=== PATIENT | male | born 1950 | race African-American/Black ===

== ENCOUNTER 2017-01-05 13:22 | Inpatient (IN) | payer MEDICARE, MEDICAID ==
[~2017-01-05] VITALS: Ht 177.8 cm; Wt 68.0 kg
[2017-01-05] VITALS (7 sets, daily range): BP systolic 124–164; BP diastolic 62–88; PULSE 86–108; RESP 18–22; TEMP 98.5–98.8; O2SAT 100
[2017-01-05] MEDS ORDERED: SODIUM CHLOR 0.9% 1000 ML INJ 1,000 ML IV ONE (13:41)
[2017-01-05] MEDS ORDERED: SODIUM CHLORIDE 0.9% FLUSH 10 ML FLUSH IVF PRN (13:45)
--- NOTE | 2017-01-05 13:55 | RADRPT ---
EXAM DATE/TIME: 01/05/2017 13:52 [facility] COMPARISON: No previous studies available for comparison. INDICATIONS : Shortness of breath. MEDICAL HISTORY : None. SURGICAL HISTORY : None. ENCOUNTER: Initial ACUITY: 1 day PAIN SCORE: Non-responsive. LOCATION: Bilateral chest FINDINGS: A single view of the chest demonstrates the lungs to be symmetrically aerated without evidence of mas s, infiltrate or effusion. The cardiomediastinal contours are unremarkable. Osseous structures are intact. CONCLUSION: Normal examination. Henrik Mclaughlin MD on January 05, 2017 at 13:54 Board Certified Radiologist. This report was verified electronically.
[2017-01-05 13:58] LABS: BLOOD GAS BASE EXCESS -21.1 mmol/L (-2-2); BLOOD GAS CARBOXYHEMOGLOBIN 1.1 % (0-4); BLOOD GAS HCO3 7 mmol/L (22-26); BLOOD GAS METHEMOGLOBIN 0.9 % (0-2); BLOOD GAS O2 HGB SATURATION 97 % (90-100); BLOOD GAS OXYGEN CONTENT 20.4 Vol % (12.0-20.0); BLOOD GAS PCO2 21 mmHg (38-42); BLOOD GAS PO2 322 mmHG (61-120); BLOOD GAS TOTAL HGB 14.3 G/DL (12.0-16.0); CRITICAL VALUE YES; DRAW SITE LT RADIAL; FIO2 100 %; LITER FLOW 15 L/M; NUMBER OF ARTERIAL PUNCTURES 1; STAT YES; ULNAR PULSE PRESENT
[2017-01-05 14:04] LABS: AUTOMATED NEUTROPHIL # 14.4 TH/MM3 (1.8-7.7); BASOPHIL # 0.1 TH/MM3 (0-0.2); BASOPHIL % 0.4 % (0.0-2.0); HEMATOCRIT 51.1 % (39.0-51.0); LYMPH % 5.9 % (9.0-44.0); MEAN CELL VOLUME 94.1 FL (80.0-100.0); MEAN CORPUSCULAR HEMOGLOBIN 29.5 PG (27.0-34.0); MEAN CORPUSCULAR HGB CONC 31.3 % (32.0-36.0); MONO % 12.2 % (0.0-8.0); NEUT % 81.5 % (16.0-70.0); PLATELET COUNT 220 TH/MM3 (150-450); RED BLOOD COUNT 5.43 MIL/MM3 (4.50-5.90); RED CELL DISTRIBUTION WIDTH 14.1 % (11.6-17.2); WHITE BLOOD COUNT 17.7 TH/MM3 (4.0-11.0)
[2017-01-05 14:06] LABS: HEMO FLAGS AUTO DIFF
[2017-01-05] MEDS: DEXT 5%-NACL 0.9% 1000 ML INJ 1,000 ML IV SCH ×2 (14:13→19:13)
[2017-01-05] MEDS ORDERED: POTASSIUM CHLOR 20 MEQ PREMIX 100 ML IV PRN ×5 (14:15)
[2017-01-05] MEDS ORDERED: POTASSIUM CHLOR 40 MEQ PREMIX 100 ML IV PRN ×2 (14:15)
[2017-01-05] MEDS ORDERED: INSULIN HUMAN REGULAR 1,000 UNITS/10 ML VIAL IV PUSH ONE (14:15)
[2017-01-05] MEDS ORDERED: SODIUM BICARBONATE 8.4% SOLN 50 MEQ/50 ML VIAL IV PUSH PRN ×2 (14:15)
[2017-01-05 14:37] LABS: ALT (GPT) 41 U/L (12-78); ANION GAP 25 MEQ/L (5-15); BACTERIA, URINE RARE /hpf; BICARBONATE 8.8 MEQ/L (21.0-32.0); BLOOD UREA NITROGEN 68 MG/DL (7-18); BLOOD, URINE NEG (NEG); CHLORIDE 96 MEQ/L (98-107); GLOMERULAR FILTRATION RATE 12 ML/MIN (>89); GLUCOSE,URINE 1000 mg/dL (NEG); HYALINE CAST, URINE 1 /lpf (RARE); KETONE, URINE 40 mg/dL (NEG); NITRITE,URINE NEG (NEG); SODIUM (NA) 130 MEQ/L (136-145); SQUAMOUS EPITHELIAL CELL URINE <1 /hpf (0-5); TOTAL BILIRUBIN ADULT 1.1 MG/DL (0.2-1.0); URINE COLOR YELLOW (YELLW/STRAW)
[2017-01-05 14:38] LABS: COMMENT (UR) CULT NOT INDICATED; CULTURE IF INDICATED CULT NOT INDICATED
[2017-01-05 14:40] LABS: AST (GOT) 54 U/L (15-37); POTASSIUM 7.9 MEQ/L (3.5-5.1)
[2017-01-05 14:42] LABS: SCAN/DIFF AUTO DIFF CONFIRMED
[2017-01-05 14:43] LABS: ALKALINE PHOSPHATASE 72 U/L (45-117); CREATINE KINASE 283 U/L (39-308)
[2017-01-05 14:57] LABS: CKMB 1.9 NG/ML (0.5-3.6)
[2017-01-05] MEDS: SODIUM CHLOR 0.9% 1000 ML INJ 1,000 ML IV SCH ×3 (14:59→23:07)
[2017-01-05] MEDS ORDERED: CALCIUM CHLORIDE 10% SOLN 1 GRAM/10 ML SYR IV PUSH ONE (15:00)
[2017-01-05] MEDS: INSULIN REGULAR (IV INFUSION) 100 UNITS in SODIUM CHLORIDE 0.9% INJ 99 ML IV PRN (15:01)
--- NOTE | 2017-01-05 15:22 | PD ---
HPI Chief Complaint: Diabetic Time Seen by Provider: 13:41 Travel History International Travel<30 days: No Contact w/Intl Traveler<30days: No Traveled to known affect area: No History of Present Illness HPI This is a 66-year-old male with a history of hypertension, diabetes mellitus, who presents here after not being seen for several days and possibly up to a week. The patient had a well-being check with a found him sitting on the toilet with his clothes on. The patient was altered and unable to give history. According to the paramedics they noted he had a history of a stent in his left lower extremity. They checked his blood sugar and found to high to register. They started intravenous fluid in transferred him here. The patient is unable to give any history. [facility] Past Medical History Medical History: Unable to Obtain Diabetes: Yes Patient Takes Glucophage: No (uto) Influenza Vaccination: No (uto) Past Surgical History Surgical History: Unable to Obtain Social History Alcohol Use: No Tobacco Use: No Substance Use: No Allergies-Medications (Allergen,Severity, Reaction): Coded Allergies: No Allergy Information Available (Unverified , 01/05/17) unable to obtain-nonverbal at this time Reported Meds & Prescriptions Reported Meds & Active Scripts Active Active Prescriptions or Reported Medications Unobtainable Review of Systems ROS Limitations: Altered Mental Status (unable to obtain review of systems secondary to the patient's altered mental status.) Physical Exam Narrative GENERAL: Well-developed male in no acute respiratory distress. The patient is confused and unable to answer questions. SKIN: Focused skin assessment warm/dry. HEAD: Atraumatic. Normocephalic. EYES: No scleral icterus. No injection or drainage. ENT: No nasal bleeding or discharge. Mucous membranes pink and moist. NECK: Trachea midline. No JVD. CARDIOVASCULAR: Regular rate and rhythm. No murmur appreciated. RESPIRATORY: No accessory muscle use. Clear to auscultation. Breath sounds equal bilaterally. GASTROINTESTINAL: Abdomen soft, non-tender, nondistended. Hepatic and splenic margins not palpable. MUSCULOSKELETAL: No obvious deformities. No clubbing. No cyanosis. No edema. NEUROLOGICAL: Awake and alert. No obvious cranial nerve deficits. Motor grossly within normal limits. Normal speech. PSYCHIATRIC: Appropriate mood and affect; insight and judgment normal. Data Data Last Documented VS Vital Signs Date Time Temp Pulse Resp B/P (MAP) Pulse Ox O2 Delivery O2 Flow Rate FiO2 01/05/17 15:12 86 19 164/75 (104) 100 Nasal Cannula 3.00 Orders Orders Complete Blood Count With Diff (01/05/17 13:41) Comprehensive Metabolic Panel (01/05/17 13:41) Beta Hydroxybutyrate (Acetone) (01/05/17 13:41) Lactic Acid (01/05/17 13:41) Urinalysis - C+S If Indicated (01/05/17 13:41) Chest, Single Ap (01/05/17 13:41) Arterial Blood Gas (Abg) (01/05/17 13:41) Ecg Monitoring (01/05/17 13:41) Iv Access Insert/Monitor (01/05/17 13:41) Oximetry (01/05/17 13:41) NPO (01/05/17 13:41) Sodium Chlor 0.9% 1000 Ml Inj (Ns 1000 M (01/05/17 13:41) Sodium Chloride 0.9% Flush (Ns Flush) (01/05/17 13:45) Troponin I (01/05/17 13:41) Lipase (01/05/17 13:41) Ckmb (Isoenzyme) Profile (01/05/17 13:41) Arterial Blood Gas (Abg) (01/05/17 13:47) Logistics Manager / Telemetry [id number] (01/05/17 14:13) ^ Insert Iv (01/05/17 14:13) Diet Npo (01/05/17 Dinner) Sodium Chlor 0.9% 1000 Ml Inj (Ns 1000 M (01/05/17 14:13) Dext 5%-Nacl 0.9% 1000 Ml Inj (D5w-Ns 10 (01/05/17 14:13) Insulin Human Regular Inj (Novolin R Inj (01/05/17 14:15) Insulin Regular (Iv Infusion) (Novolin R (01/05/17 14:15) Potassium Chlor 40 Meq Premix (Kcl 40 Me (01/05/17 14:15) Potassium Chlor 40 Meq Premix (Kcl 40 Me (01/05/17 14:15) Potassium Chlor 20 Meq Premix (Kcl 20 Me (01/05/17 14:15) Potassium Chlor 20 Meq Premix (Kcl 20 Me (01/05/17 14:15) Potassium Chlor 20 Meq Premix (Kcl 20 Me (01/05/17 14:15) Potassium Chlor 20 Meq Premix (Kcl 20 Me (01/05/17 14:15) Potassium Chlor 20 Meq Premix (Kcl 20 Me (01/05/17 14:15) Potassium Chlor 20 Meq Premix (Kcl 20 Me (01/05/17 14:15) Sodium Bicarbonate 8.4% Inj (Sodium Bica (01/05/17 14:15) Sodium Bicarbonate 8.4% Inj (Sodium Bica (01/05/17 14:15) Basic Metabolic Panel (Bmp) (01/05/17 19:13) Basic Metabolic Panel (Bmp) (01/06/17 01:13) Basic Metabolic Panel (Bmp) (01/06/17 07:13) Basic Metabolic Panel (Bmp) (01/06/17 13:13) Magnesium (Mg) (01/05/17 19:13) Magnesium (Mg) (01/06/17 01:13) Magnesium (Mg) (01/06/17 07:13) Magnesium (Mg) (01/06/17 13:13) Phosphorus (Po4) (01/05/17 19:13) Phosphorus (Po4) (01/06/17 01:13) Phosphorus (Po4) (01/06/17 07:13) Phosphorus (Po4) (01/06/17 13:13) Beta Hydroxybutyrate (Acetone) (01/06/17 01:13) Beta Hydroxybutyrate (Acetone) (01/06/17 13:13) CKMB (01/05/17 13:50) CKMB% (01/05/17 13:50) Calcium Chloride Inj (Calcium Chloride I (01/05/17 15:00) Sodium Bicarbonate 8.4% Inj (Sodium Bica (01/05/17 15:30) Sodium Bicarbonate 8.4% Inj (Sodium Bica (01/05/17 15:30) Admit Order (Ed Use Only) (01/05/17 15:19) Labs Laboratory Tests Test 01/05/17 13:47 01/05/17 13:50 Blood Gas Puncture Site LT RADIAL Blood Gas Patient Temperature 37.0 Blood Gas HCO3 7 mmol/L Blood Gas Base Excess -21.1 mmol/L Blood Gas Oxygen Saturation 97 % Arterial Blood pH 7.12 Arterial Blood Partial Pressure CO2 21 mmHg Arterial Blood Partial Pressure O2 322 mmHG Arterial Blood Oxygen Content 20.4 Vol % Arterial Blood Carboxyhemoglobin 1.1 % Arterial Blood Methemoglobin 0.9 % Blood Gas Hemoglobin 14.3 G/DL Oxygen Delivery Device Non-Rebreathing Mask Blood Gas Liter Flow 15 L/M Blood Gas Inspired Oxygen 100 % White Blood Count 17.7 TH/MM3 Red Blood Count 5.43 MIL/MM3 Hemoglobin 16.0 GM/DL Hematocrit 51.1 % Mean Corpuscular Volume 94.1 FL Mean Corpuscular Hemoglobin 29.5 PG Mean Corpuscular Hemoglobin Concent 31.3 % Red Cell Distribution Width 14.1 % Platelet Count 220 TH/MM3 Mean Platelet Volume 10.3 FL Neutrophils (%) (Auto) 81.5 % Lymphocytes (%) (Auto) 5.9 % Monocytes (%) (Auto) 12.2 % Eosinophils (%) (Auto) 0.0 % Basophils (%) (Auto) 0.4 % Neutrophils # (Auto) 14.4 TH/MM3 Lymphocytes # (Auto) 1.0 TH/MM3 Monocytes # (Auto) 2.2 TH/MM3 Eosinophils # (Auto) 0.0 TH/MM3 Basophils # (Auto) 0.1 TH/MM3 CBC Comment AUTO DIFF Differential Comment AUTO DIFF CONFIRMED Urine Color YELLOW Urine Turbidity CLEAR Urine pH 5.0 Urine Specific [facility] 1.017 Urine Protein TRACE mg/dL Urine Glucose (UA) 1000 mg/dL Urine Ketones 40 mg/dL Urine Occult Blood NEG Urine Nitrite NEG Urine Bilirubin NEG Urine Urobilinogen LESS THAN 2.0 MG/DL Urine Leukocyte Esterase NEG Urine WBC LESS THAN 1 /hpf Urine Squamous Epithelial Cells <1 /hpf Urine Bacteria RARE /hpf Urine Hyaline Casts 1 /lpf Microscopic Urinalysis Comment CULT NOT INDICATED Blood Urea Nitrogen 68 MG/DL Creatinine 5.03 MG/DL Random Glucose 1116 MG/DL Total Protein 8.8 GM/DL Albumin 3.4 GM/DL Calcium Level 9.0 MG/DL Alkaline Phosphatase 72 U/L Aspartate Amino Transf (AST/SGOT) 54 U/L Alanine Aminotransferase (ALT/SGPT) 41 U/L Total Bilirubin 1.1 MG/DL Sodium Level 130 MEQ/L Potassium Level 7.9 MEQ/L Chloride Level 96 MEQ/L Carbon Dioxide Level 8.8 MEQ/L Anion Gap 25 MEQ/L Estimat Glomerular Filtration Rate 12 ML/MIN Lactic Acid Level 5.5 mmol/L Total Creatine Kinase 283 U/L Creatine Kinase MB 1.9 NG/ML Troponin I 0.08 NG/ML Lipase 3507 U/L B-Hydroxybutyrate 11.40 MMOL/L MDM Medical Decision Making Medical Screen Exam Complete: Yes Emergency Medical Condition: Yes Differential Diagnosis DKA versus hyperosmolar nonketotic diabetic acidosis versus sepsis versus dehydration Narrative Course 66-year-old male presents with complaints of not being seen since last Sunday. Patient also found unresponsive sitting on the toilet with his clothes on. The patient has a blood sugar of 1100. He's also got a potassium of 7.9. His lipase is 3500. Patient's white count is 17,700. The patient is also an acute renal failure. The patient has been started on insolent drip. He's been given 2 A of IVD bicarbonate. He's been given a bolus of 7.5 units of insolent. He' s also been given calcium chloride 1 g I V times one dose. Case was discussed with Dr. Pate, neighborhood aide, who agrees with the admission. He'll place admission orders. The patient is extremely ill and will require intensive care service. Critical Care Narrative Aggregate critical care time was 60 minutes. Time to perform other separately billable procedures was not included in the critical care time. My time did not include minutes spent treating any other patients simultaneously or on activities that did not directly contribute to the patient's treatment. The services I provided to this patient were to treat and/or prevent clinically significant deterioration that could result in: I provided critical care services requiring my management, as noted below: Chart data review, documentation time, medication orders and management, vital sign assessments/reviewing monitor data, ordering and reviewing lab tests, ordering and interpreting/reviewing x-rays and diagnostic studies, care of the patient and discussion of the patient with the admitting physicians. Diagnosis Primary Impression: Diabetic ketoacidosis Additional Impressions: Hyperkalemia Acute renal failure Acute pancreatitis Leukocytosis Admitting Information Admitting Physician Requests: Admit Scripts Unable to Obtain Active Prescriptions or Reported Meds Puneet Erickson MD Jan 05, 2017 15:22
[2017-01-05] MEDS ORDERED: BISACODYL 10 MG SUPP RECTAL PRN (15:30)
[2017-01-05] MEDS ORDERED: SENNOSIDES 8.6 MG TAB PO PRN (15:30)
[2017-01-05] MEDS ORDERED: MISCELLANEOUS NURSING INFORMATION XX SCH (15:30)
[2017-01-05] MEDS ORDERED: SODIUM BICARBONATE 8.4% INJ 50 MEQ/50 ML SYR IV PUSH ONE ×3 (15:30→16:00)
[2017-01-05] MEDS ORDERED: LACTULOSE SYRUP 20 GM/30 ML CUP PO PRN (15:30)
[2017-01-05] MEDS ORDERED: MAGNESIUM HYDROXIDE SUSP 30 ML CUP PO PRN (15:30)
[2017-01-05] MEDS ORDERED: CHLORHEXIDINE GLUCONATE 2 % 1 PACK (2 CLOTHS) TOP PRN (15:30)
[2017-01-05] MEDS: RESP: ALBUTEROL 2.5 MG/IPRATROPIUM 0.5 MG NEB (SCH) INH ×2 (15:37→20:31)
--- NOTE | 2017-01-05 16:43 | MH ---
cc: REBECCA BENITO M.D. DATE OF ADMISSION: 01/05/2017 DATE OF : 1950. HISTORY OF PRESENT ILLNESS: The patient is a 66-year-old male with past medical history of hypertension, peripheral vascular disease, type 2 diabetes mellitus who presented to [facility] emergency department for altered mental status. According to the patient's sister the last time she saw him was five days ago, she called the fire department today to check on him and when they arrived they saw the patient sitting in the bathroom not sure for how long and was unresponsive. The patient was altered and unable to give any history. His blood sugar at the scene was too high to register the and they started IV fluids and transferred into the emergency department. In the emergency room the patient was found to be in DKA and renal failure. His BMP showed severe hyperglycemia with a blood sugar of 1116 with severe metabolic acidosis and acute renal failure. His creatinine 5.0 with a BUN 68 in addition the patient was hyperkalemic with a potassium level 7.9 and a bicarb of 8.8. ABG showed severe metabolic acidosis with a pH of 7.12, CO2 21, pAO2 322, bicarb seven and saturation of 97%. Other significant labs on arrival showed lactic acidemia with elevated lactic acid level of 5.5 and elevated lipase level of 3507. His beta-hydroxybutyrate was measured at 11.4. Most of the history was obtained from the review of reviewing medical records and from my discussion with a sister who was present at the bedside. A chest x-ray In the emergency department showed no evidence of any acute cardiopulmonary disease. When seen in the emergency room the patient slowly responded to some the questions that was asked, He denies any abdominal pain, nausea or vomiting. In the emergency department was given 3 liters of crystalloids along with insulin 7.5 and units IV push and 1 gram of calcium chloride. He was placed on insulin drip in addition to amps of sodium bicarb was ordered. PAST MEDICAL HISTORY 1. Hypertension 2. Peripheral vascular disease 3. Type 2 diabetes mellitus 4. Gastric stromal tumor. PAST SURGICAL HISTORY 1. Partial gastrectomy 2. previous balloon angioplasty 3. mechanical thrombectomy for ischemia left lower extremity 4. Stent placement. ALLERGIES Unknown. SOCIAL HISTORY Ex-smoker, nondrinker. MEDICATIONS Include Insulin The rest unknown. REVIEW OF SYSTEMS Unobtainable. PHYSICAL EXAMINATION: IN GENERAL: A 66-year-old male lying in bed in no acute distress. He is able to open up his eyes however does not respond much to questions. VITAL SIGNS: Pulse of 89, respiratory rate of 18, blood pressure 159/79, saturation 100% on 3 liters oxygen. HEAD, EYES, EARS, NOSE, AND THROAT: Atraumatic, normocephalic pupil equal and reactive to light accommodation X on muscles intact. Conjunctivae pink. Nonicteric sclerae. Oral mucosa dry mucous membranes noted. NECK: Supple. No JVD, adenopathy or thyromegaly. Trachea midline CARDIOVASCULAR SYSTEM: Regular rate and rhythm. Normal S1, S2. No murmurs, rubs or gallops. PULMONARY: Bilateral equal entry. No rales or wheezing. ABDOMEN: Soft, nontender, no distension. Positive bowel sounds. EXTREMITIES: No cyanosis, clubbing or edema. NEUROLOGIC: No known no focal sensory deficit. LABORATORY DATA Sodium of 30,007.9, chloride 96, CO2 at 8.8 and anion gap 25, BUN 68, creatinine 5, glucose 1116, lactic acid 5.5, total bilirubin 1.1, AST 54, ALT 41, alk phos 72, total CK 283, troponin 0.08, lipase 3507 WBC 17.7, hemoglobin 16, hematocrit 51, platelet count of 220, beta-hydroxybutyrate 11.4. Urinalysis showed positive for glucose, ketones negative nitrite, rare bacteria. Chest x-ray Negative for acute disease. IMPRESSION 1. Diabetic ketoacidosis. 2. Acute kidney injury. 3. Anion gap metabolic acidosis. 4. Hyperkalemia 5. Hyponatremia. 6. Lactic acidemia 7. Altered mental status likely secondary to above. 8. Leukocytosis which could be stress related. 9. Elevated lipase level next elevated AST. 10. Mild elevation troponin which could be secondary to renal failure. 11. Hypertension 12. History of type 2 diabetes mellitus. 13. Peripheral vascular disease. 14. History of gastric stromal tumor RECOMMENDATIONS: 1. Monitor neuro status closely and avoid any sedatives. Will proceed with CT scan of the brain to rule out acute intracranial process. 2. Check ammonia level and alcohol level. 3. Continue with oxygen maintain sats above 92%. 4. Bronchodilators in the form of DuoNeb q. 6+ q. 2 q p.r.n. for shortness of breath 5. Monitor heart rate and blood pressure closely and maintain MAP greater 65 mmHg. 6. Serial lactic acid monitoring. 7. The patient was given 3 liters of crystalloids in the emergency department. We will continue with NS at 250 ml per hour for diabetic ketoacidosis protocol. 8. Monitor cardiac enzymes and troponins and will obtain 2-D echo to evaluate LV function. 9. Monitor renal function Is and Os and avoid nephrotoxins, replacement as needed. 10. IV fluids as stated above. I will check basic metabolic profile, mag phos level q six and beta-hydroxybutyrate q. 12-hour. 11. Keep n.p.o. for now. 12. We will place on Pepcid 10 mg IV q. 12 for GI prophylaxis. Monitor liver function tests and lipase level. 13. We will proceed with a CT scan of the abdomen and pelvis without contrast to rule out acute abdominal process given elevated lipase and leukocytosis. 14. Monitor CBC 15. Continue with insulin drip per DKA protocol and electrolytes q. 6-hour as stated above. Once blood sugar is less than 250. Will switch IV fluids to D5 NS at 200 ml an hour and the patient was also given 2 ampules of sodium bicarb. 16. We will hold off on antibiotics at this time as there is no signs of infectious process. Monitor for signs of infection which include fever and WBC and patent and will check blood cultures x2. 17. GI prophylaxis with Pepcid and DVT prophylaxis with SCDs. Will start chemical DVT prophylaxis if CT scan of the brain is negative. Further recommendations will be based on hospital course. MD JESUSITA Donovan/reddy /3:57 PM /4:33 PM
--- NOTE | 2017-01-05 17:04 | RADRPT ---
EXAM DATE/TIME: 01/05/2017 16:32 [facility] COMPARISON: No previous studies available for comparison. INDICATIONS : Mental status change. RADIATION DOSE: 6.64 CTDIvol (mGy) MEDICAL HISTORY : None SURGICAL HISTORY : None. ENCOUNTER: Initial ACUITY: 1 day PAIN SCALE: Non-responsive LOCATION: Cranial TECHNIQUE: Multiple contiguous axial images were obtained of the head. Using automated exposure control and adjustment of the mA and/or kV according to patient size, radiation dose was kept as low as reasonably achievable to obtain optimal diagnostic quality images. DICOM format image data is av ailable electronically for review and comparison. FINDINGS: Noncontrast head CT demonstrates there is a 5 mm hypodensity within the right basal severo glia. I suspect there is an old lacunar infarct. There is a triangular 1.4 cm hypodensity in the le ft caudate nucleus I suspect an old lacunar infarct. There is a hypodensity in the external capsule on the right likely old infarct. I do not see any obvious acute edema or hemorrhage. There is no acu te mass or mass effect. Globes and sinuses are unremarkable. CONCLUSION: Hypodensities I suspect are chronic lacunar infarcts. No definite acute hemorrhage o r edema. Henrik Mclaughlin MD on January 05, 2017 at 16:59 Board Certified Radiologist. This report was verified electronically.
--- NOTE | 2017-01-05 17:09 | RADRPT ---
EXAM DATE/TIME: 01/05/2017 16:38 [facility] COMPARISON: No previous studies available for comparison. INDICATIONS : Hyperkalemia, elevated lipase. ORAL CONTRAST: No oral contrast ingested. RADIATION DOSE: 56.35 CTDIvol (mGy) MEDICAL HISTORY : None SURGICAL HISTORY : None. ENCOUNTER: Initial ACUITY: 1 day PAIN SCALE: Non-responsive LOCATION: abdomen TECHNIQUE: Volumetric scanning of the abdomen and pelvis was performed. Using automated exposure control and ad justment of the mA and/or kV according to patient size, radiation dose was kept as low as reasonably achievable to obtain optimal diagnostic quality images. DICOM format image data is available electro nically for review and comparison. FINDINGS: LOWER LUNGS: The visualized lower lungs are clear. LIVER: Homogeneous density without lesion. There is no dilation of the biliary tree. No calcified gallston es. SPLEEN: Normal size without lesion. PANCREAS: Within normal limits. KIDNEYS: Normal in size and shape. There is no mass, stone, or hydronephrosis. ADRENAL GLANDS: Within normal limits. VASCULAR: There is no aortic aneurysm. BOWEL/MESENTERY: The stomach, small bowel, and colon demonstrate no acute abnormality. There is no free intraperitone al air or fluid. A few colonic diverticuli. No acute inflammation. ABDOMINAL WALL: Within normal limits. RETROPERITONEUM: There is no lymphadenopathy. BLADDER: No wall thickening or mass. REPRODUCTIVE: Within normal limits. INGUINAL: There is no lymphadenopathy or hernia. MUSCULOSKELETAL: Within normal limits for patient age. CONCLUSION: 1. No acute abnormality observed. In particular, no appreciable inflammatory process involving the pa ncreas. The pancreas is somewhat blurred by breathing motion artifact limiting its evaluation. 2. Colonic diverticulosis without acute inflammation. Gama Rivers Jr., MD on January 05, 2017 at 17:03 Board Certified Radiologist. This report was verified electronically.
[2017-01-05 17:32] LABS: ALCOHOL LESS THAN 3 MG/DL (0-5)
[2017-01-05 20:32] LABS: BICARBONATE 14.5 MEQ/L (21.0-32.0); MAGNESIUM 2.6 MG/DL (1.5-2.5); POTASSIUM 3.7 MEQ/L (3.5-5.1)
[2017-01-05] MEDS: DOCUSATE SODIUM 50 MG/SENNA 8.6 MG TAB PO SCH (20:54)
[2017-01-05] MEDS: POTASSIUM CHLOR 20 MEQ PREMIX 100 ML IV PRN ×2 (21:06→23:15)
[2017-01-05 21:25] LABS: BLOOD GAS BASE EXCESS -8.9 mmol/L (-2-2); BLOOD GAS CARBOXYHEMOGLOBIN 1.1 % (0-4); BLOOD GAS HCO3 16 mmol/L (22-26); BLOOD GAS METHEMOGLOBIN 1.6 % (0-2); BLOOD GAS O2 HGB SATURATION 94 % (90-100); BLOOD GAS OXYGEN CONTENT 20.7 Vol % (12.0-20.0); BLOOD GAS PCO2 31 mmHg (38-42); BLOOD GAS PO2 96 mmHg (61-120); BLOOD GAS TOTAL HGB 15.6 G/DL (12.0-16.0); TEMP CORR TO 98.6
[2017-01-05 21:26] LABS: CRITICAL VALUE YES; DRAW SITE RT RADIAL; FIO2 21 %; NUMBER OF ARTERIAL PUNCTURES 2; OXYGEN DEVICE ROOM AIR; STAT NO; ULNAR PULSE PRESENT
--- NOTE | 2017-01-05 23:54 | PD.CONS ---
HPI Service Nephrology Consult Requested By Dr. Pate Reason for Consult Hyperkalemia with acute renal failure Primary Care Physician Unknown History of Present Illness Patient is a 48-year-old Afro-Polish male with history of insulin-dependent diabetes who was admitted with acute renal failure, diabetic ketoacidosis, hyperkalemia he was found in altered mental status appears confused he has been started on insulin drip and his potassium has dropped, patient is passing urine with improvement in his creatinine to 4.2, patient potassium was 7.9 minutes dropped to 3.7 Review of Systems ROS Limitations: Clinical Condition Past Family Social History Allergies: Coded Allergies: No Allergy Information Available (Unverified , 01/05/17) unable to obtain-nonverbal at this time Past Medical History Diabetes, Hypertension Peripheral vascular disease Gastric stomal tumor Past Surgical History Previous angioplasty Partial gastrectomy Left leg thrombosis removed Reported Medications Reported Meds & Active Scripts Active Active Prescriptions or Reported Medications Unobtainable Active Ordered Medications Current Medications Medications (Trade) Dose Ordered Sig/Nereida Route Start Time Stop Time Status Last Admin (NS Flush) 2 ml UNSCH PRN IVF 01/05/17 13:45 Sodium Chloride 1,000 ml @ 250 mls/hr Q4H IV 01/05/17 14:13 01/05/17 23:07 Dextrose/Sodium Chloride 1,000 ml @ 200 mls/hr Q5H IV 01/05/17 14:13 Insulin Human Regular 100 units/ Sodium Chloride 100 ml @ 7.5 mls/hr TITRATE PRN IV 01/05/17 14:15 01/05/17 15:01 Potassium Chloride 100 ml @ 100 mls/hr Q1H PRN IV 01/05/17 14:15 Potassium Chloride 100 ml @ 50 mls/hr Q2H PRN IV 01/05/17 14:15 Potassium Chloride 100 ml @ 100 mls/hr Q1H PRN IV 01/05/17 14:15 Potassium Chloride 100 ml @ 100 mls/hr Q1H PRN IV 01/05/17 14:15 Potassium Chloride 100 ml @ 50 mls/hr Q2H PRN IV 01/05/17 14:15 Potassium Chloride 100 ml @ 50 mls/hr Q2H PRN IV 01/05/17 14:15 Potassium Chloride 100 ml @ 50 mls/hr Q2H PRN IV 01/05/17 14:15 01/05/17 23:15 Potassium Chloride 100 ml @ 50 mls/hr Q2H PRN IV 01/05/17 14:15 (Sodium Bicarbonate 8.4% Inj) 100 meq UNSCH PRN IV PUSH 01/05/17 14:15 (Sodium Bicarbonate 8.4% Inj) 50 meq UNSCH PRN IV PUSH 01/05/17 14:15 (Duoneb Neb) 1 ampule Q6HR NEB INH 01/05/17 16:00 01/05/17 20:31 (Duoneb Neb) 1 ampule Q2HR NEB PRN INH 01/05/17 15:30 Miscellaneous Information 1 Q361D XX 01/05/17 15:30 (Chlorhexidine 2% Cloth) 3 pack Taper DAILY@04 TOP 01/06/17 04:00 01/02/18 03:59 (Chlorhexidine 2% Cloth) 3 pack UNSCH PRN TOP 01/05/17 15:30 (Giovana-Colace) 1 tab BID PO 01/05/17 21:00 (Milk Of Magnesia Liq) 30 ml Q12H PRN PO 01/05/17 15:30 (Senokot) 17.2 mg Q12H PRN PO 01/05/17 15:30 (Dulcolax Supp) 10 mg DAILY PRN RECTAL 01/05/17 15:30 (Lactulose Liq) 30 ml DAILY PRN PO 01/05/17 15:30 Family History Unknown Social History Previous history of smoking denied alcohol Physical Exam Vital Signs Vital Signs Date Time Temp Pulse Resp B/P (MAP) Pulse Ox O2 Delivery O2 Flow Rate FiO2 01/05/17 22:00 102 01/05/17 20:00 98.5 97 18 164/77 (106) 100 01/05/17 20:00 97 01/05/17 18:00 98.8 96 18 147/74 (98) 100 01/05/17 17:25 01/05/17 16:40 108 20 163/88 (113) 100 Nasal Cannula 3.00 01/05/17 15:33 89 18 159/79 (105) 100 Nasal Cannula 3.00 01/05/17 15:12 86 19 164/75 (104) 100 Nasal Cannula 3.00 01/05/17 13:30 86 22 124/62 (82) 100 Physical Exam GENERAL: Well-nourished, well-developed patient. SKIN: Warm and dry. HEAD: Normocephalic. EYES: No scleral icterus. No injection or drainage. NECK: Supple, trachea midline. No JVD or lymphadenopathy. CARDIOVASCULAR: Regular rate and rhythm without murmurs, gallops, or rubs. RESPIRATORY: Breath sounds equal bilaterally. No accessory muscle use. GASTROINTESTINAL: Abdomen soft, non-tender, nondistended. EXTREMITIES: No cyanosis, or edema. NEUROLOGICAL: Awake, alert, and oriented x 3. Non-focal. Laboratory Laboratory Tests Test 01/05/17 13:47 01/05/17 13:50 01/05/17 16:00 01/05/17 17:30 Blood Gas Puncture Site LT RADIAL Blood Gas Patient Temperature 37.0 Blood Gas HCO3 7 Blood Gas Base Excess -21.1 Blood Gas Oxygen Saturation 97 Arterial Blood pH 7.12 Arterial Blood Partial Pressure CO2 21 Arterial Blood Partial Pressure O2 322 Arterial Blood Oxygen Content 20.4 Arterial Blood Carboxyhemoglobin 1.1 Arterial Blood Methemoglobin 0.9 Blood Gas Hemoglobin 14.3 Oxygen Delivery Device Non-Rebreathing Mask Blood Gas Liter Flow 15 Blood Gas Inspired Oxygen 100 White Blood Count 17.7 Red Blood Count 5.43 Hemoglobin 16.0 Hematocrit 51.1 Mean Corpuscular Volume 94.1 Mean Corpuscular Hemoglobin 29.5 Mean Corpuscular Hemoglobin Concent 31.3 Red Cell Distribution Width 14.1 Platelet Count 220 Mean Platelet Volume 10.3 Neutrophils (%) (Auto) 81.5 Lymphocytes (%) (Auto) 5.9 Monocytes (%) (Auto) 12.2 Eosinophils (%) (Auto) 0.0 Basophils (%) (Auto) 0.4 Neutrophils # (Auto) 14.4 Lymphocytes # (Auto) 1.0 Monocytes # (Auto) 2.2 Eosinophils # (Auto) 0.0 Basophils # (Auto) 0.1 CBC Comment AUTO DIFF Differential Comment AUTO DIFF CONFIRMED Urine Color YELLOW Urine Turbidity CLEAR Urine pH 5.0 Urine Specific [place] 1.017 Urine Protein TRACE Urine Glucose (UA) 1000 Urine Ketones 40 Urine Occult Blood NEG Urine Nitrite NEG Urine Bilirubin NEG Urine Urobilinogen LESS THAN 2.0 Urine Leukocyte Esterase NEG Urine WBC LESS THAN 1 Urine Squamous Epithelial Cells <1 Urine Bacteria RARE Urine Hyaline Casts 1 Microscopic Urinalysis Comment CULT NOT INDICATED Blood Urea Nitrogen 68 Creatinine 5.03 Random Glucose 1116 909 Total Protein 8.8 Albumin 3.4 Calcium Level 9.0 Alkaline Phosphatase 72 Aspartate Amino Transf (AST/SGOT) 54 Alanine Aminotransferase (ALT/SGPT) 41 Total Bilirubin 1.1 Sodium Level 130 Potassium Level 7.9 Chloride Level 96 Carbon Dioxide Level 8.8 Anion Gap 25 Estimat Glomerular Filtration Rate 12 Lactic Acid Level 5.5 Total Creatine Kinase 283 Creatine Kinase MB 1.9 Troponin I 0.08 Lipase 3507 Ethyl Alcohol Level LESS THAN 3 B-Hydroxybutyrate 11.40 Nasal Screen MRSA (PCR) MRSA NOT DETECTED Test 01/05/17 18:15 01/05/17 19:30 01/05/17 21:15 Urine Occult Blood LARGE Blood Urea Nitrogen 66 Creatinine 4.22 Random Glucose 619 Calcium Level 8.9 Phosphorus Level 3.0 Magnesium Level 2.6 Sodium Level 147 Potassium Level 3.7 Chloride Level 115 Carbon Dioxide Level 14.5 Anion Gap 18 Estimat Glomerular Filtration Rate 18 Lactic Acid Level 3.0 Troponin I 0.17 Blood Gas Puncture Site RT RADIAL Blood Gas Patient Temperature 98.6 Blood Gas HCO3 16 Blood Gas Base Excess -8.9 Blood Gas Oxygen Saturation 94 Arterial Blood pH 7.33 Arterial Blood Partial Pressure CO2 31 Arterial Blood Partial Pressure O2 96 Arterial Blood Oxygen Content 20.7 Arterial Blood Carboxyhemoglobin 1.1 Arterial Blood Methemoglobin 1.6 Blood Gas Hemoglobin 15.6 Oxygen Delivery Device ROOM AIR Blood Gas Inspired Oxygen 21 Date/Time Source Procedure Growth Status 01/05/17 22:32 Blood Peripheral Aerobic Blood Culture Pending Received 01/05/17 22:32 Blood Peripheral Anaerobic Blood Culture Pending Received Result Diagram: 01/05/17 1350 01/05/17 1930 Imaging Last Impressions Chest X-Ray 01/05/17 1341 Signed Impressions: Service Date/Time: Thursday, January 05, 2017 13:52 - CONCLUSION: Normal examination. Henrik Mclaughlin MD Head CT 01/05/17 0000 Signed Impressions: Service Date/Time: Thursday, January 05, 2017 16:32 - CONCLUSION: Hypodensities I suspect are chronic lacunar infarcts. No definite acute hemorrhage or edema. Henrik Mclaughlin MD Abdomen/Pelvis CT 01/05/17 0000 Signed Impressions: Service Date/Time: Thursday, January 05, 2017 16:38 - CONCLUSION: 1. No acute abnormality observed. In particular, no appreciable inflammatory process involving the pancreas. The pancreas is somewhat blurred by breathing motion artifact limiting its evaluation. 2. Colonic diverticulosis without acute inflammation. Gama Rivers Jr., MD Assessment and Plan Problem List: (1) Acute renal failure ICD Codes: N17.9 - Acute kidney failure, unspecified Status: Acute Plan: This is resolving with IV hydration and insulin Continue supportive care and follow BMP Acidosis has improved (2) Hyperkalemia ICD Codes: E87.5 - Hyperkalemia Status: Resolved Plan: With treatment of DKA (3) Diabetic ketoacidosis ICD Codes: E13.10 - Other specified diabetes mellitus with ketoacidosis without coma Status: Acute Plan: Improved on insulin drip Saúl Howard MD Jan 05, 2017 23:54
[2017-01-06] VITALS (14 sets, daily range): BP systolic 113–172; BP diastolic 22–78; PULSE 104–126; RESP 19–25; TEMP 98.1–99.1; O2SAT 99–100
[2017-01-06] MEDS: hydrALAZINE HCL 20 MG/ML VIAL IV PUSH PRN ×2 (01:41→23:11)
[2017-01-06] MEDS: INSULIN REGULAR (IV INFUSION) 100 UNITS in SODIUM CHLORIDE 0.9% INJ 99 ML IV PRN ×2 (02:17→09:06)
[2017-01-06 02:51] LABS: BETA-HYDROXYBUTYRATE 0.85 MMOL/L (0.00-0.39); BICARBONATE 20.7 MEQ/L (21.0-32.0); MAGNESIUM 2.4 MG/DL (1.5-2.5); POTASSIUM 4.1 MEQ/L (3.5-5.1)
[2017-01-06] MEDS: SODIUM CHLOR 0.9% 1000 ML INJ 1,000 ML IV SCH ×2 (03:14→06:13)
[2017-01-06] MEDS: POTASSIUM CHLOR 20 MEQ PREMIX 100 ML IV PRN ×2 (03:15→09:07)
[2017-01-06] MEDS: RESP: ALBUTEROL 2.5 MG/IPRATROPIUM 0.5 MG NEB (SCH) INH ×4 (03:41→20:57)
[2017-01-06] MEDS ORDERED: POTASSIUM PHOSPHATE INJ 15 MMOL in SODIUM CHLORIDE 0.9% INJ 150 ML IV ONE ×2 (04:00→15:30)
[2017-01-06 04:19] LABS: BASOPHIL % 0.1 % (0.0-2.0); HEMATOCRIT 42.6 % (39.0-51.0); HEMO FLAGS DIFF FINAL; LYMPHOCYTE # 0.3 TH/MM3 (1.0-4.8); MEAN CORPUSCULAR HEMOGLOBIN 28.2 PG (27.0-34.0); MONO % 7.2 % (0.0-8.0); NEUT % 90.7 % (16.0-70.0); PLATELET COUNT 175 TH/MM3 (150-450); RED BLOOD COUNT 5.13 MIL/MM3 (4.50-5.90); RED CELL DISTRIBUTION WIDTH 12.9 % (11.6-17.2); WHITE BLOOD COUNT 16.5 TH/MM3 (4.0-11.0)
[2017-01-06 04:55] LABS: ALKALINE PHOSPHATASE 57 U/L (45-117); ALT (GPT) 77 U/L (12-78); ANION GAP 10 MEQ/L (5-15); AST (GOT) 260 U/L (15-37); BICARBONATE 18.8 MEQ/L (21.0-32.0); BLOOD UREA NITROGEN 58 MG/DL (7-18); CHLORIDE 124 MEQ/L (98-107); GLOMERULAR FILTRATION RATE 26 ML/MIN (>89); SODIUM (NA) 153 MEQ/L (136-145); TOTAL BILIRUBIN ADULT 0.8 MG/DL (0.2-1.0)
[2017-01-06] MEDS: CHLORHEXIDINE GLUCONATE 2 % 1 PACK (2 CLOTHS) TOP SCH (05:35)
[2017-01-06] MEDS: DEXT 5%-NACL 0.9% 1000 ML INJ 1,000 ML IV SCH (07:00)
[2017-01-06 08:04] LABS: BICARBONATE 18.5 MEQ/L (21.0-32.0); MAGNESIUM 2.2 MG/DL (1.5-2.5); POTASSIUM 3.6 MEQ/L (3.5-5.1)
[2017-01-06] MEDS: DOCUSATE SODIUM 50 MG/SENNA 8.6 MG TAB PO SCH ×2 (08:26→20:29)
[2017-01-06] MEDS ORDERED: SODIUM CHLOR 0.45% 1000 ML INJ 1,000 ML IV ONE (10:00)
--- NOTE | 2017-01-06 10:08 | HHI.CCPN ---
Subjective Remarks/Hospital Course The patient is a 66-year-old male with past medical history of hypertension, peripheral vascular disease, type 2 diabetes mellitus who presented to [facility] emergency department for altered mental status. According to the patient's sister the last time she saw him was five days ago, she called the fire department today to check on him and when they arrived they saw the patient sitting in the bathroom not sure for how long and was unresponsive. The patient was altered and unable to give any history. His blood sugar at the scene was too high to register the and they started IV fluids and transferred into the emergency department. In the emergency room the patient was found to be in DKA and renal failure. His BMP showed severe hyperglycemia with a blood sugar of 1116 with severe metabolic acidosis and acute renal failure. His creatinine 5.0 with a BUN 68 in addition the patient was hyperkalemic with a potassium level 7.9 and a bicarb of 8.8. ABG showed severe metabolic acidosis with a pH of 7.12, CO2 21, pAO2 322, bicarb seven and saturation of 97%. Other significant labs on arrival showed lactic acidemia with elevated lactic acid level of 5.5 and elevated lipase level of 3507. His beta-hydroxybutyrate was measured at 11.4. Most of the history was obtained from the review of reviewing medical records and from my discussion with a sister who was present at the bedside. A chest x-ray In the emergency department showed no evidence of any acute cardiopulmonary disease. When seen in the emergency room the patient slowly responded to some the questions that was asked, He denies any abdominal pain, nausea or vomiting. In the emergency department was given 3 liters of crystalloids along with insulin 7.5 and units IV push and 1 gram of calcium chloride. He was placed on insulin drip in addition to amps of sodium bicarb was ordered. 01/06 Patient was on insulin drip 18u/hr overnight AG closed (13)this morning. Lactic acid resolved 1.1 from 5.5 on arrival. Objective Vital Signs Date Time Temp Pulse Resp B/P (MAP) Pulse Ox O2 Delivery O2 Flow Rate FiO2 01/06/17 09:00 114 23 138/65 (89) 99 01/06/17 08:00 98.6 01/05/17 16:40 Nasal Cannula 3.00 Intake and Output 01/06/17 01/06/17 01/07/17 08:00 16:00 00:00 Intake Total 3033.6 ml Output Total 1550 ml Balance 1483.6 ml Result Diagram: 01/06/17 0405 01/06/17 0726 Other Results Laboratory Tests Test 01/05/17 13:47 01/05/17 13:50 01/05/17 16:00 01/05/17 17:30 Blood Gas Puncture Site LT RADIAL Blood Gas Patient Temperature 37.0 Blood Gas HCO3 7 mmol/L Blood Gas Base Excess -21.1 mmol/L Blood Gas Oxygen Saturation 97 % Arterial Blood pH 7.12 Arterial Blood Partial Pressure CO2 21 mmHg Arterial Blood Partial Pressure O2 322 mmHG Arterial Blood Oxygen Content 20.4 Vol % Arterial Blood Carboxyhemoglobin 1.1 % Arterial Blood Methemoglobin 0.9 % Blood Gas Hemoglobin 14.3 G/DL Oxygen Delivery Device Non-Rebreathing Mask Blood Gas Liter Flow 15 L/M Blood Gas Inspired Oxygen 100 % White Blood Count 17.7 TH/MM3 Red Blood Count 5.43 MIL/MM3 Hemoglobin 16.0 GM/DL Hematocrit 51.1 % Mean Corpuscular Volume 94.1 FL Mean Corpuscular Hemoglobin 29.5 PG Mean Corpuscular Hemoglobin Concent 31.3 % Red Cell Distribution Width 14.1 % Platelet Count 220 TH/MM3 Mean Platelet Volume 10.3 FL Neutrophils (%) (Auto) 81.5 % Lymphocytes (%) (Auto) 5.9 % Monocytes (%) (Auto) 12.2 % Eosinophils (%) (Auto) 0.0 % Basophils (%) (Auto) 0.4 % Neutrophils # (Auto) 14.4 TH/MM3 Lymphocytes # (Auto) 1.0 TH/MM3 Monocytes # (Auto) 2.2 TH/MM3 Eosinophils # (Auto) 0.0 TH/MM3 Basophils # (Auto) 0.1 TH/MM3 CBC Comment AUTO DIFF Differential Comment AUTO DIFF CONFIRMED Urine Color YELLOW Urine Turbidity CLEAR Urine pH 5.0 Urine Specific [place] 1.017 Urine Protein TRACE mg/dL Urine Glucose (UA) 1000 mg/dL Urine Ketones 40 mg/dL Urine Occult Blood NEG Urine Nitrite NEG Urine Bilirubin NEG Urine Urobilinogen LESS THAN 2.0 MG/DL Urine Leukocyte Esterase NEG Urine WBC LESS THAN 1 /hpf Urine Squamous Epithelial Cells <1 /hpf Urine Bacteria RARE /hpf Urine Hyaline Casts 1 /lpf Microscopic Urinalysis Comment CULT NOT INDICATED Blood Urea Nitrogen 68 MG/DL Creatinine 5.03 MG/DL Random Glucose 1116 MG/DL 909 MG/DL Total Protein 8.8 GM/DL Albumin 3.4 GM/DL Calcium Level 9.0 MG/DL Alkaline Phosphatase 72 U/L Aspartate Amino Transf (AST/SGOT) 54 U/L Alanine Aminotransferase (ALT/SGPT) 41 U/L Total Bilirubin 1.1 MG/DL Sodium Level 130 MEQ/L Potassium Level 7.9 MEQ/L Chloride Level 96 MEQ/L Carbon Dioxide Level 8.8 MEQ/L Anion Gap 25 MEQ/L Estimat Glomerular Filtration Rate 12 ML/MIN Lactic Acid Level 5.5 mmol/L Total Creatine Kinase 283 U/L Creatine Kinase MB 1.9 NG/ML Troponin I 0.08 NG/ML Lipase 3507 U/L Ethyl Alcohol Level LESS THAN 3 MG/DL B-Hydroxybutyrate 11.40 MMOL/L Nasal Screen MRSA (PCR) MRSA NOT DETECTED Test 01/05/17 18:15 01/05/17 19:30 01/05/17 21:15 01/06/17 02:09 Urine Occult Blood LARGE Blood Urea Nitrogen 66 MG/DL 59 MG/DL Creatinine 4.22 MG/DL 3.51 MG/DL Random Glucose 619 MG/DL 400 MG/DL Calcium Level 8.9 MG/DL 8.3 MG/DL Phosphorus Level 3.0 MG/DL 0.7 MG/DL Magnesium Level 2.6 MG/DL 2.4 MG/DL Sodium Level 147 MEQ/L 154 MEQ/L Potassium Level 3.7 MEQ/L 4.1 MEQ/L Chloride Level 115 MEQ/L 122 MEQ/L Carbon Dioxide Level 14.5 MEQ/L 20.7 MEQ/L Anion Gap 18 MEQ/L 11 MEQ/L Estimat Glomerular Filtration Rate 18 ML/MIN 23 ML/MIN Lactic Acid Level 3.0 mmol/L Troponin I 0.17 NG/ML 0.37 NG/ML Blood Gas Puncture Site RT RADIAL Blood Gas Patient Temperature 98.6 Blood Gas HCO3 16 mmol/L Blood Gas Base Excess -8.9 mmol/L Blood Gas Oxygen Saturation 94 % Arterial Blood pH 7.33 Arterial Blood Partial Pressure CO2 31 mmHg Arterial Blood Partial Pressure O2 96 mmHg Arterial Blood Oxygen Content 20.7 Vol % Arterial Blood Carboxyhemoglobin 1.1 % Arterial Blood Methemoglobin 1.6 % Blood Gas Hemoglobin 15.6 G/DL Oxygen Delivery Device ROOM AIR Blood Gas Inspired Oxygen 21 % B-Hydroxybutyrate 0.85 MMOL/L Test 01/06/17 04:05 01/06/17 07:26 White Blood Count 16.5 TH/MM3 Red Blood Count 5.13 MIL/MM3 Hemoglobin 14.5 GM/DL Hematocrit 42.6 % Mean Corpuscular Volume 83.0 FL Mean Corpuscular Hemoglobin 28.2 PG Mean Corpuscular Hemoglobin Concent 34.0 % Red Cell Distribution Width 12.9 % Platelet Count 175 TH/MM3 Mean Platelet Volume 8.9 FL Neutrophils (%) (Auto) 90.7 % Lymphocytes (%) (Auto) 2.0 % Monocytes (%) (Auto) 7.2 % Eosinophils (%) (Auto) 0.0 % Basophils (%) (Auto) 0.1 % Neutrophils # (Auto) 15.0 TH/MM3 Lymphocytes # (Auto) 0.3 TH/MM3 Monocytes # (Auto) 1.2 TH/MM3 Eosinophils # (Auto) 0.0 TH/MM3 Basophils # (Auto) 0.0 TH/MM3 CBC Comment DIFF FINAL Differential Comment Blood Urea Nitrogen 58 MG/DL 54 MG/DL Creatinine 3.07 MG/DL 2.96 MG/DL Random Glucose 371 MG/DL 205 MG/DL Total Protein 6.8 GM/DL Albumin 2.7 GM/DL Calcium Level 8.5 MG/DL 8.3 MG/DL Alkaline Phosphatase 57 U/L Aspartate Amino Transf (AST/SGOT) 260 U/L Alanine Aminotransferase (ALT/SGPT) 77 U/L Total Bilirubin 0.8 MG/DL Sodium Level 153 MEQ/L 160 MEQ/L Potassium Level 4.0 MEQ/L 3.6 MEQ/L Chloride Level 124 MEQ/L 129 MEQ/L Carbon Dioxide Level 18.8 MEQ/L 18.5 MEQ/L Anion Gap 10 MEQ/L 13 MEQ/L Estimat Glomerular Filtration Rate 26 ML/MIN 27 ML/MIN Lactic Acid Level 1.8 mmol/L Lipase 2090 U/L Phosphorus Level 0.9 MG/DL Magnesium Level 2.2 MG/DL Troponin I 0.44 NG/ML Imaging Last Impressions Chest X-Ray 01/05/17 1341 Signed Impressions: Service Date/Time: Thursday, January 05, 2017 13:52 - CONCLUSION: Normal examination. Henrik Mclaughlin MD Head CT 01/05/17 0000 Signed Impressions: Service Date/Time: Thursday, January 05, 2017 16:32 - CONCLUSION: Hypodensities I suspect are chronic lacunar infarcts. No definite acute hemorrhage or edema. Henrik Mclaughlin MD Abdomen/Pelvis CT 01/05/17 0000 Signed Impressions: Service Date/Time: Thursday, January 05, 2017 16:38 - CONCLUSION: 1. No acute abnormality observed. In particular, no appreciable inflammatory process involving the pancreas. The pancreas is somewhat blurred by breathing motion artifact limiting its evaluation. 2. Colonic diverticulosis without acute inflammation. Gama Rivers Jr., MD Objective Remarks GENERAL: Patient is lying in bed in NAD. SKIN: Warm and dry. HEAD: Normocephalic. EYES: No scleral icterus. No injection or drainage. NECK: Supple, trachea midline. No JVD or lymphadenopathy. CARDIOVASCULAR: Regular rate and rhythm without murmurs, gallops, or rubs. RESPIRATORY: Breath sounds equal bilaterally. No accessory muscle use. GASTROINTESTINAL: Abdomen soft, non-tender, nondistended. MUSCULOSKELETAL: No cyanosis, or edema. Neuro: Awake, A/P Assessment and Plan 1. Diabetic ketoacidosis. 2. Acute kidney injury. 3. Anion gap metabolic acidosis. 4. s/p Hyperkalemia 5. Hypernatremia. 6. Lactic acidemia- resolved 7. Altered mental status likely secondary to metabolic issues 8. Leukocytosis which could be stress related. 9. Elevated lipase level next elevated AST. 10. Mild elevation troponin which could be secondary to renal failure, DKA. 11. Hypertension 12. History of type 2 diabetes mellitus. 13. Peripheral vascular disease. 14. History of gastric stromal tumor Plan Neuro: Monitor neuro status closely and avoid any sedatives. CT brain -no acute intracranial process. Check ammonia level Pulm: Continue with oxygen maintain sats above 92%. Bronchodilators CV: Monitor HR and BP and maintain MAP> mmHg. Lactic acid cleared 1.8 from 5.5 on arrival Check 2d echo, give ASA 325mg x1, Cards eval for elevated trop. Check EKG : Monitor renal function Is and Os and avoid nephrotoxins, replacement as needed. Change IVF D5W@100ml/hr, Renal is following- Dr. Howard. Renal function is improving with Cr: 2.96 from 5.03 on arrival. GI: Speech eval, diet per speech. Monitor LFT's, check US liver and Hepatitis profile. CT abdomen/pelvis: No acute abnormality observed. Colonic diverticulosis without acute inflammation. On Pepcid 10 mg IV q. 12 for GI prophylaxis. Monitor Lipase ( trending down) Heme: Monitor CBC Endo: AG closed. Will transition to SSI and Levemir insulin. ID: Monitor for signs of infections( fever and WBC) no signs of infectious process. Follow up on blood cultures- NGTD, CXR negative. . GI prophylaxis with Pepcid and DVT prophylaxis with SCDs./Heparin SQ Level 3 Boy Pate MD Jan 06, 2017 10:08
[2017-01-06] MEDS ORDERED: GLUCAGON 1 MG/ML VIAL OTHER PRN (10:30)
[2017-01-06] MEDS ORDERED: DEXTROSE 50% IN WATER 50 ML VIAL(D50) IV PUSH PRN (10:30)
[2017-01-06] MEDS ORDERED: ASPIRIN 325 MG TAB PO ONE (11:00)
[2017-01-06] MEDS: HEPARIN SODIUM - SQ 10,000 UNITS/ML VIAL SQ SCH ×2 (11:00→20:29)
--- NOTE | 2017-01-06 11:21 | HHI.NPPN ---
Subjective History of Present Illness Patient 48-year-old with DKA and acute renal failure Objective Data Data Vital Signs Date Time Temp Pulse Resp B/P (MAP) Pulse Ox O2 Delivery O2 Flow Rate FiO2 01/06/17 10:00 112 01/06/17 09:00 114 23 138/65 (89) 99 01/06/17 08:00 98.6 113 22 146/70 (95) 99 01/06/17 08:00 113 01/06/17 06:00 116 01/06/17 04:00 98.5 117 22 145/73 (97) 100 01/06/17 04:00 117 01/06/17 02:00 117 01/06/17 00:01 98.1 104 19 172/74 (106) 100 01/06/17 00:00 105 01/05/17 22:00 102 01/05/17 20:00 98.5 97 18 164/77 (106) 100 01/05/17 20:00 97 01/05/17 18:00 98.8 96 18 147/74 (98) 100 01/05/17 17:25 01/05/17 16:40 108 20 163/88 (113) 100 Nasal Cannula 3.00 01/05/17 15:33 89 18 159/79 (105) 100 Nasal Cannula 3.00 01/05/17 15:12 86 19 164/75 (104) 100 Nasal Cannula 3.00 01/05/17 13:30 86 22 124/62 (82) 100 -: 01/06/17 0405 01/06/17 0726 Microbiology 01/05/17 Aerobic Blood Culture - Preliminary, Resulted NO GROWTH IN 1 DAY 01/05/17 Anaerobic Blood Culture - Preliminary, Resulted NO GROWTH IN 1 DAY Physical Exam General Appearance: Well Developed, Well Nourished Neck Neck Exam: Neck Supple Pulmonary Resp Exam: Clear Bilaterally, Breath Sounds Equal Cardiology CV Exam: Regular, Normal Sinus Rhythm Gastrointestinal/Abdomen GI Exam: Soft, Non-Tender, Bowel Sounds Present Extremeties Extremities Exam: No Edema Assessment/Plan Problem List: (1) Acute renal failure ICD Codes: N17.9 - Acute kidney failure, unspecified Status: Acute Plan: This is resolving with IV hydration and insulin Sodium went up to 160 IV fluids changed to D5W at 100 cc an hour Creatinine declining 2.9 Potassium is normal Follow BMP (2) Hyperkalemia ICD Codes: E87.5 - Hyperkalemia Status: Resolved Plan: With treatment of DKA (3) Diabetic ketoacidosis ICD Codes: E13.10 - Other specified diabetes mellitus with ketoacidosis without coma Status: Acute Plan: Improved on insulin Levemir and sliding scale regular insulin Saúl Howard MD Jan 06, 2017 11:21
--- NOTE | 2017-01-06 11:42 | RADRPT ---
EXAM DATE/TIME: 01/06/2017 10:40 [place] COMPARISON: No previous studies available for comparison. INDICATIONS : Increased labs. MEDICAL HISTORY : Hypertension. Renal failure, acute. Diabetes. SURGICAL HISTORY : None. ENCOUNTER: Initial ACUITY: 1 day PAIN SCORE: 0/10 LOCATION: Bilateral upper quadrant MEASUREMENTS: LIVER: 13.9 cm length COMMON DUCT: 5 mm RIGHT KIDNEY: 9.3 x 4.3 x 5.8 cm SPLEEN: 9.5 cm length FINDINGS: Pancreas unremarkable. Liver mildly echogenic. No gallstones. Questionable adenomyomatosis of the gal lbladder wall. No biliary ductal dilatation. Right kidney unremarkable except for small cyst upper po le. Small accessory splenule. CONCLUSION: 1. No acute findings. No free fluid. No gallstones or right-sided hydronephrosis. Mild fatty liver. Michael Rhoades MD on January 06, 2017 at 11:36 Board Certified Radiologist. This report was verified electronically.
[2017-01-06] MEDS: INSULIN NovoLIN REGULAR SUPPLEMENTAL SCALE SQ SCH ×4 (12:00→23:42)
[2017-01-06 13:38] LABS: BICARBONATE 18.6 MEQ/L (21.0-32.0); POTASSIUM 3.6 MEQ/L (3.5-5.1)
[2017-01-06 13:39] LABS: BETA-HYDROXYBUTYRATE 0.86 MMOL/L (0.00-0.39)
[2017-01-06] MEDS: INSULIN DETEMIR 100 UNITS/ML VIAL SQ SCH ×2 (14:00→20:29)
--- NOTE | 2017-01-06 14:20 | EKG ---
Date Performed: 01/06/2017 Time Performed: 10:41:45 PTAGE: 48 years EKG: SINUS TACHYCARDIA LOW QRS VOLTAGE IN EXTREMITY LEADS LEFT ANTERIOR FASCICULAR BLOCK ANTERIO R MYOCARDIAL INFARCTION , PROBABLY RECENT INFERIOR MYOCARDIAL INFARCTION , PROBABLY OLD PREVIOUS TRACING : 01/05/2017 13.37 Compared to prior tracing no significant change DOCTOR: Walter Grant Interpretating Date/Time 01/06/2017 14:18:29
--- NOTE | 2017-01-06 15:41 | MB ---
cc: WALTER WALKER DO DATE OF CONSULTATION: 01/06/2017. REASON FOR CONSULTATION: Elevated troponins. HISTORY OF PRESENT ILLNESS: Tee Longo is a 66-year-old male who presented to the [facility] Emergency Room on January 05, 2017 due to altered mental status. According to the patient's sister, she saw him on December 31 and he was perfectly fine. She let him know that she was going to have Thanksgiving Dinner and so she attempted to call him on the , but was unable to get a hold of him. When she could not get a hold of him on the , she attempted to go to his house but could not get in and so she called the fire department to check on him. When they arrived, they saw the patient sitting in the bathroom unresponsive. The patient was unable to give a history. On arrival to the emergency room, an EKG was done and there was concern for significant S-T-T wave changes, possibly due to ischemia. Troponins have been checked and they are just mildly elevated. He does have significant derangement of his electrolytes as well as some acute kidney injury. On seeing him, he is currently hemodynamically stable. He is extremely lethargic but arouses to sternal rub. Difficult to have him answer any questions and he still appears somewhat out of it. PAST MEDICAL HISTORY: 1. Hypertension. 2. Peripheral vascular disease. 3. Diabetes mellitus type 2. 4. Gastric stromal tumor. PAST SURGICAL HISTORY: 1. Partial gastrectomy. 2. Previous mechanical thrombectomy and balloon angioplasty for ischemia of the left lower extremity with stent placement. ALLERGIES: NO KNOWN DRUG ALLERGIES. MEDICATIONS: Still unsure at this time, although it is believed that the patient was on insulin but otherwise unknown. SOCIAL HISTORY: The patient previously smoked tobacco. He is a nondrinker. FAMILY HISTORY: Denies premature coronary artery disease or sudden cardiac within the family. PHYSICAL EXAMINATION: VITAL SIGNS: Temperature 98.6, heart rate 110, blood pressure 138/65, respirations 20, pulse ox 99% on 3 liters. GENERAL: In general, the patient appears overall lethargic but arousable to sternal rub. No acute distress. HEAD, EYES, EARS, NOSE, THROAT: The extraocular muscles are intact. Mucous membranes moist. NECK: The neck is supple. No JVD at 45 degrees. No carotid bruits heard bilaterally. Carotid upstroke is brisk in nature. HEART: Heart is mildly tachycardiac. Positive first and second heart sounds with no murmurs, gallops or rubs. LUNGS: Clear to auscultation bilaterally. No wheezes, rales or rhonchi. ABDOMEN: The abdomen is soft, nontender and nondistended. No organomegaly. EXTREMITIES: Show no clubbing, cyanosis or edema. Femoral and distal pulses intact bilaterally. NEUROLOGIC: No focal deficits noted, although the patient is overall lethargic and difficult to engage during the examination. SKIN: Warm, dry and intact. OSTEOPATHIC: Osteopathically, no kyphoscoliosis, lordosis or paraspinal tender points. LABORATORY FINDINGS: Hemoglobin 14.5, hematocrit 42.6, platelets 175,000. Potassium 3.6, BUN 54, creatinine 2.96, lactic acid 1.8 down from 5.5. Troponin 0.44. EKGS: Electrocardiogram (January 06, 2017 at 10:41 a.m.): Sinus tachycardia, low voltage, left anterior fascicular block, age undetermined, anterior infarct, possible old inferior infarct. Electrocardiogram (January 05, 2017 at 1337): Sinus rhythm, possible old inferior infarct, age undetermined anterolateral infarction versus recent [place]. IMPRESSION: 1. NSTEMI. 2. Diabetic ketoacidosis with severe lactic acidosis and a bicarbonate of 7 on arrival. 3. Lactic acidosis secondary to diabetic ketoacidosis. 4. Hypernatremia. 5. Acute kidney injury. 6. Abnormal EKG. RECOMMENDATIONS: 1. Mr. Longo presented with acute mental status change most likely due to his overall diabetic ketoacidosis. 2. He was found to have a mildly elevated troponin and this may be type 2 in nature due to underlying illness with lactic acidosis secondary to his diabetic ketoacidosis as well as electrolyte imbalances. 3. My overall concern is with his EKG showing either a recent myocardial infarction or significant ischemia. Because of this, I would opt for cardiac catheterization for an ischemic evaluation. At this time, this is not possible with his overall creatinine and acute kidney injury as well as his overall lethargy. 4. We will continue to follow him and when more stable, will discuss further with him possible ischemic evaluation with the thought towards cardiac catheterization. 5. We will check a 2-D echocardiogram to look at his overall left ventricular function, cardiac structure and possible valvulopathies. 6. We will plan on placing him on aspirin therapy. Further recommendations will be made based on the hospital course. Thank you for allowing me to see Tee Longo. If there are any questions, please do not hesitate to call. Walter Walker DO VGP/JCC /1:22 PM /3:26 PM
[2017-01-06] MEDS: DEXTROSE 5% IN WATE 1000ML INJ 1,000 ML IV SCH ×2 (15:49→20:00)
--- NOTE | 2017-01-06 17:50 | EKG ---
Date Performed: 01/05/2017 Time Performed: 13:37:55 PTAGE: 48 years EKG: Sinus rhythm BORDERLINE RIGHT AXIS DEVIATION INFERIOR MYOCARDIAL INFARCTION ANTEROLATERAL MYOCARDIAL INFARCTION, POSSIBLE RECENT NO PREVIOUS TRACING DOCTOR: Walter Grant Interpretating Date/Time 01/06/2017 17:49:19
[2017-01-06] MEDS: METOPROLOL TARTRATE 5 MG/5 ML VIAL IV PUSH SCH ×3 (23:41→23:57)
[2017-01-07] VITALS (18 sets, daily range): BP systolic 131–175; BP diastolic 66–91; PULSE 90–125; RESP 19–36; TEMP 97.8–99.1; O2SAT 87–100
[2017-01-07] MEDS: RESP: ALBUTEROL 2.5 MG/IPRATROPIUM 0.5 MG NEB (SCH) INH ×4 (03:48→20:50)
[2017-01-07] MEDS: CHLORHEXIDINE GLUCONATE 2 % 1 PACK (2 CLOTHS) TOP SCH (04:00)
[2017-01-07] MEDS: INSULIN NovoLIN REGULAR SUPPLEMENTAL SCALE SQ SCH ×5 (04:00→20:00)
[2017-01-07] MEDS: DEXTROSE 5% IN WATE 1000ML INJ 1,000 ML IV SCH (04:47)
[2017-01-07 08:11] LABS: HEMATOCRIT 41.3 % (39.0-51.0); MEAN CELL VOLUME 83.7 FL (80.0-100.0); MEAN CORPUSCULAR HEMOGLOBIN 28.7 PG (27.0-34.0); MEAN CORPUSCULAR HGB CONC 34.3 % (32.0-36.0); PLATELET COUNT 143 TH/MM3 (150-450); RED BLOOD COUNT 4.94 MIL/MM3 (4.50-5.90); RED CELL DISTRIBUTION WIDTH 13.5 % (11.6-17.2); REVIEW FLAG FINAL; WHITE BLOOD COUNT 16.3 TH/MM3 (4.0-11.0)
[2017-01-07 08:29] LABS: ALKALINE PHOSPHATASE 74 U/L (45-117); ALT (GPT) 123 U/L (12-78); ANION GAP 12 MEQ/L (5-15); AST (GOT) 404 U/L (15-37); BICARBONATE 19.3 MEQ/L (21.0-32.0); BLOOD UREA NITROGEN 37 MG/DL (7-18); CHLORIDE 119 MEQ/L (98-107); GLOMERULAR FILTRATION RATE 44 ML/MIN (>89); POTASSIUM 3.6 MEQ/L (3.5-5.1); SODIUM (NA) 150 MEQ/L (136-145); TOTAL BILIRUBIN ADULT 0.7 MG/DL (0.2-1.0)
[2017-01-07] MEDS: ASPIRIN 81 MG CHEW TAB CHEW SCH (08:53)
[2017-01-07] MEDS: DOCUSATE SODIUM 50 MG/SENNA 8.6 MG TAB PO SCH ×2 (08:53→20:04)
[2017-01-07] MEDS: INSULIN DETEMIR 100 UNITS/ML VIAL SQ SCH (08:53)
[2017-01-07] MEDS: HEPARIN SODIUM - SQ 10,000 UNITS/ML VIAL SQ SCH ×2 (08:53→20:06)
--- NOTE | 2017-01-07 09:36 | HHI.CCPN ---
Subjective Remarks/Hospital Course The patient is a 66-year-old male with past medical history of hypertension, peripheral vascular disease, type 2 diabetes mellitus who presented to [facility] emergency department for altered mental status. According to the patient's sister the last time she saw him was five days ago, she called the fire department today to check on him and when they arrived they saw the patient sitting in the bathroom not sure for how long and was unresponsive. The patient was altered and unable to give any history. His blood sugar at the scene was too high to register the and they started IV fluids and transferred into the emergency department. In the emergency room the patient was found to be in DKA and renal failure. His BMP showed severe hyperglycemia with a blood sugar of 1116 with severe metabolic acidosis and acute renal failure. His creatinine 5.0 with a BUN 68 in addition the patient was hyperkalemic with a potassium level 7.9 and a bicarb of 8.8. ABG showed severe metabolic acidosis with a pH of 7.12, CO2 21, pAO2 322, bicarb seven and saturation of 97%. Other significant labs on arrival showed lactic acidemia with elevated lactic acid level of 5.5 and elevated lipase level of 3507. His beta-hydroxybutyrate was measured at 11.4. Most of the history was obtained from the review of reviewing medical records and from my discussion with a sister who was present at the bedside. A chest x-ray In the emergency department showed no evidence of any acute cardiopulmonary disease. When seen in the emergency room the patient slowly responded to some the questions that was asked, He denies any abdominal pain, nausea or vomiting. In the emergency department was given 3 liters of crystalloids along with insulin 7.5 and units IV push and 1 gram of calcium chloride. He was placed on insulin drip in addition to amps of sodium bicarb was ordered. 01/06 Patient was on insulin drip 18u/hr overnight AG closed (13)this morning. Lactic acid resolved 1.1 from 5.5 on arrival. 01/07 No events overnight. Off insulin drip. Afebrile. Renal function is improving with Cr: 1.97 today, Na 150 from 155. Objective Vital Signs Date Time Temp Pulse Resp B/P (MAP) Pulse Ox O2 Delivery O2 Flow Rate FiO2 01/07/17 06:00 118 01/07/17 04:00 98.5 23 162/81 (108) 100 01/05/17 16:40 Nasal Cannula 3.00 Intake and Output 01/07/17 01/07/17 01/08/17 08:00 16:00 00:00 Intake Total 1379 ml Output Total 1350 ml Balance 29 ml Result Diagram: 01/07/17 0750 01/07/17 0750 Other Results Laboratory Tests Test 01/06/17 11:08 01/06/17 13:15 01/07/17 05:07 01/07/17 07:50 Ammonia 17 MCMOL/L Blood Urea Nitrogen 47 MG/DL 37 MG/DL Creatinine 2.35 MG/DL 1.97 MG/DL Random Glucose 105 MG/DL 420 MG/DL Calcium Level 8.2 MG/DL 8.2 MG/DL Phosphorus Level 1.4 MG/DL Magnesium Level 2.0 MG/DL Sodium Level 155 MEQ/L 150 MEQ/L Potassium Level 3.6 MEQ/L 3.6 MEQ/L Chloride Level 125 MEQ/L 119 MEQ/L Carbon Dioxide Level 18.6 MEQ/L 19.3 MEQ/L Anion Gap 11 MEQ/L 12 MEQ/L Estimat Glomerular Filtration Rate 36 ML/MIN 44 ML/MIN B-Hydroxybutyrate 0.86 MMOL/L Lipase 130 U/L White Blood Count 16.3 TH/MM3 Red Blood Count 4.94 MIL/MM3 Hemoglobin 14.2 GM/DL Hematocrit 41.3 % Mean Corpuscular Volume 83.7 FL Mean Corpuscular Hemoglobin 28.7 PG Mean Corpuscular Hemoglobin Concent 34.3 % Red Cell Distribution Width 13.5 % Platelet Count 143 TH/MM3 Mean Platelet Volume 9.4 FL Total Protein 6.6 GM/DL Albumin 2.5 GM/DL Alkaline Phosphatase 74 U/L Aspartate Amino Transf (AST/SGOT) 404 U/L Alanine Aminotransferase (ALT/SGPT) 123 U/L Total Bilirubin 0.7 MG/DL Imaging Last Impressions Liver Ultrasound 01/06/17 0000 Signed Impressions: Service Date/Time: Friday, January 06, 2017 10:40 - CONCLUSION: 1. No acute findings. No free fluid. No gallstones or right-sided hydronephrosis. Mild fatty liver. Michael Rhoades MD Chest X-Ray 01/05/17 1341 Signed Impressions: Service Date/Time: Thursday, January 05, 2017 13:52 - CONCLUSION: Normal examination. Henrik Mclaughlin MD Head CT 01/05/17 0000 Signed Impressions: Service Date/Time: Thursday, January 05, 2017 16:32 - CONCLUSION: Hypodensities I suspect are chronic lacunar infarcts. No definite acute hemorrhage or edema. Henrik Mclaughlin MD Abdomen/Pelvis CT 01/05/17 0000 Signed Impressions: Service Date/Time: Thursday, January 05, 2017 16:38 - CONCLUSION: 1. No acute abnormality observed. In particular, no appreciable inflammatory process involving the pancreas. The pancreas is somewhat blurred by breathing motion artifact limiting its evaluation. 2. Colonic diverticulosis without acute inflammation. Gama Rivers Jr., MD Objective Remarks GENERAL: Patient is lying in bed in NAD. SKIN: Warm and dry. HEAD: Normocephalic. EYES: No scleral icterus. No injection or drainage. NECK: Supple, trachea midline. No JVD or lymphadenopathy. CARDIOVASCULAR: Tachycardic without murmurs, gallops, or rubs. RESPIRATORY: Breath sounds equal bilaterally. No accessory muscle use. GASTROINTESTINAL: Abdomen soft, non-tender, nondistended. MUSCULOSKELETAL: No cyanosis, or edema. Neuro: Awake, A/P Assessment and Plan 1. Diabetic ketoacidosis. 2. Acute kidney injury. 3. Anion gap metabolic acidosis. 4. s/p Hyperkalemia 5. Hypernatremia. 6. Lactic acidemia- resolved 7. Altered mental status likely secondary to metabolic issues 8. Leukocytosis which could be stress related. 9. Elevated lipase level next elevated AST. 10. Mild elevation troponin which could be secondary to renal failure, DKA. 11. Hypertension 12. History of type 2 diabetes mellitus. 13. Peripheral vascular disease. 14. History of gastric stromal tumor Plan Neuro: Monitor neuro status closely and avoid any sedatives. CT brain -no acute intracranial process. Ammonia level: 17 Check MRI eva Pulm: Continue with oxygen maintain sats above 92%. Bronchodilators CV: Monitor HR and BP and maintain MAP> mmHg. Lactic acid cleared 1.8 from 5.5 on arrival Cards is following- Dr. Grant, for 2De cho. Place on Lopressor 50mg Q12 and ASA 81mg daily. Will likely need cardiac cath once renal function recovers. : Monitor renal function Is and Os and avoid nephrotoxins, replacement as needed. Change IVF 1/2NS@75ml/hr, Renal is following- Dr. Howard. Renal function is improving with Cr: 1.97 today. Add Free water 250ml Q8 monitor sodium level. GI: NPO per speech. Monitor LFT's, continue with tube feeeds via NGT ( change to Glucerna 1.5 with goal rate 45ml/hr) US Liver: No acute findings. Follow up on Hepatitis profile. CT abdomen/pelvis: No acute abnormality observed. Colonic diverticulosis without acute inflammation. On Pepcid 10 mg IV q. 12 for GI prophylaxis. Monitor Lipase (now within normal) Heme: Monitor CBC Endo: On medium SSI, increase Levemir 12 u BID ID: Monitor for signs of infections( fever and WBC) no signs of infectious process. Follow up on blood cultures- NGTD, CXR negative. . GI prophylaxis with Pepcid and DVT prophylaxis with SCDs./Heparin SQ Level 3 Boy Pate MD Jan 07, 2017 09:36
[2017-01-07] MEDS: METOPROLOL TARTRATE 50 MG TAB PO SCH ×2 (09:56→20:04)
[2017-01-07] MEDS: SODIUM CHLOR 0.45% 1000 ML INJ 1,000 ML IV SCH (09:56)
[2017-01-07] MEDS: FREE WATER G-TUBE SCH ×3 (09:56→20:04)
[2017-01-07] MEDS ORDERED: SODIUM PHOSPHATE INJ 30 MMOL in SODIUM CHLOR 0.9% 250 ML INJ 240 ML IV PRN (10:45)
[2017-01-07] MEDS ORDERED: POTASSIUM CHLOR 40 MEQ PREMIX 100 ML IV PRN ×2 (10:45)
[2017-01-07] MEDS ORDERED: MAGNESIUM SULFATE INJ 4 GM in SODIUM CHLORIDE 0.9% INJ 92 ML IV PRN (10:45)
[2017-01-07] MEDS ORDERED: POTASSIUM PHOSPHATE MONOBASIC 500 MG TAB PO/TUBE PRN (10:45)
[2017-01-07] MEDS ORDERED: MAGNESIUM OXIDE 400 MG TAB PO PRN (10:45)
[2017-01-07] MEDS ORDERED: POTASSIUM CHLORIDE 25 MEQ EFFERVESCENT TAB PO PRN (10:45)
[2017-01-07] MEDS ORDERED: POTASSIUM CHLOR 20 MEQ PREMIX 100 ML IV PRN (10:45)
[2017-01-07] MEDS ORDERED: MAGNESIUM SULFATE INJ 2 GM in SODIUM CHLORIDE 0.9% INJ 96 ML IV PRN (10:45)
[2017-01-07] MEDS ORDERED: SODIUM CHLORIDE 0.9% IV ONE (12:00)
[2017-01-07] MEDS ORDERED: POTASSIUM PHOSPHATE IV ONE (12:00)
--- NOTE | 2017-01-07 12:11 | HHI.NPPN ---
Subjective History of Present Illness Patient 48-year-old with DKA and acute renal failure Objective Data Data 01/07/17 01/08/17 19:00 07:00 Intake Total 368 ml Balance 368 ml Intake IV Total 368 ml Vital Signs Date Time Temp Pulse Resp B/P (MAP) Pulse Ox O2 Delivery O2 Flow Rate FiO2 01/07/17 10:00 125 22 175/87 (116) 100 01/07/17 10:00 125 01/07/17 09:00 122 23 168/88 (114) 99 01/07/17 08:00 124 01/07/17 08:00 98.3 124 23 160/77 (104) 100 01/07/17 07:00 114 21 138/74 (95) 99 01/07/17 06:00 118 01/07/17 04:00 98.5 115 23 162/81 (108) 100 01/07/17 04:00 115 01/07/17 02:00 108 01/07/17 00:00 99.1 102 22 148/72 (97) 98 01/07/17 00:00 102 01/06/17 22:00 122 01/06/17 20:00 98.7 126 25 161/78 (105) 99 01/06/17 18:00 98.9 119 24 155/76 (102) 99 01/06/17 18:00 119 01/06/17 16:00 110 01/06/17 14:00 110 -: 01/07/17 0750 01/07/17 0750 Microbiology 01/07/17 Aerobic Blood Culture, Received Pending 01/07/17 Anaerobic Blood Culture, Received Pending Physical Exam General Appearance: Well Developed, Well Nourished Neck Neck Exam: Neck Supple Pulmonary Resp Exam: Clear Bilaterally, Breath Sounds Equal Cardiology CV Exam: Regular, Normal Sinus Rhythm Gastrointestinal/Abdomen GI Exam: Soft, Non-Tender, Bowel Sounds Present Extremeties Extremities Exam: No Edema Assessment/Plan Problem List: (1) Acute renal failure ICD Codes: N17.9 - Acute kidney failure, unspecified Status: Acute Plan: This is resolving with IV hydration and insulin Sodium better 150 IV fluids Creatinine declining 1.9 Potassium is normal Follow BMP BG high (2) Hyperkalemia ICD Codes: E87.5 - Hyperkalemia Status: Resolved Plan: With treatment of DKA (3) Diabetic ketoacidosis ICD Codes: E13.10 - Other specified diabetes mellitus with ketoacidosis without coma Status: Acute Plan: Improved on insulin Levemir and sliding scale regular insulin Saúl Howard MD Jan 07, 2017 12:11
--- NOTE | 2017-01-07 13:22 | PD.CARD.PN ---
Subjective Subjective Remarks No events overnight More awake today but slow to answer Objective Medications Current Medications Medications (Trade) Dose Ordered Sig/Nereida Route Start Time Stop Time Status Last Admin (NS Flush) 2 ml UNSCH PRN IVF 01/05/17 13:45 (Duoneb Neb) 1 ampule Q6HR NEB INH 01/05/17 16:00 01/07/17 03:48 (Duoneb Neb) 1 ampule Q2HR NEB PRN INH 01/05/17 15:30 Miscellaneous Information 1 Q361D XX 01/05/17 15:30 (Chlorhexidine 2% Cloth) 3 pack Taper DAILY@04 TOP 01/06/17 04:00 01/02/18 03:59 01/07/17 04:00 (Chlorhexidine 2% Cloth) 3 pack UNSCH PRN TOP 01/05/17 15:30 (Giovana-Colace) 1 tab BID PO 01/05/17 21:00 01/07/17 08:53 (Milk Of Magnesia Liq) 30 ml Q12H PRN PO 01/05/17 15:30 (Senokot) 17.2 mg Q12H PRN PO 01/05/17 15:30 (Dulcolax Supp) 10 mg DAILY PRN RECTAL 01/05/17 15:30 (Lactulose Liq) 30 ml DAILY PRN PO 01/05/17 15:30 (Apresoline Inj) 20 mg Q4H PRN IV PUSH 01/06/17 01:30 01/06/17 23:11 (Heparin Inj) 5,000 units Q12HR SQ 01/06/17 11:00 01/07/17 08:53 (D50w (Vial) Inj) 50 ml UNSCH PRN IV PUSH 01/06/17 10:30 (Glucagon Inj) 1 mg UNSCH PRN OTHER 01/06/17 10:30 (NovoLIN R SUPPLEMENTAL SCALE) 1 Q4HR SQ 01/06/17 12:00 01/07/17 11:46 (Aspirin Chew) 81 mg DAILY CHEW 01/07/17 09:00 01/07/17 08:53 (Levemir Inj) 12 units Q12HR SQ 01/07/17 21:00 Sodium Chloride 1,000 ml @ 75 mls/hr [id number] IV 01/07/17 09:30 01/07/17 09:56 (Lopressor) 50 mg Q12HR PO 01/07/17 10:00 01/07/17 09:56 (Free Water) 250 ml Q8HR G-TUBE 01/07/17 10:00 01/07/17 09:56 Potassium Chloride 100 ml @ 50 mls/hr Q2H PRN IV 01/07/17 10:45 Potassium Chloride 100 ml @ 50 mls/hr Q2H PRN IV 01/07/17 10:45 (K-Lyte Cl Eff) 50 meq UNSCH PRN PO 01/07/17 10:45 Potassium Chloride 100 ml @ 25 mls/hr UNSCH PRN IV 01/07/17 10:45 Potassium Chloride 100 ml @ 50 mls/hr Q2H PRN IV 01/07/17 10:45 Magnesium Sulfate 4 gm/Sodium Chloride 100 ml @ 50 mls/hr UNSCH PRN IV 01/07/17 10:45 (Mag-Ox) 800 mg UNSCH PRN PO 01/07/17 10:45 Magnesium Sulfate 2 gm/Sodium Chloride 100 ml @ 50 mls/hr UNSCH PRN IV 01/07/17 10:45 (K-Phos) 2,000 mg Q4H PRN PO 01/07/17 10:45 Sodium Phosphate 30 mmol/Sodium Chloride 250 ml @ 42 mls/hr UNSCH PRN IV 01/07/17 10:45 (K-Phos) 2,000 mg UNSCH PRN PO/TUBE 01/07/17 10:45 Potassium Phosphate 30 mmol/ Sodium Chloride 260 ml @ 42 mls/hr UNSCH PRN IV 01/07/17 10:45 Potassium Phosphate 15 mmol/ Sodium Chloride 105 ml @ 50 mls/hr ONCE ONCE IV 01/07/17 12:00 01/07/17 14:05 01/07/17 12:07 Vital Signs / I&O Vital Signs Date Time Temp Pulse Resp B/P (MAP) Pulse Ox O2 Delivery O2 Flow Rate FiO2 01/07/17 12:00 98.3 111 36 166/84 (111) 87 01/07/17 12:00 111 01/07/17 11:00 95 29 163/86 (111) 99 01/07/17 10:00 125 22 175/87 (116) 100 01/07/17 10:00 125 01/07/17 09:00 122 23 168/88 (114) 99 01/07/17 08:00 124 01/07/17 08:00 98.3 124 23 160/77 (104) 100 01/07/17 07:00 114 21 138/74 (95) 99 01/07/17 06:00 118 01/07/17 04:00 98.5 115 23 162/81 (108) 100 01/07/17 04:00 115 01/07/17 02:00 108 01/07/17 00:00 99.1 102 22 148/72 (97) 98 01/07/17 00:00 102 01/06/17 22:00 122 01/06/17 20:00 98.7 126 25 161/78 (105) 99 01/06/17 18:00 98.9 119 24 155/76 (102) 99 01/06/17 18:00 119 01/06/17 16:00 110 01/06/17 14:00 110 I/O 01/06/17 01/06/17 01/06/17 01/07/17 01/07/17 01/07/17 07:00 15:00 23:00 07:00 15:00 23:00 Intake Total 4133.6 ml 155 ml 1379 ml 368 ml Output Total 1550 ml 1400 ml 1350 ml Balance 2583.6 ml -1245 ml 29 ml 368 ml Intake IV Total 4133.6 ml 155 ml 1250 ml 368 ml Tube Feeding 129 ml Output Urine Total 1550 ml 1400 ml 1350 ml Stool Total 0 ml # Bowel Movements 0 0 Physical Exam GENERAL: NAD SKIN: Warm and dry. HEAD: Atraumatic. Normocephalic. EYES: Pupils equal and round. No scleral icterus. No injection or drainage. ENT: No nasal bleeding or discharge. Mucous membranes pink and moist. NECK: Trachea midline. No JVD. CARDIOVASCULAR: Tachycardic RESPIRATORY: No accessory muscle use. Clear to auscultation. Breath sounds equal bilaterally. GASTROINTESTINAL: Abdomen soft, non-tender, nondistended. Hepatic and splenic margins not palpable. MUSCULOSKELETAL: Extremities without clubbing, cyanosis, or edema. No obvious deformities. NEUROLOGICAL: Awake No obvious cranial nerve deficits. Laboratory Laboratory Tests Test 01/07/17 05:07 01/07/17 07:50 Lipase 130 U/L White Blood Count 16.3 TH/MM3 Red Blood Count 4.94 MIL/MM3 Hemoglobin 14.2 GM/DL Hematocrit 41.3 % Mean Corpuscular Volume 83.7 FL Mean Corpuscular Hemoglobin 28.7 PG Mean Corpuscular Hemoglobin Concent 34.3 % Red Cell Distribution Width 13.5 % Platelet Count 143 TH/MM3 Mean Platelet Volume 9.4 FL Blood Urea Nitrogen 37 MG/DL Creatinine 1.97 MG/DL Random Glucose 420 MG/DL Total Protein 6.6 GM/DL Albumin 2.5 GM/DL Calcium Level 8.2 MG/DL Alkaline Phosphatase 74 U/L Aspartate Amino Transf (AST/SGOT) 404 U/L Alanine Aminotransferase (ALT/SGPT) 123 U/L Total Bilirubin 0.7 MG/DL Sodium Level 150 MEQ/L Potassium Level 3.6 MEQ/L Chloride Level 119 MEQ/L Carbon Dioxide Level 19.3 MEQ/L Anion Gap 12 MEQ/L Estimat Glomerular Filtration Rate 44 ML/MIN Phosphorus Level 2.0 MG/DL Magnesium Level 2.0 MG/DL Assessment and Plan Problem List: (1) Elevated troponin ICD Codes: R74.8 - Abnormal levels of other serum enzymes (2) Abnormal EKG ICD Codes: R94.31 - Abnormal electrocardiogram [ECG] [EKG] (3) Diabetic ketoacidosis ICD Codes: E13.10 - Other specified diabetes mellitus with ketoacidosis without coma Status: Acute (4) Acute renal failure ICD Codes: N17.9 - Acute kidney failure, unspecified Status: Acute (5) Leukocytosis ICD Codes: D72.829 - Elevated white blood cell count, unspecified Status: Acute (6) Hyperkalemia ICD Codes: E87.5 - Hyperkalemia Status: Resolved Assessment and Plan 1) DKA resolving 2) Trop mildly elevated 3) EKG abnormal with either recent MD or ischemia Plan for cardiac catheterization once stabilized metabolically Denies all chest pain Con't ASA/Lopressor Walter Grant DO Jan 07, 2017 13:22
--- NOTE | 2017-01-07 14:19 | RADRPT ---
EXAM DATE/TIME: 01/07/2017 13:44 [place] COMPARISON: CT BRAIN W/O CONTRAST, January 05, 2017, 16:32. INDICATIONS : Altered mental status. MEDICAL HISTORY : Renal failure, acute. Hypertension. Carcinoma, gastric. SURGICAL HISTORY : Partial gastrectomy, left lower extremity stent ENCOUNTER: Initial ACUITY: 1 day PAIN SCORE: 0/10 LOCATION: cranial TECHNIQUE: Multiplanar, multisequence MRI of the brain was performed without contrast. FINDINGS: CEREBRUM: There are a few small areas of restricted diffusion in the white matter of the anterior left frontal region, all measuring less than 4 mm in size. Diffuse T2 prolongation in the periventricular white m atter without evidence of acute infarction. Moderate central and cortical atrophy. No evidence of m idline shift. No evidence of acute blood products. POSTERIOR FOSSA: There is a focal acute infarction in the left superior cerebellum measuring 1.5 cm demonstrating rest ricted diffusion. No acute blood products. No evidence of mass effect. The 4th ventricle is normal in configuration. The cerebellar pontine angle is normal in appearance. EXTRACRANIAL: The visualized portions of the orbits and paranasal sinuses are unremarkable. CONCLUSION: 1. Acute nonhemorrhagic infarction in the left superior cerebellum involving the folia measured 1.6 c m. 2. Several small areas of infarction in the left frontal white matter in an end vessel distribution. Gama Calderon MD on January 07, 2017 at 14:11 Board Certified Radiologist. This report was verified electronically.
--- NOTE | 2017-01-07 14:49 | MB ---
cc: STUART SÁNCHEZ DATE OF CONSULTATION: 01/07/2017. REASON FOR CONSULTATION: Stroke. HISTORY OF PRESENT ILLNESS: Mr. Longo is a 66-year-old man who has type 2 diabetes, hypertension and peripheral vascular disease. The patient was admitted with alteration in mental status and was found to be in diabetic ketoacidosis with renal failure also had a myocardial infarction. Despite treatment, he has not been waking up normally and has not been responsive. He had initial CT scan of the brain done on 01/05, which revealed chronic lacunar infarctions but no acute change. He had an MRI of the brain done because of mental status change today, which revealed evidence of acute infarctions in the left superior cerebellum 1.6 cm, several small areas of acute infarction left frontal white matter in the distribution as well on restricted diffusion images are identified. CURRENT MEDICATIONS: 1. He is on insulin. 2. Potassium chloride. 3. Magnesium. 4. Aspirin 81 milligrams daily. 5. Heparin 5000 units subcutaneous twice a day. 6. Hydralazine PRN. 7. Albuterol nebulizer. 8. Senokot PRN. 9. Lactulose PRN. NEUROLOGICAL EXAMINATION: VITAL SIGNS: Blood pressure is 166/84, pulse is 111, respirations 36, temperature 98 degrees. HIGHER CORTICAL FUNCTIONS: He is lethargic but arousable. He follows simple commands. Speech is very dysarthric. CRANIAL NERVES: Intact. MOTOR EXAM: On motor exam, he is weak in general without any focal deficits. REFLEXES: 2+ symmetric. LABORATORY DATA: The white count is 16,300, hemoglobin 14.2, hematocrit 41%, platelet count 143,000. Sodium is 150, potassium 3.6, chloride 119, carbon dioxide 19.3, the BUN is 37, creatinine 1.97, GFR is 44. IMPRESSION: The patient has evidence of strokes in several vascular territories including anterior circulation and posterior circulation, which raises the suspicion for cardioembolic stroke. RECOMMENDATIONS: 1. For now, continue aspirin. 2. Would recommend repeating CT of the brain on Sunday, and if no sign of hemorrhage, would at that time recommend anticoagulation. 3. Will also obtain a carotid ultrasound and echocardiogram for further evaluation. MD CURT Santana/OXANA /2:39 PM /2:48 PM
[2017-01-07] MEDS: hydrALAZINE HCL 20 MG/ML VIAL IV PUSH PRN (16:26)
--- NOTE | 2017-01-07 18:21 | RADRPT ---
EXAM DATE/TIME: 01/07/2017 17:27 [facility] COMPARISON: No previous studies available for comparison. INDICATIONS : Cerebrovascular accident. MEDICAL HISTORY : Hypertension. Renal failure, acute. Diabetes. SURGICAL HISTORY : None. ENCOUNTER: Initial ACUITY: 1 day PAIN SCORE: Nonresponsive. LOCATION: Bilateral neck PEAK SYSTOLIC VELOCITIES (cm/sec): ICA/CCA RATIO: Right: 0.9 Left: 0.5 ICA: Right: 76 Left: 58 CCA: Right: 83 Left: 114 ECA: Right: 192 Left: 138 VERTEBRAL: Right: 38 antegrade Left: 58 antegrade Elevated flow velocities and ICA/CCA ratios have been found to correlate with increased degrees of vessel stenosis, calculated as percentage of diameter relative to a normal segment of distal ICA/CCA FINDINGS: RIGHT CAROTID: No significant stenosis is visualized. The waveforms are within normal limits. LEFT CAROTID: No significant stenosis is visualized. The waveforms are within normal limits. VERTEBRAL ARTERIES: Antegrade flow is seen in both vertebral arteries. MISCELLANEOUS: None. CONCLUSION: 1. Mild visible plaque formation without hemodynamically significant stenosis. Michael Rhoades MD on January 07, 2017 at 18:18 Board Certified Radiologist. This report was verified electronically.
[2017-01-07] MEDS ORDERED: INSULIN DETEMIR 100 UNITS/ML VIAL SQ SCH (21:00)
[2017-01-08] VITALS (22 sets, daily range): BP systolic 126–176; BP diastolic 61–86; PULSE 88–130; RESP 22–34; TEMP 98.7–99.5; O2SAT 89–95
[2017-01-08] MEDS: SODIUM CHLOR 0.45% 1000 ML INJ 1,000 ML IV SCH ×2 (00:10→20:13)
[2017-01-08] MEDS: INSULIN NovoLIN REGULAR SUPPLEMENTAL SCALE SQ SCH ×6 (03:58→20:32)
[2017-01-08] MEDS: CHLORHEXIDINE GLUCONATE 2 % 1 PACK (2 CLOTHS) TOP SCH (03:58)
--- NOTE | 2017-01-08 04:07 | RADRPT ---
EXAM DATE/TIME: 01/08/2017 03:25 [facility] COMPARISON: CHEST SINGLE AP, January 05, 2017, 13:52. INDICATIONS : Shortness of breath. MEDICAL HISTORY : Hypertension. Renal failure, acute. Diabetes mellitus type II. SURGICAL HISTORY : None. ENCOUNTER: Subsequent ACUITY: 3 days PAIN SCORE: 0/10 LOCATION: Bilateral chest FINDINGS: A single view of the chest demonstrates the lungs to be symmetrically aerated without evidence of mas s, infiltrate or effusion. The cardiomediastinal contours are unremarkable. Osseous structures are intact. There is an NG tube present with tip in the upper stomach. CONCLUSION: No acute disease. Lele Chung MD on January 08, 2017 at 4:05 Board Certified Radiologist. This report was verified electronically.
[2017-01-08] MEDS: RESP: ALBUTEROL 2.5 MG/IPRATROPIUM 0.5 MG NEB (SCH) INH ×3 (04:49→20:29)
[2017-01-08] MEDS: FREE WATER G-TUBE SCH ×3 (06:00→18:00)
[2017-01-08 06:42] LABS: AUTOMATED NEUTROPHIL # 10.8 TH/MM3 (1.8-7.7); BASOPHIL % 0.2 % (0.0-2.0); HEMATOCRIT 44.2 % (39.0-51.0); LYMPH % 7.2 % (9.0-44.0); LYMPHOCYTE # 0.9 TH/MM3 (1.0-4.8); MEAN CELL VOLUME 83.8 FL (80.0-100.0); MEAN CORPUSCULAR HEMOGLOBIN 28.7 PG (27.0-34.0); MEAN CORPUSCULAR HGB CONC 34.3 % (32.0-36.0); MONO % 4.8 % (0.0-8.0); NEUT % 87.8 % (16.0-70.0); PLATELET COUNT 148 TH/MM3 (150-450); RED BLOOD COUNT 5.28 MIL/MM3 (4.50-5.90); RED CELL DISTRIBUTION WIDTH 13.6 % (11.6-17.2); WHITE BLOOD COUNT 12.4 TH/MM3 (4.0-11.0)
[2017-01-08 06:58] LABS: HEMO FLAGS AUTO DIFF
[2017-01-08 07:00] LABS: ALKALINE PHOSPHATASE 100 U/L (45-117); ALT (GPT) 129 U/L (12-78); ANION GAP 8 MEQ/L (5-15); AST (GOT) 338 U/L (15-37); BICARBONATE 25.4 MEQ/L (21.0-32.0); BLOOD UREA NITROGEN 31 MG/DL (7-18); CHLORIDE 116 MEQ/L (98-107); GLOMERULAR FILTRATION RATE 59 ML/MIN (>89); POTASSIUM 3.3 MEQ/L (3.5-5.1); SODIUM (NA) 149 MEQ/L (136-145); TOTAL BILIRUBIN ADULT 0.8 MG/DL (0.2-1.0)
[2017-01-08] MEDS: HEPARIN SODIUM - SQ 10,000 UNITS/ML VIAL SQ SCH (08:22)
[2017-01-08] MEDS: ASPIRIN 81 MG CHEW TAB CHEW SCH (08:22)
[2017-01-08] MEDS: DOCUSATE SODIUM 50 MG/SENNA 8.6 MG TAB PO SCH ×2 (08:22→20:12)
[2017-01-08] MEDS: METOPROLOL TARTRATE 50 MG TAB PO SCH (08:22)
[2017-01-08] MEDS: POTASSIUM PHOSPHATE INJ 30 MMOL in SODIUM CHLOR 0.9% 250 ML INJ 250 ML IV PRN (08:23)
[2017-01-08 08:35] LABS: BANDS 9 % (0-6); NEUTROPHIL # MANUAL DIFF 10.7 TH/MM3 (1.8-7.7); POLYS (SEG NEUTROPHILS) 77 % (16-70); WBC DIFF SAMPLE 100
[2017-01-08 08:36] LABS: PLATELET ESTIMATE SMEAR LOW (NORMAL); PLATELET MORPHOLOGY ENLARGED (NORMAL); SCAN/DIFF FINAL DIFF MANUAL
[2017-01-08] MEDS ORDERED: METOPROLOL TARTRATE 5 MG/5 ML VIAL IV PUSH PRN (09:15)
--- NOTE | 2017-01-08 09:18 | HHI.CCPN ---
Subjective Remarks/Hospital Course The patient is a 66-year-old male with past medical history of hypertension, peripheral vascular disease, type 2 diabetes mellitus who presented to [facility] emergency department for altered mental status. According to the patient's sister the last time she saw him was five days ago, she called the fire department today to check on him and when they arrived they saw the patient sitting in the bathroom not sure for how long and was unresponsive. The patient was altered and unable to give any history. His blood sugar at the scene was too high to register the and they started IV fluids and transferred into the emergency department. In the emergency room the patient was found to be in DKA and renal failure. His BMP showed severe hyperglycemia with a blood sugar of 1116 with severe metabolic acidosis and acute renal failure. His creatinine 5.0 with a BUN 68 in addition the patient was hyperkalemic with a potassium level 7.9 and a bicarb of 8.8. ABG showed severe metabolic acidosis with a pH of 7.12, CO2 21, pAO2 322, bicarb seven and saturation of 97%. Other significant labs on arrival showed lactic acidemia with elevated lactic acid level of 5.5 and elevated lipase level of 3507. His beta-hydroxybutyrate was measured at 11.4. Most of the history was obtained from the review of reviewing medical records and from my discussion with a sister who was present at the bedside. A chest x-ray In the emergency department showed no evidence of any acute cardiopulmonary disease. When seen in the emergency room the patient slowly responded to some the questions that was asked, He denies any abdominal pain, nausea or vomiting. In the emergency department was given 3 liters of crystalloids along with insulin 7.5 and units IV push and 1 gram of calcium chloride. He was placed on insulin drip in addition to amps of sodium bicarb was ordered. 01/06 Patient was on insulin drip 18u/hr overnight AG closed (13)this morning. Lactic acid resolved 1.1 from 5.5 on arrival. 01/07 No events overnight. Off insulin drip. Afebrile. Renal function is improving with Cr: 1.97 today, Na 150 from 155. 01/08 Patient is on 9L simple mask, renal function continue to improve with Cr: 1.52 from 1.97. MRI brain yesterday showed acute nonhemorrhagic infarction in the left superior cerebellum involving the folia measured 1.6 cm. Several small areas of infarction in the left frontal white matter in an end vessel distribution. Objective Vital Signs Date Time Temp Pulse Resp B/P (MAP) Pulse Ox O2 Delivery O2 Flow Rate FiO2 01/08/17 06:25 93 Simple Mask 9.00 01/08/17 06:00 130 01/08/17 04:00 99.5 22 152/83 (106) Intake and Output 01/08/17 01/08/17 01/09/17 08:00 16:00 00:00 Intake Total 1926 ml Output Total 1650 ml Balance 276 ml Result Diagram: 01/08/17 0525 01/08/1725 Other Results Laboratory Tests Test 01/07/17 18:37 01/08/17 05:25 Phosphorus Level 2.2 MG/DL 1.5 MG/DL White Blood Count 12.4 TH/MM3 Red Blood Count 5.28 MIL/MM3 Hemoglobin 15.1 GM/DL Hematocrit 44.2 % Mean Corpuscular Volume 83.8 FL Mean Corpuscular Hemoglobin 28.7 PG Mean Corpuscular Hemoglobin Concent 34.3 % Red Cell Distribution Width 13.6 % Platelet Count 148 TH/MM3 Mean Platelet Volume 9.9 FL Neutrophils (%) (Auto) 87.8 % Lymphocytes (%) (Auto) 7.2 % Monocytes (%) (Auto) 4.8 % Eosinophils (%) (Auto) 0.0 % Basophils (%) (Auto) 0.2 % Neutrophils # (Auto) 10.8 TH/MM3 Lymphocytes # (Auto) 0.9 TH/MM3 Monocytes # (Auto) 0.6 TH/MM3 Eosinophils # (Auto) 0.0 TH/MM3 Basophils # (Auto) 0.0 TH/MM3 CBC Comment AUTO DIFF Differential Total Cells Counted 100 Neutrophils % (Manual) 77 % Band Neutrophils % 9 % Lymphocytes % 9 % Monocytes % 5 % Neutrophils # (Manual) 10.7 TH/MM3 Differential Comment FINAL DIFF MANUAL Platelet Estimate LOW Platelet Morphology Comment ENLARGED Blood Urea Nitrogen 31 MG/DL Creatinine 1.52 MG/DL Random Glucose 262 MG/DL Total Protein 7.2 GM/DL Albumin 2.5 GM/DL Calcium Level 8.6 MG/DL Magnesium Level 2.0 MG/DL Alkaline Phosphatase 100 U/L Aspartate Amino Transf (AST/SGOT) 338 U/L Alanine Aminotransferase (ALT/SGPT) 129 U/L Total Bilirubin 0.8 MG/DL Sodium Level 149 MEQ/L Potassium Level 3.3 MEQ/L Chloride Level 116 MEQ/L Carbon Dioxide Level 25.4 MEQ/L Anion Gap 8 MEQ/L Estimat Glomerular Filtration Rate 59 ML/MIN Imaging Last Impressions Brain MRI 01/07/17 0000 Draft Impressions: Service Date/Time: Saturday, January 07, 2017 13:44 - CONCLUSION: 1. Acute nonhemorrhagic infarction in the left superior cerebellum involving the folia measured 1.6 cm. 2. Several small areas of infarction in the left frontal white matter in an end vessel distribution. Gama Calderon MD Liver Ultrasound 01/06/17 0000 Signed Impressions: Service Date/Time: Friday, January 06, 2017 10:40 - CONCLUSION: 1. No acute findings. No free fluid. No gallstones or right-sided hydronephrosis. Mild fatty liver. Michael Rhoades MD Chest X-Ray 01/05/17 1341 Signed Impressions: Service Date/Time: Thursday, January 05, 2017 13:52 - CONCLUSION: Normal examination. Henrik Mclaughlin MD Head CT 01/05/17 0000 Signed Impressions: Service Date/Time: Thursday, January 05, 2017 16:32 - CONCLUSION: Hypodensities I suspect are chronic lacunar infarcts. No definite acute hemorrhage or edema. Henrik Mclaughlin MD Abdomen/Pelvis CT 01/05/17 0000 Signed Impressions: Service Date/Time: Thursday, January 05, 2017 16:38 - CONCLUSION: 1. No acute abnormality observed. In particular, no appreciable inflammatory process involving the pancreas. The pancreas is somewhat blurred by breathing motion artifact limiting its evaluation. 2. Colonic diverticulosis without acute inflammation. Gama Rivers Jr., MD Objective Remarks GENERAL: Patient is lying in bed on 9L simple mask. SKIN: Warm and dry. HEAD: Normocephalic. EYES: No scleral icterus. No injection or drainage. NECK: Supple, trachea midline. No JVD or lymphadenopathy. CARDIOVASCULAR: Tachycardic without murmurs, gallops, or rubs. RESPIRATORY: Breath sounds equal bilaterally. No accessory muscle use. GASTROINTESTINAL: Abdomen soft, non-tender, nondistended. MUSCULOSKELETAL: No cyanosis, or edema. Neuro: Awake, A/P Assessment and Plan 1. Diabetic ketoacidosis. 2. Acute kidney injury. 3. Acute CVA 4. s/p Hyperkalemia 5. Hypernatremia. 6. Lactic acidemia- resolved 7. Altered mental status likely secondary to metabolic issues 8. Leukocytosis which could be stress related. 9. Elevated lipase level next elevated AST. 10. Mild elevation troponin which could be secondary to renal failure, DKA. 11. Hypertension 12. History of type 2 diabetes mellitus. 13. Peripheral vascular disease. 14. History of gastric stromal tumor Plan Neuro: Monitor neuro status closely and avoid any sedatives. CT brain -no acute intracranial process. Ammonia level: 17 MRI brain 01/07 showed acute nonhemorrhagic infarction in the left superior cerebellum involving the folia measured 1.6 cm. Several small areas of infarction in the left frontal white matter in an end vessel distribution. Carotid doppler US 01/07: Mild visible plaque without significant hemodynamic stenosis Seen by neuro- Dr. Mercado. Continue with ASA repeat CT brain tomorrow. Pulm: Wean down oxygen as mo maintain sats above 92%. Bronchodilators. CXR this morning no acute disease CV: Monitor HR and BP and maintain MAP> mmHg. Lactic acid cleared 1.8 from 5.5 on arrival Cards is following- Dr. Grant,. Increase Lopressor 75mg Q12 and ASA 81mg daily. Echo showed small LV apical thrombus , EF 40- 45% Discussed with will start AC once cleared by neuro. WIll get CT brain if negative for bleed will start heparin drip. : Monitor renal function Is and Os and avoid nephrotoxins, replacement as needed. Will need K replacement today Decrease IVF 1/2NS@50ml/hr, Renal is following- Dr. Howard. Renal function is improving with Cr: 1.5 today from 1.97 Change Free water 250ml Q6 monitor sodium level. GI: NPO per speech. Monitor LFT's, continue with tube feeds via NGT ( Glucerna 1.5 with goal rate 45ml/hr) US Liver: No acute findings. Follow up on Hepatitis profile. CT abdomen/pelvis: No acute abnormality observed. Colonic diverticulosis without acute inflammation. On Pepcid 10 mg IV q. 12 for GI prophylaxis. Monitor Lipase (now within normal) Heme: Monitor CBC Endo: On medium SSI, increase Levemir 15 u BID ID: Monitor for signs of infections( fever and WBC) no signs of infectious process. Follow up on blood cultures- NGTD, CXR negative. . GI prophylaxis with Pepcid and DVT prophylaxis with SCDs./Heparin SQ Level 3 Boy Pate MD Jan 08, 2017 09:18
[2017-01-08] MEDS ORDERED: PILL SPLITTER OTHER PRN (10:00)
[2017-01-08] MEDS: INSULIN DETEMIR 100 UNITS/ML VIAL SQ SCH ×2 (10:09→20:32)
--- NOTE | 2017-01-08 11:10 | ECHRPT ---
Indication: elev trop CONCLUSIONS The left ventricular systolic function is moderately reduced with an estimated ejection fraction in the range of 40-45%. Normal left ventricular size. There is focal apical akinesis. There is a small apparent left ventricular apical thrombus noted about 1.3 cm in size. [id number] mitral valve regurgitation. There is trace tricuspid valve regurgitation. The estimated pulmonary arterial pressure is 42.3 mmHg. BP: 152 / 83 HR: Rhythm: MEASUREMENTS (Male / Female) Normal Values Technical Quality:Good 2D ECHO LV Diastolic Diameter PLAX 3.5 cm 4.2 - 5.9 / 3.9 - 5.3 cm LV Systolic Diameter PLAX 2.9 cm IVS Diastolic Thickness 1.7 cm 0.6 - 1.0 / 0.6 - 0.9 cm LVPW Diastolic Thickness 1.0 cm 0.6 - 1.0 / 0.6 - 0.9 cm LV Relative Wall Thickness 0.8 RV Internal Dim ED PLAX 1.8 cm M-MODE Aortic Root Diameter MM 3.4 cm LA Systolic Diameter MM 2.2 cm LA Ao Ratio MM 0.6 AV Cusp Separation MM 1.9 cm DOPPLER LV E' Lateral Velocity 5.6 cm/s LV E' Septal Velocity 5.9 cm/s TR Peak Velocity 284.0 cm/s TR Peak Gradient 32.3 mmHg Right Atrial Pressure 10.0 mmHg Pulmonary Artery Systolic Pressu 42.3 mmHg Right Ventricular Systolic Press 42.3 mmHg FINDINGS LEFT VENTRICLE The left ventricular systolic function is moderately reduced with an estimated ejection fraction in the range of 40-45%. Normal left ventricular size. There is focal apical akinesis. There is a small apparent left ventricular apical thrombus noted about 1.3 cm in size. RIGHT VENTRICLE Normal right ventricular size and systolic function. LEFT ATRIUM The left atrial size is normal. RIGHT ATRIUM The right atrial size is normal. ATRIAL SEPTUM Normal atrial septal thickness without atrial level shunting by limited color doppler interrogation. AORTA The aortic root and proximal ascending aorta are normal in size on limited imaging. MITRAL VALVE Rygey-yh-oedi mitral valve regurgitation. Structurally normal mitral valve. AORTIC VALVE Trileaflet aortic valve. No aortic valve stenosis or regurgitation. TRICUSPID VALVE There is trace tricuspid valve regurgitation. Structurally normal tricuspid valve. The estimated pulmonary arterial pressure is 42.3 mmHg. PULMONARY VALVE No pulmonary valve regurgitation or stenosis. VESSELS The inferior vena cava is normal in size. PERICARDIUM No pericardial effusion. Dani Portillo MD (Electronically Signed) Final Date:08 January 2017 11:08
--- NOTE | 2017-01-08 14:18 | HHI.NPPN ---
Subjective History of Present Illness Patient 48-year-old with DKA and acute renal failure Objective Data Data Vital Signs Date Time Temp Pulse Resp B/P (MAP) Pulse Ox O2 Delivery O2 Flow Rate FiO2 01/08/17 08:00 128 01/08/17 08:00 98.7 01/08/17 06:25 93 Simple Mask 9.00 01/08/17 06:00 130 01/08/17 04:00 99.5 116 22 152/83 (106) 93 01/08/17 04:00 116 01/08/17 02:40 94 Nasal Cannula 4.00 01/08/17 02:00 107 01/08/17 00:00 99.2 107 24 165/77 (106) 93 01/08/17 00:00 107 01/07/17 22:00 95 01/07/17 20:00 116 01/07/17 20:00 98.7 116 19 142/74 (96) 94 01/07/17 18:00 117 01/07/17 18:00 117 20 134/68 (90) 100 01/07/17 17:00 114 22 131/66 (87) 94 01/07/17 16:00 97.8 105 20 163/91 (115) 97 01/07/17 16:00 105 01/07/17 15:00 90 20 151/80 (103) 100 01/07/17 14:22 98 01/07/17 14:22 98 24 165/86 (112) 99 -: 01/08/17 0525 01/08/17 0525 Physical Exam General Appearance: Well Developed, Well Nourished Neck Neck Exam: Neck Supple Pulmonary Resp Exam: Clear Bilaterally, Breath Sounds Equal Cardiology CV Exam: Regular, Normal Sinus Rhythm Gastrointestinal/Abdomen GI Exam: Soft, Non-Tender, Bowel Sounds Present Extremeties Extremities Exam: No Edema Assessment/Plan Problem List: (1) Acute renal failure ICD Codes: N17.9 - Acute kidney failure, unspecified Status: Acute Plan: This is resolving with IV hydration and insulin Sodium better 149 IV fluids Creatinine declining 1.5 Acute CVA L cerebellum no cath per Cardiology Potassium is normal Follow BMP BG better k replaced follow as needed s/o for now (2) Hyperkalemia ICD Codes: E87.5 - Hyperkalemia Status: Resolved Plan: With treatment of DKA (3) Diabetic ketoacidosis ICD Codes: E13.10 - Other specified diabetes mellitus with ketoacidosis without coma Status: Resolved Plan: Improved on insulin Levemir and sliding scale regular insulin Saúl Howard MD Jan 08, 2017 14:18
--- NOTE | 2017-01-08 15:58 | PD.CARD.PN ---
Subjective Subjective Remarks More awake, but answers only yes Objective Medications Current Medications Medications (Trade) Dose Ordered Sig/Nereida Route Start Time Stop Time Status Last Admin (NS Flush) 2 ml UNSCH PRN IVF 01/05/17 13:45 (Duoneb Neb) 1 ampule Q6HR NEB INH 01/05/17 16:00 01/07/17 20:50 (Duoneb Neb) 1 ampule Q2HR NEB PRN INH 01/05/17 15:30 Miscellaneous Information 1 Q361D XX 01/05/17 15:30 (Chlorhexidine 2% Cloth) 3 pack Taper DAILY@04 TOP 01/06/17 04:00 01/02/18 03:59 01/08/17 03:58 (Chlorhexidine 2% Cloth) 3 pack UNSCH PRN TOP 01/05/17 15:30 (Giovana-Colace) 1 tab BID PO 01/05/17 21:00 01/08/17 08:22 (Milk Of Magnesia Liq) 30 ml Q12H PRN PO 01/05/17 15:30 (Senokot) 17.2 mg Q12H PRN PO 01/05/17 15:30 (Dulcolax Supp) 10 mg DAILY PRN RECTAL 01/05/17 15:30 (Lactulose Liq) 30 ml DAILY PRN PO 01/05/17 15:30 (Apresoline Inj) 20 mg Q4H PRN IV PUSH 01/06/17 01:30 01/07/17 16:26 (Heparin Inj) 5,000 units Q12HR SQ 01/06/17 11:00 01/08/17 08:22 (D50w (Vial) Inj) 50 ml UNSCH PRN IV PUSH 01/06/17 10:30 (Glucagon Inj) 1 mg UNSCH PRN OTHER 01/06/17 10:30 (NovoLIN R SUPPLEMENTAL SCALE) 1 Q4HR SQ 01/06/17 12:00 01/08/17 15:47 (Aspirin Chew) 81 mg DAILY CHEW 01/07/17 09:00 01/08/17 08:22 Sodium Chloride 1,000 ml @ 50 mls/hr Q20H IV 01/07/17 09:30 01/08/17 00:10 Potassium Chloride 100 ml @ 50 mls/hr Q2H PRN IV 01/07/17 10:45 Potassium Chloride 100 ml @ 50 mls/hr Q2H PRN IV 01/07/17 10:45 (K-Lyte Cl Eff) 50 meq UNSCH PRN PO 01/07/17 10:45 Potassium Chloride 100 ml @ 25 mls/hr UNSCH PRN IV 01/07/17 10:45 Potassium Chloride 100 ml @ 50 mls/hr Q2H PRN IV 01/07/17 10:45 Magnesium Sulfate 4 gm/Sodium Chloride 100 ml @ 50 mls/hr UNSCH PRN IV 01/07/17 10:45 (Mag-Ox) 800 mg UNSCH PRN PO 01/07/17 10:45 Magnesium Sulfate 2 gm/Sodium Chloride 100 ml @ 50 mls/hr UNSCH PRN IV 01/07/17 10:45 (K-Phos) 2,000 mg Q4H PRN PO 01/07/17 10:45 Sodium Phosphate 30 mmol/Sodium Chloride 250 ml @ 42 mls/hr UNSCH PRN IV 01/07/17 10:45 (K-Phos) 2,000 mg UNSCH PRN PO/TUBE 01/07/17 10:45 Potassium Phosphate 30 mmol/ Sodium Chloride 260 ml @ 42 mls/hr UNSCH PRN IV 01/07/17 10:45 01/08/17 08:23 (Free Water) 250 ml Q6HR G-TUBE 01/08/17 12:00 01/08/17 12:00 (Levemir Inj) 15 units Q12HR SQ 01/08/17 21:00 01/08/17 10:09 (Lopressor) 75 mg Q12HR PO 01/08/17 21:00 (Pill Splitter) 1 ea UNSCH PRN OTHER 01/08/17 10:00 Vital Signs / I&O Vital Signs Date Time Temp Pulse Resp B/P (MAP) Pulse Ox O2 Delivery O2 Flow Rate FiO2 01/08/17 15:49 99.1 01/08/17 08:00 128 01/08/17 08:00 98.7 01/08/17 06:25 93 Simple Mask 9.00 01/08/17 06:00 130 01/08/17 04:00 99.5 116 22 152/83 (106) 93 01/08/17 04:00 116 01/08/17 02:40 94 Nasal Cannula 4.00 01/08/17 02:00 107 01/08/17 00:00 99.2 107 24 165/77 (106) 93 01/08/17 00:00 107 01/07/17 22:00 95 01/07/17 20:00 116 01/07/17 20:00 98.7 116 19 142/74 (96) 94 01/07/17 18:00 117 01/07/17 18:00 117 20 134/68 (90) 100 01/07/17 17:00 114 22 131/66 (87) 94 01/07/17 16:00 97.8 105 20 163/91 (115) 97 01/07/17 16:00 105 I/O 01/07/17 01/07/17 01/07/17 01/08/17 01/08/17 01/08/17 07:00 15:00 23:00 07:00 15:00 23:00 Intake Total 1379 ml 473 ml 1250 ml 1926 ml Output Total 1350 ml 1875 ml 1650 ml Balance 29 ml 473 ml -625 ml 276 ml Intake IV Total 1250 ml 473 ml 519 ml 931 ml Tube Feeding 129 ml 231 ml 495 ml Other 500 ml 500 ml Output Urine Total 1350 ml 1875 ml 1650 ml # Bowel Movements 0 0 0 Physical Exam GENERAL: NAD SKIN: Warm and dry. HEAD: Atraumatic. Normocephalic. EYES: Pupils equal and round. No scleral icterus. No injection or drainage. ENT: No nasal bleeding or discharge. Mucous membranes pink and moist. NECK: Trachea midline. No JVD. CARDIOVASCULAR: Tachycardic RESPIRATORY: No accessory muscle use. Clear to auscultation. Breath sounds equal bilaterally. GASTROINTESTINAL: Abdomen soft, non-tender, nondistended. Hepatic and splenic margins not palpable. MUSCULOSKELETAL: Extremities without clubbing, cyanosis, or edema. No obvious deformities. NEUROLOGICAL: Awake, alert Laboratory Laboratory Tests Test 01/07/17 18:37 01/08/17 05:25 Phosphorus Level 2.2 MG/DL 1.5 MG/DL White Blood Count 12.4 TH/MM3 Red Blood Count 5.28 MIL/MM3 Hemoglobin 15.1 GM/DL Hematocrit 44.2 % Mean Corpuscular Volume 83.8 FL Mean Corpuscular Hemoglobin 28.7 PG Mean Corpuscular Hemoglobin Concent 34.3 % Red Cell Distribution Width 13.6 % Platelet Count 148 TH/MM3 Mean Platelet Volume 9.9 FL Neutrophils (%) (Auto) 87.8 % Lymphocytes (%) (Auto) 7.2 % Monocytes (%) (Auto) 4.8 % Eosinophils (%) (Auto) 0.0 % Basophils (%) (Auto) 0.2 % Neutrophils # (Auto) 10.8 TH/MM3 Lymphocytes # (Auto) 0.9 TH/MM3 Monocytes # (Auto) 0.6 TH/MM3 Eosinophils # (Auto) 0.0 TH/MM3 Basophils # (Auto) 0.0 TH/MM3 CBC Comment AUTO DIFF Differential Total Cells Counted 100 Neutrophils % (Manual) 77 % Band Neutrophils % 9 % Lymphocytes % 9 % Monocytes % 5 % Neutrophils # (Manual) 10.7 TH/MM3 Differential Comment FINAL DIFF MANUAL Platelet Estimate LOW Platelet Morphology Comment ENLARGED Blood Urea Nitrogen 31 MG/DL Creatinine 1.52 MG/DL Random Glucose 262 MG/DL Total Protein 7.2 GM/DL Albumin 2.5 GM/DL Calcium Level 8.6 MG/DL Magnesium Level 2.0 MG/DL Alkaline Phosphatase 100 U/L Aspartate Amino Transf (AST/SGOT) 338 U/L Alanine Aminotransferase (ALT/SGPT) 129 U/L Total Bilirubin 0.8 MG/DL Sodium Level 149 MEQ/L Potassium Level 3.3 MEQ/L Chloride Level 116 MEQ/L Carbon Dioxide Level 25.4 MEQ/L Anion Gap 8 MEQ/L Estimat Glomerular Filtration Rate 59 ML/MIN Imaging Last 24 hours Impressions Chest X-Ray 01/08/17 0000 Signed Impressions: Service Date/Time: Sunday, January 08, 2017 03:25 - CONCLUSION: No acute disease. Lele Chung MD Assessment and Plan Problem List: (1) Elevated troponin ICD Codes: R74.8 - Abnormal levels of other serum enzymes (2) Abnormal EKG ICD Codes: R94.31 - Abnormal electrocardiogram [ECG] [EKG] (3) Diabetic ketoacidosis ICD Codes: E13.10 - Other specified diabetes mellitus with ketoacidosis without coma Status: Resolved (4) Acute renal failure ICD Codes: N17.9 - Acute kidney failure, unspecified Status: Acute (5) Leukocytosis ICD Codes: D72.829 - Elevated white blood cell count, unspecified Status: Acute (6) Hyperkalemia ICD Codes: E87.5 - Hyperkalemia Status: Resolved Assessment and Plan 1) DKA resolving 2) Trop mildly elevated 3) CVA on MRI Concern for cardioembolic process LV thrombus noted on echo 4) No catheterization with recent CVA 5) Discussed with critical care Once cleared by neurology, will need to be anticoagulated with heparin and placed on Coumadin Walter Grant DO Jan 08, 2017 15:58
--- NOTE | 2017-01-08 16:08 | HHI.PR ---
Review/Management Diagnosis multiple embolic strokes LV thrombus Plan CT brain today--if no hemorrhage, ok to start iv heparin with no boluses Diagnosis/Plan: Subjective Subjective Comments No acute events reported Active Medications Current Medications Medications (Trade) Dose Ordered Sig/Nereida Route Start Time Stop Time Status Last Admin (NS Flush) 2 ml UNSCH PRN IVF 01/05/17 13:45 (Duoneb Neb) 1 ampule Q6HR NEB INH 01/05/17 16:00 01/07/17 20:50 (Duoneb Neb) 1 ampule Q2HR NEB PRN INH 01/05/17 15:30 Miscellaneous Information 1 Q361D XX 01/05/17 15:30 (Chlorhexidine 2% Cloth) 3 pack Taper DAILY@04 TOP 01/06/17 04:00 01/02/18 03:59 01/08/17 03:58 (Chlorhexidine 2% Cloth) 3 pack UNSCH PRN TOP 01/05/17 15:30 (Giovana-Colace) 1 tab BID PO 01/05/17 21:00 01/08/17 08:22 (Milk Of Magnesia Liq) 30 ml Q12H PRN PO 01/05/17 15:30 (Senokot) 17.2 mg Q12H PRN PO 01/05/17 15:30 (Dulcolax Supp) 10 mg DAILY PRN RECTAL 01/05/17 15:30 (Lactulose Liq) 30 ml DAILY PRN PO 01/05/17 15:30 (Apresoline Inj) 20 mg Q4H PRN IV PUSH 01/06/17 01:30 01/07/17 16:26 (Heparin Inj) 5,000 units Q12HR SQ 01/06/17 11:00 01/08/17 08:22 (D50w (Vial) Inj) 50 ml UNSCH PRN IV PUSH 01/06/17 10:30 (Glucagon Inj) 1 mg UNSCH PRN OTHER 01/06/17 10:30 (NovoLIN R SUPPLEMENTAL SCALE) 1 Q4HR SQ 01/06/17 12:00 01/08/17 15:47 (Aspirin Chew) 81 mg DAILY CHEW 01/07/17 09:00 01/08/17 08:22 Sodium Chloride 1,000 ml @ 50 mls/hr Q20H IV 01/07/17 09:30 01/08/17 00:10 Potassium Chloride 100 ml @ 50 mls/hr Q2H PRN IV 01/07/17 10:45 Potassium Chloride 100 ml @ 50 mls/hr Q2H PRN IV 01/07/17 10:45 (K-Lyte Cl Eff) 50 meq UNSCH PRN PO 01/07/17 10:45 Potassium Chloride 100 ml @ 25 mls/hr UNSCH PRN IV 01/07/17 10:45 Potassium Chloride 100 ml @ 50 mls/hr Q2H PRN IV 01/07/17 10:45 Magnesium Sulfate 4 gm/Sodium Chloride 100 ml @ 50 mls/hr UNSCH PRN IV 01/07/17 10:45 (Mag-Ox) 800 mg UNSCH PRN PO 01/07/17 10:45 Magnesium Sulfate 2 gm/Sodium Chloride 100 ml @ 50 mls/hr UNSCH PRN IV 01/07/17 10:45 (K-Phos) 2,000 mg Q4H PRN PO 01/07/17 10:45 Sodium Phosphate 30 mmol/Sodium Chloride 250 ml @ 42 mls/hr UNSCH PRN IV 01/07/17 10:45 (K-Phos) 2,000 mg UNSCH PRN PO/TUBE 01/07/17 10:45 Potassium Phosphate 30 mmol/ Sodium Chloride 260 ml @ 42 mls/hr UNSCH PRN IV 01/07/17 10:45 01/08/17 08:23 (Free Water) 250 ml Q6HR G-TUBE 01/08/17 12:00 01/08/17 12:00 (Levemir Inj) 15 units Q12HR SQ 01/08/17 21:00 01/08/17 10:09 (Lopressor) 75 mg Q12HR PO 01/08/17 21:00 (Pill Splitter) 1 ea UNSCH PRN OTHER 01/08/17 10:00 Allergies Allergies Coded Allergies No Allergy Information Available ([id number]/24/17) Exam I&O / VS Vital Signs Date Time Temp Pulse Resp B/P (MAP) Pulse Ox O2 Delivery O2 Flow Rate FiO2 01/08/17 15:49 99.1 01/08/17 08:00 128 01/08/17 08:00 98.7 01/08/17 06:25 93 Simple Mask 9.00 01/08/17 06:00 130 01/08/17 04:00 99.5 116 22 152/83 (106) 93 01/08/17 04:00 116 01/08/17 02:40 94 Nasal Cannula 4.00 01/08/17 02:00 107 01/08/17 00:00 99.2 107 24 165/77 (106) 93 01/08/17 00:00 107 01/07/17 22:00 95 01/07/17 20:00 116 01/07/17 20:00 98.7 116 19 142/74 (96) 94 01/07/17 18:00 117 01/07/17 18:00 117 20 134/68 (90) 100 01/07/17 17:00 114 22 131/66 (87) 94 Exam Comments more alert, follows commands CN pupils 2 mm symmetric and reactive MOTOR--generalized weakness Objective Micro and Labs Laboratory Tests Test 01/07/17 18:37 01/08/17 05:25 Phosphorus Level 2.2 1.5 White Blood Count 12.4 Red Blood Count 5.28 Hemoglobin 15.1 Hematocrit 44.2 Mean Corpuscular Volume 83.8 Mean Corpuscular Hemoglobin 28.7 Mean Corpuscular Hemoglobin Concent 34.3 Red Cell Distribution Width 13.6 Platelet Count 148 Mean Platelet Volume 9.9 Neutrophils (%) (Auto) 87.8 Lymphocytes (%) (Auto) 7.2 Monocytes (%) (Auto) 4.8 Eosinophils (%) (Auto) 0.0 Basophils (%) (Auto) 0.2 Neutrophils # (Auto) 10.8 Lymphocytes # (Auto) 0.9 Monocytes # (Auto) 0.6 Eosinophils # (Auto) 0.0 Basophils # (Auto) 0.0 CBC Comment AUTO DIFF Differential Total Cells Counted 100 Neutrophils % (Manual) 77 Band Neutrophils % 9 Lymphocytes % 9 Monocytes % 5 Neutrophils # (Manual) 10.7 Differential Comment FINAL DIFF MANUAL Platelet Estimate LOW Platelet Morphology Comment ENLARGED Blood Urea Nitrogen 31 Creatinine 1.52 Random Glucose 262 Total Protein 7.2 Albumin 2.5 Calcium Level 8.6 Magnesium Level 2.0 Alkaline Phosphatase 100 Aspartate Amino Transf (AST/SGOT) 338 Alanine Aminotransferase (ALT/SGPT) 129 Total Bilirubin 0.8 Sodium Level 149 Potassium Level 3.3 Chloride Level 116 Carbon Dioxide Level 25.4 Anion Gap 8 Estimat Glomerular Filtration Rate 59 Date/Time Source Procedure Growth Status 01/07/17 05:07 Blood Peripheral Aerobic Blood Culture - Preliminary NO GROWTH IN 1 DAY Resulted 01/07/17 05:07 Blood Peripheral Anaerobic Blood Culture - Preliminary NO GROWTH IN 1 DAY Resulted Diagnostic Tests ECHO--EF 40-45 %, LV thrombus Solitario Mercado PhD Jan 08, 2017 16:08
--- NOTE | 2017-01-08 16:34 | RADRPT ---
EXAM DATE/TIME: 01/08/2017 16:17 [place] COMPARISON: MRI BRAIN W/O CONTRAST, January 07, 2017, 13:44. CT BRAIN W/O CONTRAST, January 05, 2017, 16:32. INDICATIONS : Cerebral vascular accident. RADIATION DOSE: 35.08 CTDIvol (mGy) MEDICAL HISTORY : Diabetes mellitus type 1. Hypertension. SURGICAL HISTORY : None. ENCOUNTER: Subsequent ACUITY: 3 days PAIN SCALE: 0/10 LOCATION: cranial TECHNIQUE: Multiple contiguous axial images were obtained of the head. Using automated exposure control and adj ustment of the mA and/or kV according to patient size, radiation dose was kept as low as reasonably a chievable to obtain optimal diagnostic quality images. DICOM format image data is available electro nically for review and comparison. FINDINGS: There is developing hypodensity in the left cerebellum at site of subacute infarction. There is an ol d stroke in the left lentiform nucleus and patchy hypodensities present elsewhere in the supratentori al brain which appear stable. There is no evidence of hemorrhage or mass. The extracranial structures are stable and benign. The patient's nasogastric tube is noted to be coiled in the nasopharynx CONCLUSION: Evolving left cerebellar stroke. No evidence of hemorrhage. Nasogastric tube is coiled in the pharynx Lele Klein MD on January 08, 2017 at 16:28 Board Certified Radiologist. This report was verified electronically.
[2017-01-08 19:54] LABS: HEMATOCRIT 41.8 % (39.0-51.0); MEAN CELL VOLUME 83.4 FL (80.0-100.0); MEAN CORPUSCULAR HEMOGLOBIN 28.7 PG (27.0-34.0); MEAN CORPUSCULAR HGB CONC 34.4 % (32.0-36.0); PLATELET COUNT 129 TH/MM3 (150-450); RED BLOOD COUNT 5.01 MIL/MM3 (4.50-5.90); RED CELL DISTRIBUTION WIDTH 13.2 % (11.6-17.2); REVIEW FLAG FINAL; WHITE BLOOD COUNT 14.4 TH/MM3 (4.0-11.0)
[2017-01-08 20:05] LABS: APTT (PATIENT) 27.5 SEC (24.3-30.1)
[2017-01-08] MEDS: HEPARIN-D5W 25,000 U/250 ML 250 ML IV PRN (20:15)
[2017-01-08 20:16] LABS: PROTHROMBIN TIME - PATIENT 11.3 SEC (9.8-11.6)
[2017-01-08] MEDS ORDERED: METOPROLOL TARTRATE 50 MG TAB PO SCH (21:00)
[2017-01-09] VITALS (21 sets, daily range): BP systolic 123–157; BP diastolic 62–78; PULSE 84–120; RESP 32–38; TEMP 98.9–101.6; O2SAT 88–93
[2017-01-09] MEDS: FREE WATER G-TUBE SCH
[2017-01-09] MEDS ORDERED: METOPROLOL TARTRATE 5 MG/5 ML VIAL IV PUSH SCH (00:30)
[2017-01-09 02:34] LABS: BASOPHIL % 0.2 % (0.0-2.0); HEMATOCRIT 41.8 % (39.0-51.0); LYMPH % 7.6 % (9.0-44.0); LYMPHOCYTE # 0.7 TH/MM3 (1.0-4.8); MEAN CELL VOLUME 84.3 FL (80.0-100.0); MEAN CORPUSCULAR HEMOGLOBIN 29.3 PG (27.0-34.0); MEAN CORPUSCULAR HGB CONC 34.7 % (32.0-36.0); MONO % 7.4 % (0.0-8.0); NEUT % 84.8 % (16.0-70.0); PLATELET COUNT 117 TH/MM3 (150-450); RED BLOOD COUNT 4.96 MIL/MM3 (4.50-5.90); RED CELL DISTRIBUTION WIDTH 13.3 % (11.6-17.2); WHITE BLOOD COUNT 9.4 TH/MM3 (4.0-11.0)
[2017-01-09 02:42] LABS: APTT (PATIENT) 39.7 SEC (24.3-30.1); HEMO FLAGS AUTO DIFF
[2017-01-09 03:05] LABS: ALKALINE PHOSPHATASE 110 U/L (45-117); ALT (GPT) 94 U/L (12-78); ANION GAP 11 MEQ/L (5-15); AST (GOT) 167 U/L (15-37); BICARBONATE 23.3 MEQ/L (21.0-32.0); BLOOD UREA NITROGEN 31 MG/DL (7-18); CHLORIDE 123 MEQ/L (98-107); GLOMERULAR FILTRATION RATE 62 ML/MIN (>89); MAGNESIUM 2.1 MG/DL (1.5-2.5); POTASSIUM 3.4 MEQ/L (3.5-5.1); TOTAL BILIRUBIN ADULT 0.9 MG/DL (0.2-1.0)
[2017-01-09 03:11] LABS: SODIUM (NA) 157 MEQ/L (136-145)
[2017-01-09 03:20] LABS: BANDS 19 % (0-6); DOHLE BODIES PRESENT (NONE SEEN); METAMYELOCYTES 4 % (0-1); NEUTROPHIL # MANUAL DIFF 8.3 TH/MM3 (1.8-7.7); PLATELET MORPHOLOGY NORMAL (NORMAL); POLYS (SEG NEUTROPHILS) 65 % (16-70); SCAN/DIFF FINAL DIFF MANUAL; TOXIC VACUOLATION PRESENT (NONE SEEN); WBC DIFF SAMPLE 100
[2017-01-09 03:21] LABS: PLATELET ESTIMATE SMEAR LOW (NORMAL)
[2017-01-09] MEDS ORDERED: METOPROLOL TARTRATE 5 MG/5 ML VIAL IV SCH (03:45)
[2017-01-09] MEDS: POTASSIUM PHOSPHATE MONOBASIC 500 MG TAB PO PRN ×2 (03:54→21:12)
[2017-01-09] MEDS: CHLORHEXIDINE GLUCONATE 2 % 1 PACK (2 CLOTHS) TOP SCH (03:55)
[2017-01-09] MEDS: INSULIN NovoLIN REGULAR SUPPLEMENTAL SCALE SQ SCH ×6 (03:57→21:11)
[2017-01-09] MEDS: RESP: ALBUTEROL 2.5 MG/IPRATROPIUM 0.5 MG NEB (SCH) INH ×3 (04:21→15:36)
[2017-01-09] MEDS: METOPROLOL TARTRATE 50 MG TAB PO SCH ×3 (05:36→16:35)
[2017-01-09] MEDS: FREE WATER NG SCH ×3 (06:00→16:35)
--- NOTE | 2017-01-09 08:27 | HHI.CCPN ---
Subjective Remarks/Hospital Course The patient is a 66-year-old male with past medical history of hypertension, peripheral vascular disease, type 2 diabetes mellitus who presented to [facility] emergency department for altered mental status. According to the patient's sister the last time she saw him was five days ago, she called the fire department today to check on him and when they arrived they saw the patient sitting in the bathroom not sure for how long and was unresponsive. The patient was altered and unable to give any history. His blood sugar at the scene was too high to register the and they started IV fluids and transferred into the emergency department. In the emergency room the patient was found to be in DKA and renal failure. His BMP showed severe hyperglycemia with a blood sugar of 1116 with severe metabolic acidosis and acute renal failure. His creatinine 5.0 with a BUN 68 in addition the patient was hyperkalemic with a potassium level 7.9 and a bicarb of 8.8. ABG showed severe metabolic acidosis with a pH of 7.12, CO2 21, pAO2 322, bicarb seven and saturation of 97%. Other significant labs on arrival showed lactic acidemia with elevated lactic acid level of 5.5 and elevated lipase level of 3507. His beta-hydroxybutyrate was measured at 11.4. Most of the history was obtained from the review of reviewing medical records and from my discussion with a sister who was present at the bedside. A chest x-ray In the emergency department showed no evidence of any acute cardiopulmonary disease. When seen in the emergency room the patient slowly responded to some the questions that was asked, He denies any abdominal pain, nausea or vomiting. In the emergency department was given 3 liters of crystalloids along with insulin 7.5 and units IV push and 1 gram of calcium chloride. He was placed on insulin drip in addition to amps of sodium bicarb was ordered. 01/06 Patient was on insulin drip 18u/hr overnight AG closed (13)this morning. Lactic acid resolved 1.1 from 5.5 on arrival. 01/07 No events overnight. Off insulin drip. Afebrile. Renal function is improving with Cr: 1.97 today, Na 150 from 155. 01/08 Patient is on 9L simple mask, renal function continue to improve with Cr: 1.52 from 1.97. MRI brain yesterday showed acute nonhemorrhagic infarction in the left superior cerebellum involving the folia measured 1.6 cm. Several small areas of infarction in the left frontal white matter in an end vessel distribution. 01/09 Patient is on 4L oxygen with good sats. T:99.9 Started on Heparin drip yesterday ( Echo shwoed LV apical thrombus) Repeat CT brain yesterday negative for bleed. Objective Vital Signs Date Time Temp Pulse Resp B/P (MAP) Pulse Ox O2 Delivery O2 Flow Rate FiO2 01/09/17 06:00 94 01/09/17 04:00 99.9 36 136/68 (90) 91 01/08/17 20:35 Nasal Cannula 4.00 Intake and Output 01/09/17 01/09/17 01/09/17 07:59 15:59 23:59 Intake Total 1095 ml Output Total 1400 ml Balance -305 ml Result Diagram: [id number]/1721801/[id number]/17218 Other Results Laboratory Tests Test 01/08/17 19:36 01/09/17 02:19 White Blood Count 14.4 TH/MM3 9.4 TH/MM3 Red Blood Count 5.01 MIL/MM3 4.96 MIL/MM3 Hemoglobin 14.4 GM/DL 14.5 GM/DL Hematocrit 41.8 % 41.8 % Mean Corpuscular Volume 83.4 FL 84.3 FL Mean Corpuscular Hemoglobin 28.7 PG 29.3 PG Mean Corpuscular Hemoglobin Concent 34.4 % 34.7 % Red Cell Distribution Width 13.2 % 13.3 % Platelet Count 129 TH/MM3 117 TH/MM3 Mean Platelet Volume 9.4 FL 9.5 FL Prothrombin Time 11.3 SEC Prothromb Time International Ratio 1.0 RATIO Activated Partial Thromboplast Time 27.5 SEC 39.7 SEC Potassium Level 3.5 MEQ/L 3.4 MEQ/L Neutrophils (%) (Auto) 84.8 % Lymphocytes (%) (Auto) 7.6 % Monocytes (%) (Auto) 7.4 % Eosinophils (%) (Auto) 0.0 % Basophils (%) (Auto) 0.2 % Neutrophils # (Auto) 8.0 TH/MM3 Lymphocytes # (Auto) 0.7 TH/MM3 Monocytes # (Auto) 0.7 TH/MM3 Eosinophils # (Auto) 0.0 TH/MM3 Basophils # (Auto) 0.0 TH/MM3 CBC Comment AUTO DIFF Differential Total Cells Counted 100 Neutrophils % (Manual) 65 % Band Neutrophils % 19 % Lymphocytes % 4 % Monocytes % 8 % Neutrophils # (Manual) 8.3 TH/MM3 Metamyelocytes 4 % Differential Comment FINAL DIFF MANUAL Toxic Vacuolation PRESENT Dohle Bodies PRESENT Platelet Estimate LOW Platelet Morphology Comment NORMAL Red Cell Morphology Comment NORMAL Blood Urea Nitrogen 31 MG/DL Creatinine 1.45 MG/DL Random Glucose 177 MG/DL Total Protein 6.5 GM/DL Albumin 2.0 GM/DL Calcium Level 8.2 MG/DL Phosphorus Level 1.2 MG/DL Magnesium Level 2.1 MG/DL Alkaline Phosphatase 110 U/L Aspartate Amino Transf (AST/SGOT) 167 U/L Alanine Aminotransferase (ALT/SGPT) 94 U/L Total Bilirubin 0.9 MG/DL Sodium Level 157 MEQ/L Chloride Level 123 MEQ/L Carbon Dioxide Level 23.3 MEQ/L Anion Gap 11 MEQ/L Estimat Glomerular Filtration Rate 62 ML/MIN Imaging Last Impressions Head CT 01/08/17 0000 Signed Impressions: Service Date/Time: Sunday, January 08, 2017 16:17 - CONCLUSION: Evolving left cerebellar stroke. No evidence of hemorrhage. Nasogastric tube is coiled in the pharynx Lele Klein MD Chest X-Ray 01/08/17 0000 Signed Impressions: Service Date/Time: Sunday, January 08, 2017 03:25 - CONCLUSION: No acute disease. Lele Chung MD Carotid Artery Ultrasound 01/07/17 0000 Signed Impressions: Service Date/Time: Saturday, January 07, 2017 17:27 - CONCLUSION: 1. Mild visible plaque formation without hemodynamically significant stenosis. Michael Rhoades MD Brain MRI 01/07/17 0000 Signed Impressions: Service Date/Time: Saturday, January 07, 2017 13:44 - CONCLUSION: 1. Acute nonhemorrhagic infarction in the left superior cerebellum involving the folia measured 1.6 cm. 2. Several small areas of infarction in the left frontal white matter in an end vessel distribution. Gama Calderon MD Liver Ultrasound 01/06/17 0000 Signed Impressions: Service Date/Time: Friday, January 06, 2017 10:40 - CONCLUSION: 1. No acute findings. No free fluid. No gallstones or right-sided hydronephrosis. Mild fatty liver. Michael Rhoades MD Abdomen/Pelvis CT 01/05/17 0000 Signed Impressions: Service Date/Time: Thursday, January 05, 2017 16:38 - CONCLUSION: 1. No acute abnormality observed. In particular, no appreciable inflammatory process involving the pancreas. The pancreas is somewhat blurred by breathing motion artifact limiting its evaluation. 2. Colonic diverticulosis without acute inflammation. Gama Rivers Jr., MD Objective Remarks GENERAL: Patient is lying in bed on 9L simple mask. SKIN: Warm and dry. HEAD: Normocephalic. EYES: No scleral icterus. No injection or drainage. NECK: Supple, trachea midline. No JVD or lymphadenopathy. CARDIOVASCULAR: Tachycardic without murmurs, gallops, or rubs. RESPIRATORY: Breath sounds equal bilaterally. No accessory muscle use. GASTROINTESTINAL: Abdomen soft, non-tender, nondistended. MUSCULOSKELETAL: No cyanosis, or edema. Neuro: Awake, A/P Assessment and Plan 1. Diabetic ketoacidosis. 2. Acute kidney injury. 3. Acute CVA 4. Resp Insuff 5. Hypernatremia. 6. Lactic acidemia- resolved 7. Acute CVA 8. Leukocytosis which could be stress related. 9. LV apical thrombus 10. NSTEMI 11. Hypertension 12. History of type 2 diabetes mellitus. 13. Peripheral vascular disease. 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 Repeat CT brain 01/08: Evolving left cerebellar stroke. No evidence of hemorrhage CT brain 01/05 -no acute intracranial process. Ammonia level: 17 MRI brain 01/07 showed acute nonhemorrhagic infarction in the left superior cerebellum involving the folia measured 1.6 cm. Several small areas of infarction in the left frontal white matter in an end vessel distribution. Carotid doppler US 01/07: Mild visible plaque without significant hemodynamic stenosis Seen by neuro- Dr. Mercado. Continue with ASA Pulm: Wean down oxygen as mo maintain sats above 92%. Bronchodilators. CXR yesterday no acute disease CV: Monitor HR and BP and maintain MAP> mmHg. Lactic acid cleared 1.8 from 5.5 on arrival Cards is following- Dr. Grant, Lopressor 50mg Q6 and ASA 81mg daily. Echo showed small LV apical thrombus, EF 40-45% Continue with Heparin drip- cleared [place] Neuro Cards is following- Dr. Grant : Monitor renal function Is and Os and avoid nephrotoxins, replacement as needed. Will need K, Phos replacement today Renal is following- Dr. Howard. Renal function continue to improve 1.45 from 1.52 Change Free water 300ml Q6, change IVF D5W@75ml/hr x 1liter. monitor sodium level. GI: NPO per speech. Monitor LFT's, continue with tube feeds via NGT ( Glucerna 1.5 with goal rate 45ml/hr) US Liver: No acute findings. Hepatitis profile: Hep C ab reactive. CT abdomen/pelvis: No acute abnormality observed. Colonic diverticulosis without acute inflammation. On Pepcid 10 mg IV q. 12 for GI prophylaxis. Monitor Lipase (now within normal) Heme: Monitor CBC Endo: On medium SSI, Levemir 15 u BID ID: Monitor for signs of infections( fever and WBC) Will brody culture for T: 100.3 01/07 blood cultures- NGTD, CXR negative. WBC is trending down. Place on empiric abx ( Zosyn) . GI prophylaxis with Pepcid and DVT prophylaxis with SCDs./Heparin drip Level 3 Boy Pate MD Jan 09, 2017 08:26
[2017-01-09] MEDS ORDERED: DEXTROSE 5% IN WATE 1000ML INJ 1,000 ML IV ONE (09:00)
[2017-01-09] MEDS: DOCUSATE SODIUM 50 MG/SENNA 8.6 MG TAB PO SCH ×2 (09:22→21:12)
[2017-01-09] MEDS: POTASSIUM PHOSPHATE INJ 30 MMOL in SODIUM CHLOR 0.9% 250 ML INJ 250 ML IV PRN (09:22)
[2017-01-09] MEDS: ASPIRIN 81 MG CHEW TAB CHEW SCH (09:22)
[2017-01-09] MEDS: INSULIN DETEMIR 100 UNITS/ML VIAL SQ SCH ×2 (09:23→21:12)
[2017-01-09] MEDS ORDERED: ACETAMINOPHEN 325 MG TAB PO ONE (11:15)
[2017-01-09] MEDS: PIPERACIL-TAZO 3.375 GM PREMIX 50 ML IV SCH ×2 (12:34→16:35)
[2017-01-09 13:05] LABS: BACTERIA, URINE OCC /hpf; BLOOD, URINE MOD (NEG); COMMENT (UR) CATH-CULTURE IND; CULTURE IF INDICATED CATH CULTURE IND; GLUCOSE,URINE 1000 mg/dL (NEG); KETONE, URINE NEG (NEG); MUCUS URINE FEW /lpf (OCC); NITRITE,URINE NEG (NEG); PH, URINE 5.5 (5.0-8.5); URINE COLOR YELLOW (YELLW/STRAW)
--- NOTE | 2017-01-09 19:42 | PD.CARD.PN ---
Subjective Subjective Remarks Patient was seen earlier today, late entry note More awake, answers questions but slow to answer Objective Medications Current Medications Medications (Trade) Dose Ordered Sig/Nereida Route Start Time Stop Time Status Last Admin (NS Flush) 2 ml UNSCH PRN IVF 01/05/17 13:45 (Duoneb Neb) 1 ampule Q2HR NEB PRN INH 01/05/17 15:30 Miscellaneous Information 1 Q361D XX 01/05/17 15:30 (Chlorhexidine 2% Cloth) 3 pack Taper DAILY@04 TOP 01/06/17 04:00 01/02/18 03:59 01/09/17 03:55 (Chlorhexidine 2% Cloth) 3 pack UNSCH PRN TOP 01/05/17 15:30 (Giovana-Colace) 1 tab BID PO 01/05/17 21:00 01/09/17 09:22 (Milk Of Magnesia Liq) 30 ml Q12H PRN PO 01/05/17 15:30 (Senokot) 17.2 mg Q12H PRN PO 01/05/17 15:30 (Dulcolax Supp) 10 mg DAILY PRN RECTAL 01/05/17 15:30 (Lactulose Liq) 30 ml DAILY PRN PO 01/05/17 15:30 (Apresoline Inj) 20 mg Q4H PRN IV PUSH 01/06/17 01:30 01/07/17 16:26 (D50w (Vial) Inj) 50 ml UNSCH PRN IV PUSH 01/06/17 10:30 (Glucagon Inj) 1 mg UNSCH PRN OTHER 01/06/17 10:30 (NovoLIN R SUPPLEMENTAL SCALE) 1 Q4HR SQ 01/06/17 12:00 01/09/17 16:00 (Aspirin Chew) 81 mg DAILY CHEW 01/07/17 09:00 01/09/17 09:22 Potassium Chloride 100 ml @ 50 mls/hr Q2H PRN IV 01/07/17 10:45 Potassium Chloride 100 ml @ 50 mls/hr Q2H PRN IV 01/07/17 10:45 (K-Lyte Cl Eff) 50 meq UNSCH PRN PO 01/07/17 10:45 Potassium Chloride 100 ml @ 25 mls/hr UNSCH PRN IV 01/07/17 10:45 Potassium Chloride 100 ml @ 50 mls/hr Q2H PRN IV 01/07/17 10:45 Magnesium Sulfate 4 gm/Sodium Chloride 100 ml @ 50 mls/hr UNSCH PRN IV 01/07/17 10:45 (Mag-Ox) 800 mg UNSCH PRN PO 01/07/17 10:45 Magnesium Sulfate 2 gm/Sodium Chloride 100 ml @ 50 mls/hr UNSCH PRN IV 01/07/17 10:45 (K-Phos) 2,000 mg Q4H PRN PO 01/07/17 10:45 01/09/17 03:54 Sodium Phosphate 30 mmol/Sodium Chloride 250 ml @ 42 mls/hr UNSCH PRN IV 01/07/17 10:45 (K-Phos) 2,000 mg UNSCH PRN PO/TUBE 01/07/17 10:45 Potassium Phosphate 30 mmol/ Sodium Chloride 260 ml @ 42 mls/hr UNSCH PRN IV 01/07/17 10:45 01/09/17 09:22 (Levemir Inj) 15 units Q12HR SQ 01/08/17 21:00 01/09/17 09:23 (Pill Splitter) 1 ea UNSCH PRN OTHER 01/08/17 10:00 Heparin Sodium/ Dextrose 250 ml @ 8 mls/hr TITRATE PRN IV 01/08/17 17:00 01/08/17 20:15 (Lopressor) 50 mg Q6HR PO 01/09/17 06:00 01/09/17 16:35 (Free Water) 300 ml Q6HR NG 01/09/17 06:00 01/09/17 16:35 Dextrose 1,000 ml @ 75 mls/hr [id number] ONCE IV 01/09/17 09:00 01/09/17 22:19 01/09/17 09:22 Piperacillin Sod/ Tazobactam Sod 50 ml @ 100 mls/hr Q6HR IV 01/09/17 12:00 01/09/17 16:35 Vital Signs / I&O Vital Signs Date Time Temp Pulse Resp B/P (MAP) Pulse Ox O2 Delivery O2 Flow Rate FiO2 01/09/17 18:00 84 32 138/71 (93) 92 01/09/17 17:00 95 32 141/72 (95) 92 01/09/17 16:00 98.9 107 35 136/69 (91) 88 01/09/17 15:00 96 38 131/65 (87) 89 01/09/17 14:00 92 37 123/63 (83) 89 01/09/17 13:00 105 36 124/62 (82) 90 01/09/17 12:00 99.0 120 37 137/67 (90) 88 01/09/17 11:00 118 36 145/75 (98) 91 01/09/17 10:00 100.3 111 36 136/68 (90) 90 01/09/17 09:00 107 38 134/70 (91) 90 01/09/17 08:33 93 Nasal Cannula 4.00 01/09/17 08:00 99.9 98 37 134/67 (89) 91 01/09/17 06:00 94 01/09/17 04:00 97 01/09/17 04:00 99.9 97 36 136/68 (90) 91 01/09/17 02:00 113 01/09/17 00:00 98.9 105 35 139/63 (88) 90 01/09/17 00:00 105 01/08/17 22:00 88 01/08/17 20:35 92 Nasal Cannula 4.00 01/08/17 20:00 98.8 124 34 131/61 (84) 89 01/08/17 20:00 124 I/O 01/08/17 01/08/17 01/08/17 01/09/17 01/09/17 01/09/17 07:00 15:00 23:00 07:00 15:00 23:00 Intake Total 1926 ml 1070 ml 1095 ml 300 ml 1825 ml Output Total 1650 ml 1500 ml 1400 ml 1000 ml Balance 276 ml -430 ml -305 ml 300 ml 825 ml Intake IV Total 931 ml 300 ml 700 ml Tube Feeding 495 ml 510 ml 445 ml 525 ml Other 500 ml 560 ml 650 ml 600 ml Output Urine Total 1650 ml 1500 ml 1400 ml 1000 ml # Bowel Movements 0 0 1 Physical Exam GENERAL: NAD SKIN: Warm and dry. HEAD: Atraumatic. Normocephalic. EYES: Pupils equal and round. No scleral icterus. No injection or drainage. ENT: No nasal bleeding or discharge. Mucous membranes pink and moist. NECK: Trachea midline. No JVD. CARDIOVASCULAR: Tachycardic RESPIRATORY: No accessory muscle use. Clear to auscultation. Breath sounds equal bilaterally. GASTROINTESTINAL: Abdomen soft, non-tender, nondistended. Hepatic and splenic margins not palpable. MUSCULOSKELETAL: Extremities without clubbing, cyanosis, or edema. No obvious deformities. NEUROLOGICAL: Awake, alert Laboratory Laboratory Tests Test 01/09/17 02:19 01/09/17 10:45 01/09/17 11:34 01/09/17 16:54 White Blood Count 9.4 TH/MM3 Red Blood Count 4.96 MIL/MM3 Hemoglobin 14.5 GM/DL Hematocrit 41.8 % Mean Corpuscular Volume 84.3 FL Mean Corpuscular Hemoglobin 29.3 PG Mean Corpuscular Hemoglobin Concent 34.7 % Red Cell Distribution Width 13.3 % Platelet Count 117 TH/MM3 Mean Platelet Volume 9.5 FL Neutrophils (%) (Auto) 84.8 % Lymphocytes (%) (Auto) 7.6 % Monocytes (%) (Auto) 7.4 % Eosinophils (%) (Auto) 0.0 % Basophils (%) (Auto) 0.2 % Neutrophils # (Auto) 8.0 TH/MM3 Lymphocytes # (Auto) 0.7 TH/MM3 Monocytes # (Auto) 0.7 TH/MM3 Eosinophils # (Auto) 0.0 TH/MM3 Basophils # (Auto) 0.0 TH/MM3 CBC Comment AUTO DIFF Differential Total Cells Counted 100 Neutrophils % (Manual) 65 % Band Neutrophils % 19 % Lymphocytes % 4 % Monocytes % 8 % Neutrophils # (Manual) 8.3 TH/MM3 Metamyelocytes 4 % Differential Comment FINAL DIFF MANUAL Toxic Vacuolation PRESENT Dohle Bodies PRESENT Platelet Estimate LOW Platelet Morphology Comment NORMAL Red Cell Morphology Comment NORMAL Activated Partial Thromboplast Time 39.7 SEC 54.0 SEC 58.0 SEC Blood Urea Nitrogen 31 MG/DL Creatinine 1.45 MG/DL Random Glucose 177 MG/DL Total Protein 6.5 GM/DL Albumin 2.0 GM/DL Calcium Level 8.2 MG/DL Phosphorus Level 1.2 MG/DL Magnesium Level 2.1 MG/DL Alkaline Phosphatase 110 U/L Aspartate Amino Transf (AST/SGOT) 167 U/L Alanine Aminotransferase (ALT/SGPT) 94 U/L Total Bilirubin 0.9 MG/DL Sodium Level 157 MEQ/L Potassium Level 3.4 MEQ/L Chloride Level 123 MEQ/L Carbon Dioxide Level 23.3 MEQ/L Anion Gap 11 MEQ/L Estimat Glomerular Filtration Rate 62 ML/MIN Urine Color YELLOW Urine Turbidity HAZY Urine pH 5.5 Urine Specific [place] 1.014 Urine Protein 30 mg/dL Urine Glucose (UA) 1000 mg/dL Urine Ketones NEG mg/dL Urine Occult Blood MOD Urine Nitrite NEG Urine Bilirubin NEG Urine Urobilinogen 2.0 MG/DL Urine Leukocyte Esterase NEG Urine RBC 1 /hpf Urine WBC 3 /hpf Urine Bacteria OCC /hpf Urine Mucus FEW /lpf Urine Yeast (Budding) RARE Microscopic Urinalysis Comment CATH-CULTURE IND Test 01/09/17 19:17 Assessment and Plan Problem List: (1) Elevated troponin ICD Codes: R74.8 - Abnormal levels of other serum enzymes (2) Abnormal EKG ICD Codes: R94.31 - Abnormal electrocardiogram [ECG] [EKG] (3) Diabetic ketoacidosis ICD Codes: E13.10 - Other specified diabetes mellitus with ketoacidosis without coma Status: Resolved (4) Acute renal failure ICD Codes: N17.9 - Acute kidney failure, unspecified Status: Acute (5) Leukocytosis ICD Codes: D72.829 - Elevated white blood cell count, unspecified Status: Acute (6) Hyperkalemia ICD Codes: E87.5 - Hyperkalemia Status: Resolved Assessment and Plan 1) DKA resolving 2) Trop mildly elevated 3) CVA on MRI Concern for cardioembolic process LV thrombus noted on echo 4) No catheterization with recent CVA 5) Discussed with critical care Started on heparin, will need transfer to PO anticoagulation Walter Grant DO Jan 09, 2017 19:42
[2017-01-09 19:47] LABS: POTASSIUM 3.5 MEQ/L (3.5-5.1)
[2017-01-09] MEDS: RESP: ALBUTEROL 2.5 MG/IPRATROPIUM 0.5 MG NEB (PRN) INH (20:56)
[2017-01-10] VITALS (23 sets, daily range): BP systolic 95–148; BP diastolic 54–75; PULSE 87–120; RESP 34–41; TEMP 98.7–101.1; O2SAT 72–98
[2017-01-10] MEDS: METOPROLOL TARTRATE 50 MG TAB PO SCH ×4 (00:12→17:32)
[2017-01-10] MEDS: PIPERACIL-TAZO 3.375 GM PREMIX 50 ML IV SCH ×4 (00:12→17:32)
[2017-01-10] MEDS: INSULIN NovoLIN REGULAR SUPPLEMENTAL SCALE SQ SCH ×6 (00:13→20:00)
[2017-01-10] MEDS: RESP: ALBUTEROL 2.5 MG/IPRATROPIUM 0.5 MG NEB (PRN) INH (00:25)
[2017-01-10] MEDS: HEPARIN-D5W 25,000 U/250 ML 250 ML IV PRN (00:54)
[2017-01-10] MEDS: POTASSIUM PHOSPHATE MONOBASIC 500 MG TAB PO PRN (01:41)
[2017-01-10] MEDS: CHLORHEXIDINE GLUCONATE 2 % 1 PACK (2 CLOTHS) TOP SCH (04:00)
[2017-01-10] MEDS: FREE WATER NG SCH ×4 (05:36→17:32)
[2017-01-10 06:48] LABS: AUTOMATED NEUTROPHIL # 6.6 TH/MM3 (1.8-7.7); BASOPHIL % 0.1 % (0.0-2.0); EOSINOPHIL % 0.1 % (0.0-4.0); HEMATOCRIT 40.6 % (39.0-51.0); LYMPH % 11.3 % (9.0-44.0); MEAN CELL VOLUME 85.2 FL (80.0-100.0); MEAN CORPUSCULAR HEMOGLOBIN 29.5 PG (27.0-34.0); MEAN CORPUSCULAR HGB CONC 34.6 % (32.0-36.0); MONO % 11.7 % (0.0-8.0); NEUT % 76.8 % (16.0-70.0); PLATELET COUNT 118 TH/MM3 (150-450); RED BLOOD COUNT 4.76 MIL/MM3 (4.50-5.90); RED CELL DISTRIBUTION WIDTH 13.1 % (11.6-17.2); WHITE BLOOD COUNT 8.6 TH/MM3 (4.0-11.0)
[2017-01-10 06:59] LABS: HEMO FLAGS AUTO DIFF
[2017-01-10 07:37] LABS: BICARBONATE 23.2 MEQ/L (21.0-32.0); MAGNESIUM 2.2 MG/DL (1.5-2.5)
[2017-01-10 07:41] LABS: CALCIUM-PROTEIN CORRECTED 7.7 MG/DL (8.5-10.1); TOTAL BILIRUBIN ADULT 0.9 MG/DL (0.2-1.0)
[2017-01-10 08:14] LABS: BANDS 48 % (0-6); METAMYELOCYTES 1 % (0-1); NEUTROPHIL # MANUAL DIFF 7.1 TH/MM3 (1.8-7.7); POLYS (SEG NEUTROPHILS) 34 % (16-70); WBC DIFF SAMPLE 100
[2017-01-10 08:15] LABS: PLATELET ESTIMATE SMEAR LOW (NORMAL); PLATELET MORPHOLOGY NORMAL (NORMAL); SCAN/DIFF FINAL DIFF MANUAL; TOXIC GRANULATION 1+ (NORMAL)
[2017-01-10 08:16] LABS: DOHLE BODIES PRESENT (NONE SEEN)
[2017-01-10 08:17] LABS: TOXIC VACUOLATION PRESENT (NONE SEEN)
[2017-01-10] MEDS: ASPIRIN 81 MG CHEW TAB CHEW SCH (09:00)
[2017-01-10] MEDS: INSULIN DETEMIR 100 UNITS/ML VIAL SQ SCH ×2 (09:00→20:39)
[2017-01-10] MEDS: DOCUSATE SODIUM 50 MG/SENNA 8.6 MG TAB PO SCH ×2 (09:14→20:37)
--- NOTE | 2017-01-10 09:24 | HHI.PR ---
Review/Management Diagnosis multiple embolic strokes LV thrombus Plan continue iv heparin. Will require [facility] anticoagulation Diagnosis/Plan: Subjective Subjective Comments No acute events reported On iv heparin for LV thrombus/CVA Active Medications Current Medications Medications (Trade) Dose Ordered Sig/Nereida Route Start Time Stop Time Status Last Admin (NS Flush) 2 ml UNSCH PRN IVF 01/05/17 13:45 (Duoneb Neb) 1 ampule Q2HR NEB PRN INH 01/05/17 15:30 01/10/17 00:25 Miscellaneous Information 1 Q361D XX 01/05/17 15:30 (Chlorhexidine 2% Cloth) 3 pack Taper DAILY@04 TOP 01/06/17 04:00 01/02/18 03:59 01/10/17 04:00 (Chlorhexidine 2% Cloth) 3 pack UNSCH PRN TOP 01/05/17 15:30 (Giovana-Colace) 1 tab BID PO 01/05/17 21:00 01/10/17 09:14 (Milk Of Magnesia Liq) 30 ml Q12H PRN PO 01/05/17 15:30 (Senokot) 17.2 mg Q12H PRN PO 01/05/17 15:30 (Dulcolax Supp) 10 mg DAILY PRN RECTAL 01/05/17 15:30 (Lactulose Liq) 30 ml DAILY PRN PO 01/05/17 15:30 (Apresoline Inj) 20 mg Q4H PRN IV PUSH 01/06/17 01:30 01/07/17 16:26 (D50w (Vial) Inj) 50 ml UNSCH PRN IV PUSH 01/06/17 10:30 (Glucagon Inj) 1 mg UNSCH PRN OTHER 01/06/17 10:30 (NovoLIN R SUPPLEMENTAL SCALE) 1 Q4HR SQ 01/06/17 12:00 01/10/17 04:17 (Aspirin Chew) 81 mg DAILY CHEW 01/07/17 09:00 01/09/17 09:22 Potassium Chloride 100 ml @ 50 mls/hr Q2H PRN IV 01/07/17 10:45 Potassium Chloride 100 ml @ 50 mls/hr Q2H PRN IV 01/07/17 10:45 (K-Lyte Cl Eff) 50 meq UNSCH PRN PO 01/07/17 10:45 Potassium Chloride 100 ml @ 25 mls/hr UNSCH PRN IV 01/07/17 10:45 Potassium Chloride 100 ml @ 50 mls/hr Q2H PRN IV 01/07/17 10:45 Magnesium Sulfate 4 gm/Sodium Chloride 100 ml @ 50 mls/hr UNSCH PRN IV 01/07/17 10:45 (Mag-Ox) 800 mg UNSCH PRN PO 01/07/17 10:45 Magnesium Sulfate 2 gm/Sodium Chloride 100 ml @ 50 mls/hr UNSCH PRN IV 01/07/17 10:45 (K-Phos) 2,000 mg Q4H PRN PO 01/07/17 10:45 01/10/17 01:41 Sodium Phosphate 30 mmol/Sodium Chloride 250 ml @ 42 mls/hr UNSCH PRN IV 01/07/17 10:45 (K-Phos) 2,000 mg UNSCH PRN PO/TUBE 01/07/17 10:45 Potassium Phosphate 30 mmol/ Sodium Chloride 260 ml @ 42 mls/hr UNSCH PRN IV 01/07/17 10:45 01/09/17 09:22 (Levemir Inj) 15 units Q12HR SQ 01/08/17 21:00 01/09/17 21:12 (Pill Splitter) 1 ea UNSCH PRN OTHER 01/08/17 10:00 Heparin Sodium/ Dextrose 250 ml @ 8 mls/hr TITRATE PRN IV 01/08/17 17:00 01/10/17 00:54 (Lopressor) 50 mg Q6HR PO 01/09/17 06:00 01/10/17 05:36 (Free Water) 300 ml Q6HR NG 01/09/17 06:00 01/10/17 05:36 Piperacillin Sod/ Tazobactam Sod 50 ml @ 100 mls/hr Q6HR IV 01/09/17 12:00 01/10/17 05:35 Allergies Allergies Coded Allergies No Allergy Information Available ([id number]/24/17) Exam I&O / VS Vital Signs Date Time Temp Pulse Resp B/P (MAP) Pulse Ox O2 Delivery O2 Flow Rate FiO2 01/10/17 09:02 92 Nasal Cannula 5.00 01/10/17 06:00 101 01/10/17 04:00 114 01/10/17 04:00 100.8 114 38 95/54 (68) 72 01/10/17 02:00 104 01/10/17 00:00 120 01/10/17 00:00 101.1 120 35 137/66 (89) 91 01/09/17 23:00 101.6 119 35 139/76 (97) 92 01/09/17 22:00 116 34 146/78 (100) 92 01/09/17 22:00 116 01/09/17 21:00 112 34 157/77 (103) 92 01/09/17 20:57 92 Nasal Cannula 5.00 01/09/17 20:00 109 01/09/17 20:00 109 36 152/72 (98) 89 01/09/17 18:00 84 32 138/71 (93) 92 01/09/17 17:00 95 32 141/72 (95) 92 01/09/17 16:00 98.9 107 35 136/69 (91) 88 01/09/17 15:00 96 38 131/65 (87) 89 01/09/17 14:00 92 37 123/63 (83) 89 01/09/17 13:00 105 36 124/62 (82) 90 01/09/17 12:00 99.0 120 37 137/67 (90) 88 01/09/17 11:00 118 36 145/75 (98) 91 01/09/17 10:00 100.3 111 36 136/68 (90) 90 Exam Comments lethargic and arousable. He can talk slightly--tells me name and follows simple commands CN intact. MOTOR--generalized weakness Objective Micro and Labs Laboratory Tests Test 01/09/17 10:45 01/09/17 11:34 01/09/17 16:54 01/09/17 19:17 Urine Color YELLOW Urine Turbidity HAZY Urine pH 5.5 Urine Specific [place] 1.014 Urine Protein 30 Urine Glucose (UA) 1000 Urine Ketones NEG Urine Occult Blood MOD Urine Nitrite NEG Urine Bilirubin NEG Urine Urobilinogen 2.0 Urine Leukocyte Esterase NEG Urine RBC 1 Urine WBC 3 Urine Bacteria OCC Urine Mucus FEW Urine Yeast (Budding) RARE Microscopic Urinalysis Comment CATH-CULTURE IND Activated Partial Thromboplast Time 54.0 58.0 Potassium Level 3.5 Phosphorus Level 2.4 Test 01/10/17 05:23 White Blood Count 8.6 Red Blood Count 4.76 Hemoglobin 14.0 Hematocrit 40.6 Mean Corpuscular Volume 85.2 Mean Corpuscular Hemoglobin 29.5 Mean Corpuscular Hemoglobin Concent 34.6 Red Cell Distribution Width 13.1 Platelet Count 118 Mean Platelet Volume 10.8 Neutrophils (%) (Auto) 76.8 Lymphocytes (%) (Auto) 11.3 Monocytes (%) (Auto) 11.7 Eosinophils (%) (Auto) 0.1 Basophils (%) (Auto) 0.1 Neutrophils # (Auto) 6.6 Lymphocytes # (Auto) 1.0 Monocytes # (Auto) 1.0 Eosinophils # (Auto) 0.0 Basophils # (Auto) 0.0 CBC Comment AUTO DIFF Differential Total Cells Counted 100 Neutrophils % (Manual) 34 Band Neutrophils % 48 Lymphocytes % 11 Monocytes % 6 Neutrophils # (Manual) 7.1 Metamyelocytes 1 Differential Comment FINAL DIFF MANUAL Toxic Granulation 1+ Toxic Vacuolation PRESENT Dohle Bodies PRESENT Platelet Estimate LOW Platelet Morphology Comment NORMAL Activated Partial Thromboplast Time 50.0 Blood Urea Nitrogen 34 Creatinine 1.66 Random Glucose 233 Total Protein 6.4 Albumin 1.7 Calcium Level 7.3 Phosphorus Level 2.0 Magnesium Level 2.2 Alkaline Phosphatase 101 Aspartate Amino Transf (AST/SGOT) 85 Alanine Aminotransferase (ALT/SGPT) 64 Total Bilirubin 0.9 Sodium Level 153 Potassium Level 3.0 Chloride Level 119 Carbon Dioxide Level 23.2 Anion Gap 11 Estimat Glomerular Filtration Rate 53 Protein Corrected Calcium 7.7 Date/Time Source Procedure Growth Status 01/09/17 11:29 Blood Peripheral Aerobic Blood Culture Pending Received 01/09/17 11:29 Blood Peripheral Anaerobic Blood Culture Pending Received 01/09/17 11:00 Sputum Expectorated Sputum Gram Stain - Final Resulted 01/09/17 11:00 Sputum Expectorated Sputum Sputum Culture Pending Resulted 01/09/17 10:45 Urine Catheterized Urine Urine Culture Pending Received Solitario Mercado. PhD Jan 10, 2017 09:24
--- NOTE | 2017-01-10 10:17 | HHI.CCPN ---
Subjective Remarks/Hospital Course The patient is a 66-year-old male with past medical history of hypertension, peripheral vascular disease, type 2 diabetes mellitus who presented to [facility] emergency department for altered mental status. According to the patient's sister the last time she saw him was five days ago, she called the fire department today to check on him and when they arrived they saw the patient sitting in the bathroom not sure for how long and was unresponsive. The patient was altered and unable to give any history. His blood sugar at the scene was too high to register the and they started IV fluids and transferred into the emergency department. In the emergency room the patient was found to be in DKA and renal failure. His BMP showed severe hyperglycemia with a blood sugar of 1116 with severe metabolic acidosis and acute renal failure. His creatinine 5.0 with a BUN 68 in addition the patient was hyperkalemic with a potassium level 7.9 and a bicarb of 8.8. ABG showed severe metabolic acidosis with a pH of 7.12, CO2 21, pAO2 322, bicarb seven and saturation of 97%. Other significant labs on arrival showed lactic acidemia with elevated lactic acid level of 5.5 and elevated lipase level of 3507. His beta-hydroxybutyrate was measured at 11.4. Most of the history was obtained from the review of reviewing medical records and from my discussion with a sister who was present at the bedside. A chest x-ray In the emergency department showed no evidence of any acute cardiopulmonary disease. When seen in the emergency room the patient slowly responded to some the questions that was asked, He denies any abdominal pain, nausea or vomiting. In the emergency department was given 3 liters of crystalloids along with insulin 7.5 and units IV push and 1 gram of calcium chloride. He was placed on insulin drip in addition to amps of sodium bicarb was ordered. 01/06 Patient was on insulin drip 18u/hr overnight AG closed (13)this morning. Lactic acid resolved 1.1 from 5.5 on arrival. 01/07 No events overnight. Off insulin drip. Afebrile. Renal function is improving with Cr: 1.97 today, Na 150 from 155. 01/08 Patient is on 9L simple mask, renal function continue to improve with Cr: 1.52 from 1.97. MRI brain yesterday showed acute nonhemorrhagic infarction in the left superior cerebellum involving the folia measured 1.6 cm. Several small areas of infarction in the left frontal white matter in an end vessel distribution. 01/09 Patient is on 4L oxygen with good sats. T:99.9 Started on Heparin drip yesterday ( Echo showed LV apical thrombus) Repeat CT brain yesterday negative for bleed. 01/10: Mildly tachypneic today. Febrile overnight Tmax 101.6. Na 153. Cultures are pending Objective Vital Signs Date Time Temp Pulse Resp B/P (MAP) Pulse Ox O2 Delivery O2 Flow Rate FiO2 01/10/17 09:02 92 Nasal Cannula 5.00 01/10/17 06:00 101 01/10/17 04:00 100.8 38 95/54 (68) Intake and Output 01/10/17 01/10/17 01/11/17 08:00 16:00 00:00 Intake Total 1775 ml Output Total 1550 ml Balance 225 ml Result Diagram: 01/10/17 0523 01/10/17 0523 Imaging Last Impressions Head CT 01/08/17 0000 Signed Impressions: Service Date/Time: Sunday, January 08, 2017 16:17 - CONCLUSION: Evolving left cerebellar stroke. No evidence of hemorrhage. Nasogastric tube is coiled in the pharynx Lele Klein MD Chest X-Ray 01/08/17 0000 Signed Impressions: Service Date/Time: Sunday, January 08, 2017 03:25 - CONCLUSION: No acute disease. Lele Chung MD Carotid Artery Ultrasound 01/07/17 0000 Signed Impressions: Service Date/Time: Saturday, January 07, 2017 17:27 - CONCLUSION: 1. Mild visible plaque formation without hemodynamically significant stenosis. Michael Rhoades MD Brain MRI 01/07/17 0000 Signed Impressions: Service Date/Time: Saturday, January 07, 2017 13:44 - CONCLUSION: 1. Acute nonhemorrhagic infarction in the left superior cerebellum involving the folia measured 1.6 cm. 2. Several small areas of infarction in the left frontal white matter in an end vessel distribution. Gama Calderon MD Liver Ultrasound 01/06/17 0000 Signed Impressions: Service Date/Time: Friday, January 06, 2017 10:40 - CONCLUSION: 1. No acute findings. No free fluid. No gallstones or right-sided hydronephrosis. Mild fatty liver. Michael Rhoades MD Abdomen/Pelvis CT 01/05/17 0000 Signed Impressions: Service Date/Time: Thursday, January 05, 2017 16:38 - CONCLUSION: 1. No acute abnormality observed. In particular, no appreciable inflammatory process involving the pancreas. The pancreas is somewhat blurred by breathing motion artifact limiting its evaluation. 2. Colonic diverticulosis without acute inflammation. Gama Rivers Jr., MD Objective Remarks GENERAL: Patient is lying in bed on NC, slightly tachypneic SKIN: Warm and dry. HEAD: Normocephalic. EYES: No scleral icterus. No injection or drainage. NECK: Supple, trachea midline. No JVD or lymphadenopathy. CARDIOVASCULAR: Tachycardic without murmurs, gallops, or rubs. RESPIRATORY: Breath sounds equal bilaterally. No accessory muscle use. GASTROINTESTINAL: Abdomen soft, non-tender, nondistended. MUSCULOSKELETAL: No cyanosis, or edema. Neuro: Awake, alert following commands A/P Assessment and Plan 1. Diabetic ketoacidosis. 2. Acute kidney injury. 3. Acute CVA 4. Resp Insufficiency 5. Hypernatremia. 6. Lactic acidemia- resolved 7. Acute CVA 8. Leukocytosis which could be stress related. 9. LV apical thrombus 10. NSTEMI 11. Hypertension 12. History of type 2 diabetes mellitus. 13. Peripheral vascular disease. 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 Repeat CT brain 01/08: Evolving left cerebellar stroke. No evidence of hemorrhage CT brain 01/05 -no acute intracranial process. Ammonia level: 17 MRI brain 01/07 showed acute nonhemorrhagic infarction in the left superior cerebellum involving the folia measured 1.6 cm. Several small areas of infarction in the left frontal white matter in an end vessel distribution. Carotid Doppler US 01/07: Mild visible plaque without significant hemodynamic stenosis Seen by neuro- Dr. Mercado. Continue with ASA Pulm: Wean down oxygen as tolerated maintain sats above 92%. Bronchodilators. CXR 01/08 no acute disease CV: Monitor HR and BP and maintain MAP> mmHg. Lactic acid cleared 1.8 from 5.5 on arrival Cards is following- Dr. Grant, Lopressor 50mg Q6 and ASA 81mg daily. Echo showed small LV apical thrombus, EF 40-45% Continue with Heparin drip- cleared [place] Neuro Cards is following- Dr. Grant : Monitor renal function Is and Os and avoid nephrotoxins, replacement as needed. Will need K, Phos replacement today Renal is following- Dr. Howard. Renal function slightly worse 1.45 to 1.66 Free water 300ml Q6, IVF D5W@75ml/hr x 1liter. Na 153 GI: NPO per speech. Monitor LFT's, continue with tube feeds via NGT ( Glucerna 1.5 with goal rate 45ml/hr) US Liver: No acute findings. Hepatitis profile: Hep C ab reactive. CT abdomen/pelvis: No acute abnormality observed. Colonic diverticulosis without acute inflammation. On Pepcid 10 mg IV q. 12 for GI prophylaxis. Monitor Lipase (now within normal) Heme: Monitor CBC Endo: On medium SSI, Levemir 15 u BID ID: Continue to spike high fever. Cultures 01/09 pending, CXR today pending Monitor for signs of infections( fever and WBC) 01/07 blood cultures- NGTD, WBC is trending down. Continue empiric abx ( Zosyn). Give 1 dose of vanc . GI prophylaxis with Pepcid and DVT prophylaxis with SCDs./Heparin drip Level 3 Nj Royal MD Jan 10, 2017 10:17
[2017-01-10] MEDS ORDERED: VANCOMYCIN INJ 1,000 MG in SODIUM CHLOR 0.9% 250 ML INJ 250 ML IV ONE (10:30)
--- NOTE | 2017-01-10 10:41 | RADRPT ---
EXAM DATE/TIME: 01/10/2017 10:05 [facility] COMPARISON: CHEST SINGLE AP, January 08, 2017, 3:25. INDICATIONS : Respiratory disease. MEDICAL HISTORY : Diabetes mellitus type I. Hypertension SURGICAL HISTORY : None. ENCOUNTER: Subsequent ACUITY: 4 - 6 days PAIN SCORE: Non-responsive. LOCATION: Bilateral chest FINDINGS: Nasogastric tube is also GE junction. Increasing bibasilar consolidative changes worse on the left. Mild compensated cardiomegaly CONCLUSION: Increasing consolidative changes left base Tamir Montaño MD FACR on January 10, 2017 at 10:39 Board Certified Radiologist. This report was verified electronically.
[2017-01-10] MEDS: POTASSIUM CHLOR 20 MEQ PREMIX 100 ML IV PRN ×4 (13:22→20:38)
--- NOTE | 2017-01-10 18:59 | PD.CARD.PN ---
Subjective Subjective Remarks Patient was seen earlier today, late entry note More awake, answers questions but slow to answer Spiking temperatures Objective Medications Current Medications Medications (Trade) Dose Ordered Sig/Nereida Route Start Time Stop Time Status Last Admin (NS Flush) 2 ml UNSCH PRN IVF 01/05/17 13:45 (Duoneb Neb) 1 ampule Q2HR NEB PRN INH 01/05/17 15:30 01/10/17 00:25 Miscellaneous Information 1 Q361D XX 01/05/17 15:30 (Chlorhexidine 2% Cloth) 3 pack Taper DAILY@04 TOP 01/06/17 04:00 01/02/18 03:59 01/10/17 04:00 (Chlorhexidine 2% Cloth) 3 pack UNSCH PRN TOP 01/05/17 15:30 (Giovana-Colace) 1 tab BID PO 01/05/17 21:00 01/10/17 09:14 (Milk Of Magnesia Liq) 30 ml Q12H PRN PO 01/05/17 15:30 (Senokot) 17.2 mg Q12H PRN PO 01/05/17 15:30 (Dulcolax Supp) 10 mg DAILY PRN RECTAL 01/05/17 15:30 (Lactulose Liq) 30 ml DAILY PRN PO 01/05/17 15:30 (Apresoline Inj) 20 mg Q4H PRN IV PUSH 01/06/17 01:30 01/07/17 16:26 (D50w (Vial) Inj) 50 ml UNSCH PRN IV PUSH 01/06/17 10:30 (Glucagon Inj) 1 mg UNSCH PRN OTHER 01/06/17 10:30 (NovoLIN R SUPPLEMENTAL SCALE) 1 Q4HR SQ 01/06/17 12:00 01/10/17 16:00 (Aspirin Chew) 81 mg DAILY CHEW 01/07/17 09:00 01/10/17 09:00 Potassium Chloride 100 ml @ 50 mls/hr Q2H PRN IV 01/07/17 10:45 Potassium Chloride 100 ml @ 50 mls/hr Q2H PRN IV 01/07/17 10:45 01/10/17 18:24 (K-Lyte Cl Eff) 50 meq UNSCH PRN PO 01/07/17 10:45 Potassium Chloride 100 ml @ 25 mls/hr UNSCH PRN IV 01/07/17 10:45 Potassium Chloride 100 ml @ 50 mls/hr Q2H PRN IV 01/07/17 10:45 Magnesium Sulfate 4 gm/Sodium Chloride 100 ml @ 50 mls/hr UNSCH PRN IV 01/07/17 10:45 (Mag-Ox) 800 mg UNSCH PRN PO 01/07/17 10:45 Magnesium Sulfate 2 gm/Sodium Chloride 100 ml @ 50 mls/hr UNSCH PRN IV 01/07/17 10:45 (K-Phos) 2,000 mg Q4H PRN PO 01/07/17 10:45 01/10/17 01:41 Sodium Phosphate 30 mmol/Sodium Chloride 250 ml @ 42 mls/hr UNSCH PRN IV 01/07/17 10:45 (K-Phos) 2,000 mg UNSCH PRN PO/TUBE 01/07/17 10:45 Potassium Phosphate 30 mmol/ Sodium Chloride 260 ml @ 42 mls/hr UNSCH PRN IV 01/07/17 10:45 01/09/17 09:22 (Levemir Inj) 15 units Q12HR SQ 01/08/17 21:00 01/10/17 09:00 (Pill Splitter) 1 ea UNSCH PRN OTHER 01/08/17 10:00 Heparin Sodium/ Dextrose 250 ml @ 8 mls/hr TITRATE PRN IV 01/08/17 17:00 01/10/17 00:54 (Lopressor) 50 mg Q6HR PO 01/09/17 06:00 01/10/17 17:32 (Free Water) 300 ml Q6HR NG 01/09/17 06:00 01/10/17 17:32 Piperacillin Sod/ Tazobactam Sod 50 ml @ 100 mls/hr Q6HR IV 01/09/17 12:00 01/10/17 17:32 Vital Signs / I&O Vital Signs Date Time Temp Pulse Resp B/P (MAP) Pulse Ox O2 Delivery O2 Flow Rate FiO2 01/10/17 18:00 90 01/10/17 17:15 109 37 98 01/10/17 17:00 109 35 148/72 (97) 94 01/10/17 16:45 104 35 93 01/10/17 16:30 106 38 94 01/10/17 16:15 96 38 93 01/10/17 16:00 94 36 114/58 (76) 91 01/10/17 16:00 99.4 01/10/17 15:01 94 40 124/60 (81) 92 01/10/17 15:01 94 01/10/17 14:00 117 01/10/17 14:00 117 36 142/75 (97) 90 01/10/17 13:00 111 01/10/17 13:00 111 34 137/69 (91) 93 01/10/17 12:00 108 01/10/17 12:00 108 36 114/61 (78) 89 01/10/17 12:00 99.4 01/10/17 11:00 113 38 121/60 (80) 90 01/10/17 11:00 113 01/10/17 10:00 114 01/10/17 10:00 114 38 122/62 (82) 90 01/10/17 09:02 92 Nasal Cannula 5.00 01/10/17 09:00 110 41 110/66 (81) 88 01/10/17 08:00 101 40 128/64 (85) 90 01/10/17 08:00 87 01/10/17 06:00 101 01/10/17 04:00 114 01/10/17 04:00 100.8 114 38 95/54 (68) 72 01/10/17 02:00 104 01/10/17 00:00 120 01/10/17 00:00 101.1 120 35 137/66 (89) 91 01/09/17 23:00 101.6 119 35 139/76 (97) 92 01/09/17 22:00 116 34 146/78 (100) 92 01/09/17 22:00 116 01/09/17 21:00 112 34 157/77 (103) 92 01/09/17 20:57 92 Nasal Cannula 5.00 01/09/17 20:00 109 01/09/17 20:00 109 36 152/72 (98) 89 I/O 01/09/17 01/09/17 01/09/17 01/10/17 01/10/17 01/10/17 07:00 15:00 23:00 07:00 15:00 23:00 Intake Total 1095 ml 300 ml 1825 ml 1775 ml 400 ml 1210 ml Output Total 1400 ml 1000 ml 1550 ml 850 ml Balance -305 ml 300 ml 825 ml 225 ml 400 ml 360 ml Intake IV Total 300 ml 700 ml 650 ml 400 ml 150 ml Tube Feeding 445 ml 525 ml 475 ml 460 ml Other 650 ml 600 ml 650 ml 600 ml Output Urine Total 1400 ml 1000 ml 1550 ml 850 ml # Bowel Movements 1 3 7 Physical Exam GENERAL: NAD SKIN: Warm and dry. HEAD: Atraumatic. Normocephalic. EYES: Pupils equal and round. No scleral icterus. No injection or drainage. ENT: No nasal bleeding or discharge. Mucous membranes pink and moist. NECK: Trachea midline. No JVD. CARDIOVASCULAR: Tachycardic RESPIRATORY: No accessory muscle use. Clear to auscultation. Breath sounds equal bilaterally. GASTROINTESTINAL: Abdomen soft, non-tender, nondistended. Hepatic and splenic margins not palpable. MUSCULOSKELETAL: Extremities without clubbing, cyanosis, or edema. No obvious deformities. NEUROLOGICAL: Awake, alert Laboratory Laboratory Tests Test 01/09/17 19:17 01/10/17 05:23 Potassium Level 3.5 MEQ/L 3.0 MEQ/L Phosphorus Level 2.4 MG/DL 2.0 MG/DL White Blood Count 8.6 TH/MM3 Red Blood Count 4.76 MIL/MM3 Hemoglobin 14.0 GM/DL Hematocrit 40.6 % Mean Corpuscular Volume 85.2 FL Mean Corpuscular Hemoglobin 29.5 PG Mean Corpuscular Hemoglobin Concent 34.6 % Red Cell Distribution Width 13.1 % Platelet Count 118 TH/MM3 Mean Platelet Volume 10.8 FL Neutrophils (%) (Auto) 76.8 % Lymphocytes (%) (Auto) 11.3 % Monocytes (%) (Auto) 11.7 % Eosinophils (%) (Auto) 0.1 % Basophils (%) (Auto) 0.1 % Neutrophils # (Auto) 6.6 TH/MM3 Lymphocytes # (Auto) 1.0 TH/MM3 Monocytes # (Auto) 1.0 TH/MM3 Eosinophils # (Auto) 0.0 TH/MM3 Basophils # (Auto) 0.0 TH/MM3 CBC Comment AUTO DIFF Differential Total Cells Counted 100 Neutrophils % (Manual) 34 % Band Neutrophils % 48 % Lymphocytes % 11 % Monocytes % 6 % Neutrophils # (Manual) 7.1 TH/MM3 Metamyelocytes 1 % Differential Comment FINAL DIFF MANUAL Toxic Granulation 1+ Toxic Vacuolation PRESENT Dohle Bodies PRESENT Platelet Estimate LOW Platelet Morphology Comment NORMAL Activated Partial Thromboplast Time 50.0 SEC Blood Urea Nitrogen 34 MG/DL Creatinine 1.66 MG/DL Random Glucose 233 MG/DL Total Protein 6.4 GM/DL Albumin 1.7 GM/DL Calcium Level 7.3 MG/DL Magnesium Level 2.2 MG/DL Alkaline Phosphatase 101 U/L Aspartate Amino Transf (AST/SGOT) 85 U/L Alanine Aminotransferase (ALT/SGPT) 64 U/L Total Bilirubin 0.9 MG/DL Sodium Level 153 MEQ/L Chloride Level 119 MEQ/L Carbon Dioxide Level 23.2 MEQ/L Anion Gap 11 MEQ/L Estimat Glomerular Filtration Rate 53 ML/MIN Protein Corrected Calcium 7.7 MG/DL Imaging Last 24 hours Impressions Chest X-Ray 01/10/17 0000 Signed Impressions: Service Date/Time: Tuesday, January 10, 2017 10:05 - CONCLUSION: Increasing consolidative changes left base Tamir Montaño MD FACR Assessment and Plan Problem List: (1) Elevated troponin ICD Codes: R74.8 - Abnormal levels of other serum enzymes (2) Abnormal EKG ICD Codes: R94.31 - Abnormal electrocardiogram [ECG] [EKG] (3) Diabetic ketoacidosis ICD Codes: E13.10 - Other specified diabetes mellitus with ketoacidosis without coma Status: Resolved (4) Acute renal failure ICD Codes: N17.9 - Acute kidney failure, unspecified Status: Acute (5) Leukocytosis ICD Codes: D72.829 - Elevated white blood cell count, unspecified Status: Acute (6) Hyperkalemia ICD Codes: E87.5 - Hyperkalemia Status: Resolved Assessment and Plan 1) DKA resolving 2) Trop mildly elevated 3) CVA on MRI Concern for cardioembolic process LV thrombus noted on echo 4) No catheterization with recent CVA 5) Discussed with critical care Started on heparin, will need transfer to PO anticoagulation Walter Grant DO Jan 10, 2017 18:59
[2017-01-11] VITALS (20 sets, daily range): BP systolic 86–165; BP diastolic 54–85; PULSE 79–117; RESP 31–48; TEMP 98.3–98.6; O2SAT 88–97
[2017-01-11] MEDS: PIPERACIL-TAZO 3.375 GM PREMIX 50 ML IV SCH ×4 (00:22→18:12)
[2017-01-11] MEDS: METOPROLOL TARTRATE 50 MG TAB PO SCH ×4 (00:22→17:43)
[2017-01-11] MEDS: HEPARIN-D5W 25,000 U/250 ML 250 ML IV PRN (01:29)
[2017-01-11] MEDS: INSULIN NovoLIN REGULAR SUPPLEMENTAL SCALE SQ SCH ×6 (04:00→20:00)
[2017-01-11] MEDS: CHLORHEXIDINE GLUCONATE 2 % 1 PACK (2 CLOTHS) TOP SCH (04:00)
[2017-01-11] MEDS: FREE WATER NG SCH ×5 (05:07→20:00)
--- NOTE | 2017-01-11 05:40 | RADRPT ---
EXAM DATE/TIME: 01/11/2017 03:53 [facility] COMPARISON: CHEST SINGLE AP, January 10, 2017, 10:05. INDICATIONS : Shortness of breath, possible pulmonary disease. MEDICAL HISTORY : Diabetes mellitus type I. Hypertension SURGICAL HISTORY : None. ENCOUNTER: Subsequent ACUITY: 4 - 6 days PAIN SCORE: Non-responsive. LOCATION: Bilateral chest FINDINGS: The NG tube tip is directed into the stomach. The heart size is normal. There is mild increased densi ty at the bases. CONCLUSION: Mild bibasilar areas of consolidation or atelectasis. Lele Chung MD on January 11, 2017 at 5:37 Board Certified Radiologist. This report was verified electronically.
[2017-01-11 06:55] LABS: AUTOMATED NEUTROPHIL # 9.6 TH/MM3 (1.8-7.7); BASOPHIL % 0.1 % (0.0-2.0); EOSINOPHIL % 0.1 % (0.0-4.0); HEMATOCRIT 38.4 % (39.0-51.0); LYMPH % 8.8 % (9.0-44.0); LYMPHOCYTE # 1.1 TH/MM3 (1.0-4.8); MEAN CELL VOLUME 85.6 FL (80.0-100.0); MEAN CORPUSCULAR HGB CONC 33.9 % (32.0-36.0); PLATELET COUNT 126 TH/MM3 (150-450); RED BLOOD COUNT 4.48 MIL/MM3 (4.50-5.90); RED CELL DISTRIBUTION WIDTH 13.3 % (11.6-17.2)
[2017-01-11 07:16] LABS: HEMO FLAGS AUTO DIFF
[2017-01-11 07:19] LABS: BICARBONATE 27.5 MEQ/L (21.0-32.0); CALCIUM-PROTEIN CORRECTED 7.8 MG/DL (8.5-10.1); MAGNESIUM 2.5 MG/DL (1.5-2.5); POTASSIUM 3.3 MEQ/L (3.5-5.1); TOTAL BILIRUBIN ADULT 0.8 MG/DL (0.2-1.0)
[2017-01-11 08:45] LABS: BANDS 18 % (0-6); BLASTS 1 % (0-0); DOHLE BODIES PRESENT (NONE SEEN); NEUTROPHIL # MANUAL DIFF 9.6 TH/MM3 (1.8-7.7); PLATELET ESTIMATE SMEAR LOW (NORMAL); PLATELET MORPHOLOGY ENLARGED (NORMAL); POLYS (SEG NEUTROPHILS) 62 % (16-70); TOXIC GRANULATION 1+ (NORMAL); WBC DIFF SAMPLE 100
[2017-01-11 08:46] LABS: SCAN/DIFF FINAL DIFF MANUAL
[2017-01-11] MEDS: INSULIN DETEMIR 100 UNITS/ML VIAL SQ SCH ×2 (09:00→21:00)
[2017-01-11] MEDS: DOCUSATE SODIUM 50 MG/SENNA 8.6 MG TAB PO SCH ×2 (09:50→21:00)
[2017-01-11] MEDS: ASPIRIN 81 MG CHEW TAB CHEW SCH (09:50)
[2017-01-11] MEDS: DEXTROSE 5% IN WATE 1000ML INJ 1,000 ML IV SCH ×2 (11:00→22:21)
[2017-01-11] MEDS: SODIUM CHLORIDE 23.4% INJ 38.5 MEQ in WATER STERILE FOR INJ 1,000 ML IV SCH ×2 (12:10→21:06)
[2017-01-11 12:49] LABS: APTT (PATIENT) 36.2 SEC (24.3-30.1)
[2017-01-11] MEDS: POTASSIUM CHLOR 20 MEQ PREMIX 100 ML IV PRN ×2 (12:56→15:50)
[2017-01-11] MEDS ORDERED: POTASSIUM CHLORIDE 25 MEQ EFFERVESCENT TAB PO ONE (14:30)
[2017-01-11] MEDS ORDERED: FUROSEMIDE 20 MG/2 ML VIAL IV PUSH ONE (14:30)
--- NOTE | 2017-01-11 14:35 | HHI.CCPN ---
Subjective Remarks/Hospital Course The patient is a 66-year-old male with past medical history of hypertension, peripheral vascular disease, type 2 diabetes mellitus who presented to [facility] emergency department for altered mental status. According to the patient's sister the last time she saw him was five days ago, she called the fire department today to check on him and when they arrived they saw the patient sitting in the bathroom not sure for how long and was unresponsive. The patient was altered and unable to give any history. His blood sugar at the scene was too high to register the and they started IV fluids and transferred into the emergency department. In the emergency room the patient was found to be in DKA and renal failure. His BMP showed severe hyperglycemia with a blood sugar of 1116 with severe metabolic acidosis and acute renal failure. His creatinine 5.0 with a BUN 68 in addition the patient was hyperkalemic with a potassium level 7.9 and a bicarb of 8.8. ABG showed severe metabolic acidosis with a pH of 7.12, CO2 21, pAO2 322, bicarb seven and saturation of 97%. Other significant labs on arrival showed lactic acidemia with elevated lactic acid level of 5.5 and elevated lipase level of 3507. His beta-hydroxybutyrate was measured at 11.4. Most of the history was obtained from the review of reviewing medical records and from my discussion with a sister who was present at the bedside. A chest x-ray In the emergency department showed no evidence of any acute cardiopulmonary disease. When seen in the emergency room the patient slowly responded to some the questions that was asked, He denies any abdominal pain, nausea or vomiting. In the emergency department was given 3 liters of crystalloids along with insulin 7.5 and units IV push and 1 gram of calcium chloride. He was placed on insulin drip in addition to amps of sodium bicarb was ordered. 01/06 Patient was on insulin drip 18u/hr overnight AG closed (13)this morning. Lactic acid resolved 1.1 from 5.5 on arrival. 01/07 No events overnight. Off insulin drip. Afebrile. Renal function is improving with Cr: 1.97 today, Na 150 from 155. 01/08 Patient is on 9L simple mask, renal function continue to improve with Cr: 1.52 from 1.97. MRI brain yesterday showed acute nonhemorrhagic infarction in the left superior cerebellum involving the folia measured 1.6 cm. Several small areas of infarction in the left frontal white matter in an end vessel distribution. 01/09 Patient is on 4L oxygen with good sats. T:99.9 Started on Heparin drip yesterday ( Echo showed LV apical thrombus) Repeat CT brain yesterday negative for bleed. 01/10: Mildly tachypneic today. Febrile overnight Tmax 101.6. Na 153. Cultures are pending 01/11: Appears to be in moderate respiratory distress today, difficulty with clearing secretions. Chest x-ray shows some pulmonary vascular congestion and basilar infiltrates, sputum culture with GNR. Sodium elevated at 158 increased from yesterday 153. Started 02/15 saline at 100 ML per hour, increased the water flushes. Afebrile today Objective Vital Signs Date Time Temp Pulse Resp B/P (MAP) Pulse Ox O2 Delivery O2 Flow Rate FiO2 01/11/17 13:00 81 01/11/17 09:05 92 Nasal Cannula 5.00 01/11/17 04:00 98.6 34 137/74 (95) Intake and Output 01/11/17 01/11/17 01/12/17 08:00 16:00 00:00 Intake Total 802 ml Output Total 450 ml Balance 352 ml Result Diagram: 01/11/17 0605 01/11/17 0605 Other Results Microbiology Date/Time Source Procedure Growth Status 01/09/17 10:45 Urine Catheterized Urine Urine Culture - Final NO GROWTH IN 48 HOURS. Complete Imaging Last Impressions Head CT 01/08/17 0000 Signed Impressions: Service Date/Time: Sunday, January 08, 2017 16:17 - CONCLUSION: Evolving left cerebellar stroke. No evidence of hemorrhage. Nasogastric tube is coiled in the pharynx Lele Klein MD Chest X-Ray 01/08/17 0000 Signed Impressions: Service Date/Time: Sunday, January 08, 2017 03:25 - CONCLUSION: No acute disease. Lele Chung MD Carotid Artery Ultrasound 01/07/17 0000 Signed Impressions: Service Date/Time: Saturday, January 07, 2017 17:27 - CONCLUSION: 1. Mild visible plaque formation without hemodynamically significant stenosis. Michael Rhoades MD Brain MRI 01/07/17 0000 Signed Impressions: Service Date/Time: Saturday, January 07, 2017 13:44 - CONCLUSION: 1. Acute nonhemorrhagic infarction in the left superior cerebellum involving the folia measured 1.6 cm. 2. Several small areas of infarction in the left frontal white matter in an end vessel distribution. Gama Calderon MD Liver Ultrasound 01/06/17 0000 Signed Impressions: Service Date/Time: Friday, January 06, 2017 10:40 - CONCLUSION: 1. No acute findings. No free fluid. No gallstones or right-sided hydronephrosis. Mild fatty liver. Michael Rhoades MD Abdomen/Pelvis CT 01/05/17 0000 Signed Impressions: Service Date/Time: Thursday, January 05, 2017 16:38 - CONCLUSION: 1. No acute abnormality observed. In particular, no appreciable inflammatory process involving the pancreas. The pancreas is somewhat blurred by breathing motion artifact limiting its evaluation. 2. Colonic diverticulosis without acute inflammation. Gama Rivers Jr., MD Objective Remarks GENERAL: Patient is lying in bed on NC, tachypneic, moderate distress due to difficulty clearing secretions SKIN: Warm and dry. HEAD: Normocephalic. EYES: No scleral icterus. No injection or drainage. NECK: Supple, trachea midline. No JVD or lymphadenopathy. CARDIOVASCULAR: Tachycardic without murmurs, gallops, or rubs. RESPIRATORY: Breath sounds equal bilaterally. No accessory muscle use. Few basilar crackles GASTROINTESTINAL: Abdomen soft, non-tender, nondistended. MUSCULOSKELETAL: No cyanosis, or edema. Neuro: Awake, alert following commands. No focal deficits overall lethargic A/P Assessment and Plan ASSESSMENT Respiratory insufficiency/failure Healthcare associated pneumonia Sepsis Acute kidney injury. Acute CVA Hypernatremia. Diabetic ketoacidosis. Lactic acidemia- resolved Leukocytosis LV apical thrombus NSTEMI Hypertension History of type 2 diabetes mellitus. Peripheral vascular disease. 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 Repeat CT brain 01/08: Evolving left cerebellar stroke. No evidence of hemorrhage CT brain 01/05 -no acute intracranial process. MRI brain 01/07 showed acute nonhemorrhagic infarction in the left superior cerebellum involving the folia measured 1.6 cm. Several small areas of infarction in the left frontal white matter in an end vessel distribution. Carotid Doppler US 01/07: Mild visible plaque without significant hemodynamic stenosis Seen by neuro- Dr. Mercado. Continue with ASA Pulm: Supplemental oxygen to maintain sats above 92%. Bronchodilators. CXR 01/08 no acute disease On broad-spectrum antibiotics for pneumonia Add EzPAP and a cappella Need frequent suctioning and aggressive pulmonary care, I discussed respiratory decompensation CV: Monitor HR and BP and maintain MAP> mmHg. Lactic acid cleared 1.8 from 5.5 on arrival Cards is following- Dr. Grant, Lopressor 50mg Q6 and ASA 81mg daily. Echo showed small LV apical thrombus, EF 40-45% Continue with Heparin drip- cleared ny Neuro : Monitor renal function Is and Os and avoid nephrotoxins, replacement as needed. Renal is following- Dr. Howard. Renal function slightly worse 1.45 to 1.66 Free water 300ml Q6, start 1/ NS at 100 ml per hour, Na 158 from 153 Bumex 1 mg x1 to prevent volume overload GI: NPO per speech. Monitor LFT's, continue with tube feeds via NGT ( Glucerna 1.5 with goal rate 45ml/hr) US Liver: No acute findings. Hepatitis profile: Hep C ab reactive. CT abdomen/pelvis: No acute abnormality observed. Colonic diverticulosis without acute inflammation. On Pepcid 10 mg IV q. 12 for GI prophylaxis. Monitor Lipase (now within normal) Heme: Monitor CBC Endo: On medium SSI, Levemir 15 u BID ID: [email or web address] trending down Cultures 01/09 sputum GNR Monitor for signs of infections( fever and WBC) 01/07 blood cultures- NGTD Continue empiric abx ( Zosyn). Given 1 dose of vanc . GI prophylaxis with Pepcid and DVT prophylaxis with SCDs./Heparin drip CCT 32. Patient is at acute risk of respiratory decompensation, has evidence of pneumonia continue antibiotics continue aggressive pulmonary toilet breathing treatments. Also severe hyponatremia complicating picture. Free water replacement increased Nj Royal MD Jan 11, 2017 14:35
[2017-01-11] MEDS: RESP: ALBUTEROL 2.5 MG/IPRATROPIUM 0.5 MG NEB (SCH) NEB ×2 (15:23→21:04)
[2017-01-11 18:16] LABS: APTT (PATIENT) 38.3 SEC (24.3-30.1)
--- NOTE | 2017-01-11 19:45 | HHI.PR ---
Review/Management Diagnosis multiple embolic strokes LV thrombus Plan continue iv heparin. Will require detention anticoagulation--start coumadin when ok with primary service Diagnosis/Plan: Subjective Subjective Comments No acute events reported Active Medications Current Medications Medications (Trade) Dose Ordered Sig/Nereida Route Start Time Stop Time Status Last Admin (NS Flush) 2 ml UNSCH PRN IVF 01/05/17 13:45 (Duoneb Neb) 1 ampule Q2HR NEB PRN INH 01/05/17 15:30 01/10/17 00:25 Miscellaneous Information 1 Q361D XX 01/05/17 15:30 (Chlorhexidine 2% Cloth) Taper DAILY@04 TOP 01/06/17 04:00 01/02/18 03:59 01/11/17 04:00 (Chlorhexidine 2% Cloth) 3 pack UNSCH PRN TOP 01/05/17 15:30 (Giovana-Colace) 1 tab BID PO 01/05/17 21:00 01/11/17 09:50 (Milk Of Magnesia Liq) 30 ml Q12H PRN PO 01/05/17 15:30 (Senokot) 17.2 mg Q12H PRN PO 01/05/17 15:30 (Dulcolax Supp) 10 mg DAILY PRN RECTAL 01/05/17 15:30 (Lactulose Liq) 30 ml DAILY PRN PO 01/05/17 15:30 (Apresoline Inj) 20 mg Q4H PRN IV PUSH 01/06/17 01:30 01/07/17 16:26 (D50w (Vial) Inj) 50 ml UNSCH PRN IV PUSH 01/06/17 10:30 (Glucagon Inj) 1 mg UNSCH PRN OTHER 01/06/17 10:30 (NovoLIN R SUPPLEMENTAL SCALE) 1 Q4HR SQ 01/06/17 12:00 01/11/17 12:00 (Aspirin Chew) 81 mg DAILY CHEW 01/07/17 09:00 01/11/17 09:50 Potassium Chloride 100 ml @ 50 mls/hr Q2H PRN IV 01/07/17 10:45 Potassium Chloride 100 ml @ 50 mls/hr Q2H PRN IV 01/07/17 10:45 01/11/17 15:50 (K-Lyte Cl Eff) 50 meq UNSCH PRN PO 01/07/17 10:45 Potassium Chloride 100 ml @ 25 mls/hr UNSCH PRN IV 01/07/17 10:45 Potassium Chloride 100 ml @ 50 mls/hr Q2H PRN IV 01/07/17 10:45 Magnesium Sulfate 4 gm/Sodium Chloride 100 ml @ 50 mls/hr UNSCH PRN IV 01/07/17 10:45 (Mag-Ox) 800 mg UNSCH PRN PO 01/07/17 10:45 Magnesium Sulfate 2 gm/Sodium Chloride 100 ml @ 50 mls/hr UNSCH PRN IV 01/07/17 10:45 (K-Phos) 2,000 mg Q4H PRN PO 01/07/17 10:45 01/10/17 01:41 Sodium Phosphate 30 mmol/Sodium Chloride 250 ml @ 42 mls/hr UNSCH PRN IV 01/07/17 10:45 (K-Phos) 2,000 mg UNSCH PRN PO/TUBE 01/07/17 10:45 Potassium Phosphate 30 mmol/ Sodium Chloride 260 ml @ 42 mls/hr UNSCH PRN IV 01/07/17 10:45 01/09/17 09:22 (Levemir Inj) 15 units Q12HR SQ 01/08/17 21:00 01/11/17 09:00 (Pill Splitter) 1 ea UNSCH PRN OTHER 01/08/17 10:00 Heparin Sodium/ Dextrose 250 ml @ 8 mls/hr TITRATE PRN IV 01/08/17 17:00 01/11/17 01:29 (Lopressor) 50 mg Q6HR PO 01/09/17 06:00 01/11/17 12:13 Piperacillin Sod/ Tazobactam Sod 50 ml @ 100 mls/hr Q6HR IV 01/09/17 12:00 01/11/17 18:12 (Free Water) VOLUME OF WATER: ( 300 ) ML Q4HR NG 01/11/17 12:00 01/11/17 15:51 Dextrose 1,000 ml @ 100 mls/hr Q10H IV 01/11/17 11:00 Sodium Chloride 38.5 meq/Sterile Water 1,009.625 ml @ 100 mls/hr Q10H6M IV 01/11/17 11:00 01/11/17 12:10 (Duoneb Neb) 1 ampule Q6HR NEB NEB 01/11/17 16:00 01/11/17 15:23 Allergies Allergies Coded Allergies No Allergy Information Available ([id number]/24/17) Exam I&O / VS 01/11/17 01/11/17 01/12/17 15:00 23:00 07:00 Intake Total 962 ml Output Total 1800 ml Balance -838 ml Tube Feeding 362 ml Other 600 ml Output Urine Total 1800 ml # Bowel Movements 7 Vital Signs Date Time Temp Pulse Resp B/P (MAP) Pulse Ox O2 Delivery O2 Flow Rate FiO2 01/11/17 18:00 94 01/11/17 18:00 94 36 93/60 (71) 92 01/11/17 17:01 95 38 90/63 (72) 89 01/11/17 16:00 117 48 165/85 (111) 89 01/11/17 15:00 92 36 86/54 (65) 93 01/11/17 14:00 90 35 86/61 (69) 93 01/11/17 13:00 81 01/11/17 13:00 81 33 109/64 (79) 94 01/11/17 12:00 101 36 111/56 (74) 97 01/11/17 12:00 101 01/11/17 11:00 94 31 108/59 (75) 93 01/11/17 11:00 94 01/11/17 10:00 99 01/11/17 10:00 99 33 139/74 (95) 94 01/11/17 09:05 92 Nasal Cannula 5.00 01/11/17 09:00 100 32 146/72 (96) 90 01/11/17 09:00 100 01/11/17 08:00 93 01/11/17 08:00 93 31 133/70 (91) 91 01/11/17 06:00 79 01/11/17 04:00 99 01/11/17 04:00 98.6 99 34 137/74 (95) 91 01/11/17 02:00 92 01/11/17 00:00 109 01/11/17 00:00 98.6 109 34 160/83 (108) 91 01/10/17 22:00 98 01/10/17 20:00 95 01/10/17 20:00 98.7 95 36 117/62 (80) 97 Exam Comments lethargic and arousable. minimal speech. follows simple commands CN intact. MOTOR--generalized weakness Objective Micro and Labs Laboratory Tests Test 01/11/17 06:05 01/11/17 12:16 01/11/17 14:50 01/11/17 17:44 White Blood Count 12.0 Red Blood Count 4.48 Hemoglobin 13.0 Hematocrit 38.4 Mean Corpuscular Volume 85.6 Mean Corpuscular Hemoglobin 29.0 Mean Corpuscular Hemoglobin Concent 33.9 Red Cell Distribution Width 13.3 Platelet Count 126 Mean Platelet Volume 10.4 Neutrophils (%) (Auto) 80.0 Lymphocytes (%) (Auto) 8.8 Monocytes (%) (Auto) 11.0 Eosinophils (%) (Auto) 0.1 Basophils (%) (Auto) 0.1 Neutrophils # (Auto) 9.6 Lymphocytes # (Auto) 1.1 Monocytes # (Auto) 1.3 Eosinophils # (Auto) 0.0 Basophils # (Auto) 0.0 CBC Comment AUTO DIFF Differential Total Cells Counted 100 Neutrophils % (Manual) 62 Band Neutrophils % 18 Lymphocytes % 12 Monocytes % 7 Neutrophils # (Manual) 9.6 Differential Comment FINAL DIFF MANUAL Blastocytes 1 Toxic Granulation 1+ Dohle Bodies PRESENT Platelet Estimate LOW Platelet Morphology Comment ENLARGED Blood Urea Nitrogen 39 Creatinine 1.53 Random Glucose 153 Total Protein 6.0 Albumin 1.5 Calcium Level 7.2 Magnesium Level 2.5 Alkaline Phosphatase 118 Aspartate Amino Transf (AST/SGOT) 83 Alanine Aminotransferase (ALT/SGPT) 55 Total Bilirubin 0.8 Sodium Level 158 Potassium Level 3.3 Chloride Level 124 Carbon Dioxide Level 27.5 Anion Gap 7 Estimat Glomerular Filtration Rate 59 Protein Corrected Calcium 7.8 Activated Partial Thromboplast Time 36.2 38.3 Date/Time Source Procedure Growth Status 01/09/17 11:29 Blood Peripheral Aerobic Blood Culture - Preliminary NO GROWTH IN 2 DAYS Resulted 01/09/17 11:29 Blood Peripheral Anaerobic Blood Culture - Preliminary NO GROWTH IN 2 DAYS Resulted 01/09/17 11:00 Sputum Expectorated Sputum Gram Stain - Final Complete 01/09/17 11:00 Sputum Culture - Final Klebsiella Pneumoniae Beta Strep Not Group A Complete 01/09/17 10:45 Urine Catheterized Urine Urine Culture - Final NO GROWTH IN 48 HOURS. Complete Solitario Mercado PhD Jan 11, 2017 19:45
[2017-01-11 20:33] LABS: C. DIFF EPI 027 PRESUMPTIVE NEGATIVE (NEGATIVE)
--- NOTE | 2017-01-11 21:35 | PD.CARD.PN ---
Subjective Subjective Remarks More awake, answers questions but slow to answer Spiking temperatures Objective Medications Current Medications Medications (Trade) Dose Ordered Sig/Nereida Route Start Time Stop Time Status Last Admin (NS Flush) 2 ml UNSCH PRN IVF 01/05/17 13:45 (Duoneb Neb) 1 ampule Q2HR NEB PRN INH 01/05/17 15:30 01/10/17 00:25 Miscellaneous Information 1 Q361D XX 01/05/17 15:30 (Chlorhexidine 2% Cloth) Taper DAILY@04 TOP 01/06/17 04:00 01/02/18 03:59 01/11/17 04:00 (Chlorhexidine 2% Cloth) 3 pack UNSCH PRN TOP 01/05/17 15:30 (Giovana-Colace) 1 tab BID PO 01/05/17 21:00 01/11/17 09:50 (Milk Of Magnesia Liq) 30 ml Q12H PRN PO 01/05/17 15:30 (Senokot) 17.2 mg Q12H PRN PO 01/05/17 15:30 (Dulcolax Supp) 10 mg DAILY PRN RECTAL 01/05/17 15:30 (Lactulose Liq) 30 ml DAILY PRN PO 01/05/17 15:30 (Apresoline Inj) 20 mg Q4H PRN IV PUSH 01/06/17 01:30 01/07/17 16:26 (D50w (Vial) Inj) 50 ml UNSCH PRN IV PUSH 01/06/17 10:30 (Glucagon Inj) 1 mg UNSCH PRN OTHER 01/06/17 10:30 (NovoLIN R SUPPLEMENTAL SCALE) 1 Q4HR SQ 01/06/17 12:00 01/11/17 12:00 (Aspirin Chew) 81 mg DAILY CHEW 01/07/17 09:00 01/11/17 09:50 Potassium Chloride 100 ml @ 50 mls/hr Q2H PRN IV 01/07/17 10:45 Potassium Chloride 100 ml @ 50 mls/hr Q2H PRN IV 01/07/17 10:45 01/11/17 15:50 (K-Lyte Cl Eff) 50 meq UNSCH PRN PO 01/07/17 10:45 Potassium Chloride 100 ml @ 25 mls/hr UNSCH PRN IV 01/07/17 10:45 Potassium Chloride 100 ml @ 50 mls/hr Q2H PRN IV 01/07/17 10:45 Magnesium Sulfate 4 gm/Sodium Chloride 100 ml @ 50 mls/hr UNSCH PRN IV 01/07/17 10:45 (Mag-Ox) 800 mg UNSCH PRN PO 01/07/17 10:45 Magnesium Sulfate 2 gm/Sodium Chloride 100 ml @ 50 mls/hr UNSCH PRN IV 01/07/17 10:45 (K-Phos) 2,000 mg Q4H PRN PO 01/07/17 10:45 01/10/17 01:41 Sodium Phosphate 30 mmol/Sodium Chloride 250 ml @ 42 mls/hr UNSCH PRN IV 01/07/17 10:45 (K-Phos) 2,000 mg UNSCH PRN PO/TUBE 01/07/17 10:45 Potassium Phosphate 30 mmol/ Sodium Chloride 260 ml @ 42 mls/hr UNSCH PRN IV 01/07/17 10:45 01/09/17 09:22 (Levemir Inj) 15 units Q12HR SQ 01/08/17 21:00 01/11/17 09:00 (Pill Splitter) 1 ea UNSCH PRN OTHER 01/08/17 10:00 Heparin Sodium/ Dextrose 250 ml @ 8 mls/hr TITRATE PRN IV 01/08/17 17:00 01/11/17 01:29 (Lopressor) 50 mg Q6HR PO 01/09/17 06:00 01/11/17 12:13 Piperacillin Sod/ Tazobactam Sod 50 ml @ 100 mls/hr Q6HR IV 01/09/17 12:00 01/11/17 18:12 (Free Water) VOLUME OF WATER: ( 300 ) ML Q4HR NG 01/11/17 12:00 01/11/17 15:51 Dextrose 1,000 ml @ 100 mls/hr Q10H IV 01/11/17 11:00 Sodium Chloride 38.5 meq/Sterile Water 1,009.625 ml @ 100 mls/hr Q10H6M IV 01/11/17 11:00 01/11/17 12:10 (Duoneb Neb) 1 ampule Q6HR NEB NEB 01/11/17 16:00 01/11/17 21:04 Vital Signs / I&O Vital Signs Date Time Temp Pulse Resp B/P (MAP) Pulse Ox O2 Delivery O2 Flow Rate FiO2 01/11/17 21:04 90 Nasal Cannula 5.00 01/11/17 18:00 94 01/11/17 18:00 94 36 93/60 (71) 92 01/11/17 17:01 95 38 90/63 (72) 89 01/11/17 16:00 117 48 165/85 (111) 89 01/11/17 15:00 92 36 86/54 (65) 93 01/11/17 14:00 90 35 86/61 (69) 93 01/11/17 13:00 81 01/11/17 13:00 81 33 109/64 (79) 94 01/11/17 12:00 101 36 111/56 (74) 97 01/11/17 12:00 101 01/11/17 11:00 94 31 108/59 (75) 93 01/11/17 11:00 94 01/11/17 10:00 99 01/11/17 10:00 99 33 139/74 (95) 94 01/11/17 09:05 92 Nasal Cannula 5.00 01/11/17 09:00 100 32 146/72 (96) 90 01/11/17 09:00 100 01/11/17 08:00 93 01/11/17 08:00 93 31 133/70 (91) 91 01/11/17 06:00 79 01/11/17 04:00 99 01/11/17 04:00 98.6 99 34 137/74 (95) 91 01/11/17 02:00 92 01/11/17 00:00 109 01/11/17 00:00 98.6 109 34 160/83 (108) 91 01/10/17 22:00 98 I/O 01/10/17 01/10/17 01/10/17 01/11/17 01/11/17 01/11/17 07:00 15:00 23:00 07:00 15:00 23:00 Intake Total 1775 ml 400 ml 1410 ml 802 ml 962 ml Output Total 1550 ml 850.0 ml 450 ml 1800 ml Balance 225 ml 400 ml 560.0 ml 352 ml -838 ml Intake IV Total 650 ml 400 ml 350 ml 350 ml Tube Feeding 475 ml 460 ml 452 ml 362 ml Other 650 ml 600 ml 600 ml Output Urine Total 1550 ml 850 ml 450 ml 1800 ml Tube Feeding Residual Discard 0 ml # Voids 3 # Bowel Movements 3 7 5 7 Physical Exam GENERAL: NAD SKIN: Warm and dry. HEAD: Atraumatic. Normocephalic. EYES: Pupils equal and round. No scleral icterus. No injection or drainage. ENT: No nasal bleeding or discharge. Mucous membranes pink and moist. NECK: Trachea midline. No JVD. CARDIOVASCULAR: Tachycardic RESPIRATORY: No accessory muscle use. Clear to auscultation. Breath sounds equal bilaterally. GASTROINTESTINAL: Abdomen soft, non-tender, nondistended. Hepatic and splenic margins not palpable. MUSCULOSKELETAL: Extremities without clubbing, cyanosis, or edema. No obvious deformities. NEUROLOGICAL: Awake, alert Laboratory Laboratory Tests Test 01/11/17 06:05 01/11/17 12:16 01/11/17 14:50 01/11/17 17:44 White Blood Count 12.0 TH/MM3 Red Blood Count 4.48 MIL/MM3 Hemoglobin 13.0 GM/DL Hematocrit 38.4 % Mean Corpuscular Volume 85.6 FL Mean Corpuscular Hemoglobin 29.0 PG Mean Corpuscular Hemoglobin Concent 33.9 % Red Cell Distribution Width 13.3 % Platelet Count 126 TH/MM3 Mean Platelet Volume 10.4 FL Neutrophils (%) (Auto) 80.0 % Lymphocytes (%) (Auto) 8.8 % Monocytes (%) (Auto) 11.0 % Eosinophils (%) (Auto) 0.1 % Basophils (%) (Auto) 0.1 % Neutrophils # (Auto) 9.6 TH/MM3 Lymphocytes # (Auto) 1.1 TH/MM3 Monocytes # (Auto) 1.3 TH/MM3 Eosinophils # (Auto) 0.0 TH/MM3 Basophils # (Auto) 0.0 TH/MM3 CBC Comment AUTO DIFF Differential Total Cells Counted 100 Neutrophils % (Manual) 62 % Band Neutrophils % 18 % Lymphocytes % 12 % Monocytes % 7 % Neutrophils # (Manual) 9.6 TH/MM3 Differential Comment FINAL DIFF MANUAL Blastocytes 1 % Toxic Granulation 1+ Dohle Bodies PRESENT Platelet Estimate LOW Platelet Morphology Comment ENLARGED Blood Urea Nitrogen 39 MG/DL Creatinine 1.53 MG/DL Random Glucose 153 MG/DL Total Protein 6.0 GM/DL Albumin 1.5 GM/DL Calcium Level 7.2 MG/DL Magnesium Level 2.5 MG/DL Alkaline Phosphatase 118 U/L Aspartate Amino Transf (AST/SGOT) 83 U/L Alanine Aminotransferase (ALT/SGPT) 55 U/L Total Bilirubin 0.8 MG/DL Sodium Level 158 MEQ/L Potassium Level 3.3 MEQ/L Chloride Level 124 MEQ/L Carbon Dioxide Level 27.5 MEQ/L Anion Gap 7 MEQ/L Estimat Glomerular Filtration Rate 59 ML/MIN Protein Corrected Calcium 7.8 MG/DL Activated Partial Thromboplast Time 36.2 SEC 38.3 SEC Stool C. difficile Toxin (PCR) NEGATIVE Stl C. difficile Toxin Epiderm 027 PRESUMPTIVE NEGATIVE Imaging Last 24 hours Impressions Chest X-Ray 01/11/17 0600 Signed Impressions: Service Date/Time: , January 11, 2017 03:53 - CONCLUSION: Mild bibasilar areas of consolidation or atelectasis. Lele Chung MD Assessment and Plan Problem List: (1) Elevated troponin ICD Codes: R74.8 - Abnormal levels of other serum enzymes (2) Abnormal EKG ICD Codes: R94.31 - Abnormal electrocardiogram [ECG] [EKG] (3) Diabetic ketoacidosis ICD Codes: E13.10 - Other specified diabetes mellitus with ketoacidosis without coma Status: Resolved (4) Acute renal failure ICD Codes: N17.9 - Acute kidney failure, unspecified Status: Acute (5) Leukocytosis ICD Codes: D72.829 - Elevated white blood cell count, unspecified Status: Acute (6) Hyperkalemia ICD Codes: E87.5 - Hyperkalemia Status: Resolved Assessment and Plan 1) DKA resolving 2) Trop mildly elevated 3) CVA on MRI Concern for cardioembolic process LV thrombus noted on echo 4) No catheterization with recent CVA 5) Discussed with critical care Started on heparin, will need transfer to PO anticoagulation 6) Will see PRN, call with questions Walter Grant DO Jan 11, 2017 21:35
[2017-01-12] VITALS (18 sets, daily range): BP systolic 101–156; BP diastolic 56–89; PULSE 84–108; RESP 26–30; TEMP 98–98.3; O2SAT 71–100
[2017-01-12] MEDS: PIPERACIL-TAZO 3.375 GM PREMIX 50 ML IV SCH ×4 (00:32→17:18)
[2017-01-12 01:53] LABS: APTT (PATIENT) 47.3 SEC (24.3-30.1)
[2017-01-12] MEDS: HEPARIN-D5W 25,000 U/250 ML 250 ML IV PRN (03:03)
[2017-01-12] MEDS: RESP: ALBUTEROL 2.5 MG/IPRATROPIUM 0.5 MG NEB (SCH) NEB ×4 (03:51→19:36)
[2017-01-12] MEDS: FREE WATER NG SCH ×6 (04:00→19:18)
[2017-01-12] MEDS: INSULIN NovoLIN REGULAR SUPPLEMENTAL SCALE SQ SCH ×6 (04:00→20:38)
[2017-01-12] MEDS: CHLORHEXIDINE GLUCONATE 2 % 1 PACK (2 CLOTHS) TOP SCH (04:00)
[2017-01-12] MEDS: METOPROLOL TARTRATE 50 MG TAB PO SCH ×4 (04:58→17:18)
[2017-01-12 06:25] LABS: APTT (PATIENT) 49.7 SEC (24.3-30.1)
[2017-01-12] MEDS: DEXTROSE 5% IN WATE 1000ML INJ 1,000 ML IV SCH (07:00)
--- NOTE | 2017-01-12 08:06 | RADRPT ---
EXAM DATE/TIME: 01/12/2017 07:30 [place] COMPARISON: CHEST SINGLE AP, January 11, 2017, 3:53. INDICATIONS : Possible aspiration. Shortness of breath. MEDICAL HISTORY : Diabetes mellitus type I. Hypertension. SURGICAL HISTORY : None. ENCOUNTER: Subsequent ACUITY: 1 day PAIN SCORE: Non-responsive. LOCATION: Bilateral chest FINDINGS: A single portable frontal view of the chest shows a persistent consolidation within the left lung bas e. Air bronchograms noted. A much smaller area consolidation seen within the right base. No effusions . Heart is normal in size. The degenerative thoracic spine. CONCLUSION: Unchanged bibasilar consolidations felt to relate to infectious infiltrates. Gama Rivers Jr., MD on January 12, 2017 at 7:53 Board Certified Radiologist. This report was verified electronically.
[2017-01-12] MEDS: DOCUSATE SODIUM 50 MG/SENNA 8.6 MG TAB PO SCH ×2 (09:00→20:37)
[2017-01-12] MEDS: ASPIRIN 81 MG CHEW TAB CHEW SCH (09:00)
[2017-01-12] MEDS: INSULIN DETEMIR 100 UNITS/ML VIAL SQ SCH ×2 (09:00→20:37)
[2017-01-12] MEDS: SODIUM CHLORIDE 23.4% INJ 38.5 MEQ in WATER STERILE FOR INJ 1,000 ML IV SCH ×2 (10:05→17:18)
[2017-01-12 10:20] LABS: AUTOMATED NEUTROPHIL # 10.8 TH/MM3 (1.8-7.7); BASOPHIL % 0.2 % (0.0-2.0); EOSINOPHIL % 0.3 % (0.0-4.0); HEMATOCRIT 36.1 % (39.0-51.0); LYMPH % 14.4 % (9.0-44.0); MEAN CELL VOLUME 85.8 FL (80.0-100.0); MEAN CORPUSCULAR HEMOGLOBIN 28.5 PG (27.0-34.0); MEAN CORPUSCULAR HGB CONC 33.2 % (32.0-36.0); MONO % 8.5 % (0.0-8.0); NEUT % 76.6 % (16.0-70.0); PLATELET COUNT 146 TH/MM3 (150-450); RED BLOOD COUNT 4.21 MIL/MM3 (4.50-5.90); RED CELL DISTRIBUTION WIDTH 13.3 % (11.6-17.2); WHITE BLOOD COUNT 14.2 TH/MM3 (4.0-11.0)
[2017-01-12 10:24] LABS: HEMO FLAGS AUTO DIFF
[2017-01-12 11:02] LABS: BICARBONATE 29.5 MEQ/L (21.0-32.0)
[2017-01-12 11:03] LABS: BANDS 17 % (0-6); METAMYELOCYTES 1 % (0-1); NEUTROPHIL # MANUAL DIFF 10.9 TH/MM3 (1.8-7.7); PLASMA CELLS 1 % (0-0); POLYS (SEG NEUTROPHILS) 59 % (16-70); WBC DIFF SAMPLE 100
[2017-01-12 11:04] LABS: PLATELET ESTIMATE SMEAR LOW (NORMAL); PLATELET MORPHOLOGY NORMAL (NORMAL); SCAN/DIFF FINAL DIFF MANUAL; TOXIC GRANULATION 2+ (NORMAL)
[2017-01-12 11:20] LABS: CALCIUM-PROTEIN CORRECTED 7.8 MG/DL (8.5-10.1)
--- NOTE | 2017-01-12 18:24 | HHI.PR ---
Review/Management Diagnosis multiple embolic strokes LV thrombus Plan continue iv heparin. Will require senior living anticoagulation--start coumadin when ok with primary service Diagnosis/Plan: Subjective Subjective Comments No acute events reported Active Medications Current Medications Medications (Trade) Dose Ordered Sig/Nereida Route Start Time Stop Time Status Last Admin (NS Flush) 2 ml UNSCH PRN IVF 01/05/17 13:45 (Duoneb Neb) 1 ampule Q2HR NEB PRN INH 01/05/17 15:30 01/10/17 00:25 Miscellaneous Information 1 Q361D XX 01/05/17 15:30 (Chlorhexidine 2% Cloth) Taper DAILY@04 TOP 01/06/17 04:00 01/02/18 03:59 01/12/17 04:00 (Chlorhexidine 2% Cloth) 3 pack UNSCH PRN TOP 01/05/17 15:30 (Giovana-Colace) 1 tab BID PO 01/05/17 21:00 01/11/17 09:50 (Milk Of Magnesia Liq) 30 ml Q12H PRN PO 01/05/17 15:30 (Senokot) 17.2 mg Q12H PRN PO 01/05/17 15:30 (Dulcolax Supp) 10 mg DAILY PRN RECTAL 01/05/17 15:30 (Lactulose Liq) 30 ml DAILY PRN PO 01/05/17 15:30 (Apresoline Inj) 20 mg Q4H PRN IV PUSH 01/06/17 01:30 01/07/17 16:26 (D50w (Vial) Inj) 50 ml UNSCH PRN IV PUSH 01/06/17 10:30 (Glucagon Inj) 1 mg UNSCH PRN OTHER 01/06/17 10:30 (NovoLIN R SUPPLEMENTAL SCALE) 1 Q4HR SQ 01/06/17 12:00 01/12/17 16:00 (Aspirin Chew) 81 mg DAILY CHEW 01/07/17 09:00 01/11/17 09:50 Potassium Chloride 100 ml @ 50 mls/hr Q2H PRN IV 01/07/17 10:45 Potassium Chloride 100 ml @ 50 mls/hr Q2H PRN IV 01/07/17 10:45 01/11/17 15:50 (K-Lyte Cl Eff) 50 meq UNSCH PRN PO 01/07/17 10:45 Potassium Chloride 100 ml @ 25 mls/hr UNSCH PRN IV 01/07/17 10:45 Potassium Chloride 100 ml @ 50 mls/hr Q2H PRN IV 01/07/17 10:45 Magnesium Sulfate 4 gm/Sodium Chloride 100 ml @ 50 mls/hr UNSCH PRN IV 01/07/17 10:45 (Mag-Ox) 800 mg UNSCH PRN PO 01/07/17 10:45 Magnesium Sulfate 2 gm/Sodium Chloride 100 ml @ 50 mls/hr UNSCH PRN IV 01/07/17 10:45 (K-Phos) 2,000 mg Q4H PRN PO 01/07/17 10:45 01/10/17 01:41 Sodium Phosphate 30 mmol/Sodium Chloride 250 ml @ 42 mls/hr UNSCH PRN IV 01/07/17 10:45 (K-Phos) 2,000 mg UNSCH PRN PO/TUBE 01/07/17 10:45 Potassium Phosphate 30 mmol/ Sodium Chloride 260 ml @ 42 mls/hr UNSCH PRN IV 01/07/17 10:45 01/09/17 09:22 (Levemir Inj) 15 units Q12HR SQ 01/08/17 21:00 01/11/17 21:00 (Pill Splitter) 1 ea UNSCH PRN OTHER 01/08/17 10:00 Heparin Sodium/ Dextrose 250 ml @ 8 mls/hr TITRATE PRN IV 01/08/17 17:00 01/12/17 03:03 (Lopressor) 50 mg Q6HR PO 01/09/17 06:00 01/12/17 17:18 Piperacillin Sod/ Tazobactam Sod 50 ml @ 100 mls/hr Q6HR IV 01/09/17 12:00 01/12/17 17:18 (Free Water) VOLUME OF WATER: ( 300 ) ML Q4HR NG 01/11/17 12:00 01/11/17 15:51 Sodium Chloride 38.5 meq/Sterile Water 1,009.625 ml @ 100 mls/hr Q10H6M IV 01/11/17 11:00 01/12/17 10:05 (Duoneb Neb) 1 ampule Q6HR NEB NEB 01/11/17 16:00 01/12/17 15:06 Allergies Allergies Coded Allergies No Allergy Information Available (Xaxhdvarqm15/24/17) Exam I&O / VS 01/12/17 01/12/17 01/13/17 15:00 23:00 07:00 Intake Total 950 ml Balance 950 ml Intake Oral 950 ml # Voids 6 # Bowel Movements 2 Vital Signs Date Time Temp Pulse Resp B/P (MAP) Pulse Ox O2 Delivery O2 Flow Rate FiO2 01/12/17 18:00 87 01/12/17 17:05 95 29 127/69 (88) 100 01/12/17 17:05 95 01/12/17 16:00 96 01/12/17 16:00 96 28 100 01/12/17 14:00 84 01/12/17 13:00 85 01/12/17 13:00 85 29 134/78 (96) 100 01/12/17 12:00 102 26 149/83 (105) 100 01/12/17 12:00 102 01/12/17 11:01 108 156/89 (111) 71 01/12/17 11:01 108 01/12/17 10:30 97 Nasal Cannula 6.00 01/12/17 10:00 87 01/12/17 10:00 87 27 139/72 (94) 87 01/12/17 09:00 88 01/12/17 09:00 88 29 133/72 (92) 79 01/12/17 08:00 86 01/12/17 08:00 86 27 132/72 (92) 98 01/12/17 06:00 86 01/12/17 04:00 98.3 87 29 101/57 (72) 96 01/12/17 04:00 87 01/12/17 02:00 88 01/12/17 00:00 98.3 92 30 103/56 (72) 96 01/12/17 00:00 92 01/11/17 22:00 100 01/11/17 21:25 93 Simple Mask 6.00 01/11/17 21:04 90 Nasal Cannula 5.00 01/11/17 20:00 98.3 96 38 114/64 (81) 88 01/11/17 20:00 96 Exam Comments More alert, follows commands. Speech dysarthric. CN intact. MOTOR--moves BUE equally Objective Micro and Labs Laboratory Tests Test 01/12/17 01:30 01/12/17 05:55 01/12/17 09:50 Activated Partial Thromboplast Time 47.3 49.7 White Blood Count 14.2 Red Blood Count 4.21 Hemoglobin 12.0 Hematocrit 36.1 Mean Corpuscular Volume 85.8 Mean Corpuscular Hemoglobin 28.5 Mean Corpuscular Hemoglobin Concent 33.2 Red Cell Distribution Width 13.3 Platelet Count 146 Mean Platelet Volume 10.4 Neutrophils (%) (Auto) 76.6 Lymphocytes (%) (Auto) 14.4 Monocytes (%) (Auto) 8.5 Eosinophils (%) (Auto) 0.3 Basophils (%) (Auto) 0.2 Neutrophils # (Auto) 10.8 Lymphocytes # (Auto) 2.0 Monocytes # (Auto) 1.2 Eosinophils # (Auto) 0.0 Basophils # (Auto) 0.0 CBC Comment AUTO DIFF Differential Total Cells Counted 100 Neutrophils % (Manual) 59 Band Neutrophils % 17 Lymphocytes % 17 Monocytes % 5 Neutrophils # (Manual) 10.9 Metamyelocytes 1 Differential Comment FINAL DIFF MANUAL Plasma Cells 1 Toxic Granulation 2+ Platelet Estimate LOW Platelet Morphology Comment NORMAL Blood Urea Nitrogen 34 Creatinine 1.67 Random Glucose 95 Total Protein 6.0 Calcium Level 7.2 Sodium Level 158 Potassium Level 3.0 Chloride Level 121 Carbon Dioxide Level 29.5 Anion Gap 8 Estimat Glomerular Filtration Rate 53 Protein Corrected Calcium 7.8 B-Type Natriuretic Peptide 155 Date/Time Source Procedure Growth Status 01/09/17 11:29 Blood Peripheral Aerobic Blood Culture - Preliminary NO GROWTH IN 3 DAYS Resulted 01/09/17 11:29 Blood Peripheral Anaerobic Blood Culture - Preliminary NO GROWTH IN 3 DAYS Resulted 01/09/17 11:00 Sputum Expectorated Sputum Gram Stain - Final Complete 01/09/17 11:00 Sputum Culture - Final Klebsiella Pneumoniae Beta Strep Not Group A Complete 01/09/17 10:45 Urine Catheterized Urine Urine Culture - Final NO GROWTH IN 48 HOURS. Complete Solitario Mercado PhD Jan 12, 2017 18:24
--- NOTE | 2017-01-12 19:27 | HHI.CCPN ---
Subjective Remarks/Hospital Course The patient is a 66-year-old male with past medical history of hypertension, peripheral vascular disease, type 2 diabetes mellitus who presented to [facility] emergency department for altered mental status. According to the patient's sister the last time she saw him was five days ago, she called the fire department today to check on him and when they arrived they saw the patient sitting in the bathroom not sure for how long and was unresponsive. The patient was altered and unable to give any history. His blood sugar at the scene was too high to register the and they started IV fluids and transferred into the emergency department. In the emergency room the patient was found to be in DKA and renal failure. His BMP showed severe hyperglycemia with a blood sugar of 1116 with severe metabolic acidosis and acute renal failure. His creatinine 5.0 with a BUN 68 in addition the patient was hyperkalemic with a potassium level 7.9 and a bicarb of 8.8. ABG showed severe metabolic acidosis with a pH of 7.12, CO2 21, pAO2 322, bicarb seven and saturation of 97%. Other significant labs on arrival showed lactic acidemia with elevated lactic acid level of 5.5 and elevated lipase level of 3507. His beta-hydroxybutyrate was measured at 11.4. Most of the history was obtained from the review of reviewing medical records and from my discussion with a sister who was present at the bedside. A chest x-ray In the emergency department showed no evidence of any acute cardiopulmonary disease. When seen in the emergency room the patient slowly responded to some the questions that was asked, He denies any abdominal pain, nausea or vomiting. In the emergency department was given 3 liters of crystalloids along with insulin 7.5 and units IV push and 1 gram of calcium chloride. He was placed on insulin drip in addition to amps of sodium bicarb was ordered. 01/06 Patient was on insulin drip 18u/hr overnight AG closed (13)this morning. Lactic acid resolved 1.1 from 5.5 on arrival. 01/07 No events overnight. Off insulin drip. Afebrile. Renal function is improving with Cr: 1.97 today, Na 150 from 155. 01/08 Patient is on 9L simple mask, renal function continue to improve with Cr: 1.52 from 1.97. MRI brain yesterday showed acute nonhemorrhagic infarction in the left superior cerebellum involving the folia measured 1.6 cm. Several small areas of infarction in the left frontal white matter in an end vessel distribution. 01/09 Patient is on 4L oxygen with good sats. T:99.9 Started on Heparin drip yesterday ( Echo showed LV apical thrombus) Repeat CT brain yesterday negative for bleed. 01/10: Mildly tachypneic today. Febrile overnight Tmax 101.6. Na 153. Cultures are pending 01/11: Appears to be in moderate respiratory distress today, difficulty with clearing secretions. Chest x-ray shows some pulmonary vascular congestion and basilar infiltrates, sputum culture with GNR. Sodium elevated at 158 increased from yesterday 153. Started 02/15 saline at 100 ML per hour, increased the water flushes. Afebrile today Subjective 01/12: Afebrile. Passed swallow evaluation today currently on a pured ADA diet. No acute issues overnight. Objective Vital Signs Date Time Temp Pulse Resp B/P (MAP) Pulse Ox O2 Delivery O2 Flow Rate FiO2 01/12/17 18:00 87 01/12/17 17:05 29 127/69 (88) 100 01/12/17 10:30 Nasal Cannula 6.00 01/12/17 04:00 98.3 Intake and Output 01/12/17 01/12/17 01/13/17 08:00 16:00 00:00 Intake Total 2082 ml 950 ml Balance 2082 ml 950 ml Result Diagram: 01/12/17 0950 01/12/17 0950 Other Results Microbiology Date/Time Source Procedure Growth Status 01/09/17 11:29 Blood Peripheral Aerobic Blood Culture - Preliminary NO GROWTH IN 3 DAYS Resulted 01/09/17 11:29 Blood Peripheral Anaerobic Blood Culture - Preliminary NO GROWTH IN 3 DAYS Resulted 01/09/17 11:00 Sputum Expectorated Sputum Gram Stain - Final Complete 01/09/17 11:00 Sputum Culture - Final Klebsiella Pneumoniae Beta Strep Not Group A Complete 01/09/17 10:45 Urine Catheterized Urine Urine Culture - Final NO GROWTH IN 48 HOURS. Complete Imaging Last Impressions Chest X-Ray 01/12/17 0000 Signed Impressions: Service Date/Time: Thursday, January 12, 2017 07:30 - CONCLUSION: Unchanged bibasilar consolidations felt to relate to infectious infiltrates. Gama Rivers Jr., MD Head CT 01/08/17 0000 Signed Impressions: Service Date/Time: Sunday, January 08, 2017 16:17 - CONCLUSION: Evolving left cerebellar stroke. No evidence of hemorrhage. Nasogastric tube is coiled in the pharynx Lele Klein MD Carotid Artery Ultrasound 01/07/17 0000 Signed Impressions: Service Date/Time: Saturday, January 07, 2017 17:27 - CONCLUSION: 1. Mild visible plaque formation without hemodynamically significant stenosis. Michael Rhoades MD Brain MRI 01/07/17 0000 Signed Impressions: Service Date/Time: Saturday, January 07, 2017 13:44 - CONCLUSION: 1. Acute nonhemorrhagic infarction in the left superior cerebellum involving the folia measured 1.6 cm. 2. Several small areas of infarction in the left frontal white matter in an end vessel distribution. Gama Calderon MD Liver Ultrasound 01/06/17 0000 Signed Impressions: Service Date/Time: Friday, January 06, 2017 10:40 - CONCLUSION: 1. No acute findings. No free fluid. No gallstones or right-sided hydronephrosis. Mild fatty liver. Michael Rhoades MD Abdomen/Pelvis CT 01/05/17 0000 Signed Impressions: Service Date/Time: Thursday, January 05, 2017 16:38 - CONCLUSION: 1. No acute abnormality observed. In particular, no appreciable inflammatory process involving the pancreas. The pancreas is somewhat blurred by breathing motion artifact limiting its evaluation. 2. Colonic diverticulosis without acute inflammation. Gama Rivers Jr., MD Objective Remarks GENERAL: Patient is lying in bed on NC, no acute distress SKIN: Warm and dry. HEAD: Normocephalic. EYES: No scleral icterus. No injection or drainage. NECK: Supple, trachea midline. No JVD or lymphadenopathy. CARDIOVASCULAR: Tachycardic without murmurs, gallops, or rubs. RESPIRATORY: Breath sounds equal bilaterally. No accessory muscle use. Few basilar crackles GASTROINTESTINAL: Abdomen soft, non-tender, nondistended. MUSCULOSKELETAL: No significant peripheral edema. Neuro: Awake, alert following commands. No focal deficits overall lethargic A/P Assessment and Plan Neuro/Psych: Left frontal/Left superior cerebellar CVA Monitor neuro status closely and avoid any sedatives. Repeat CT brain 01/08: Evolving left cerebellar stroke. No evidence of hemorrhage CT brain 01/05 -no acute intracranial process. MRI brain 01/07 showed acute nonhemorrhagic infarction in the left superior cerebellum involving the folia measured 1.6 cm. Several small areas of infarction in the left frontal white matter in an end vessel distribution. Carotid Doppler US 01/07: Mild visible plaque without significant hemodynamic stenosis Seen by neuro- Dr. Mercado. Continue with ASA and heparin drip. Okay to transition to warfarin. Source likely left ventricular thrombus Pulm: Acute respiratory insufficiency Supplemental oxygen to maintain sats above 92%. Albuterol/ipratropium aerosols every 6 hours with albuterol aerosols every 2 hours. Dyspnea. On broad-spectrum antibiotics for pneumonia Add EzPAP and a cappella Need frequent suctioning and aggressive pulmonary care CV: Hypertension Left ventricle apical thrombus 1.2 cm Systolic heart failure Peripheral vascular disease NSTEMI Monitor HR and BP and maintain MAP>65 mmHg. Cards is following- Dr. Grant, Lopressor 50mg Q6 and ASA 81mg daily. Echo showed small LV apical thrombus, EF 40-45% Continue with Heparin drip- cleared ny Neuro /FEN/RENAL: Hypernatremia Acute renal injury Monitor renal function Is and Os and avoid nephrotoxins, replacement as needed. Renal has followed- Dr. Howard. 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 NPO per speech. Monitor LFT's, continue with tube feeds via NGT ( Glucerna 1.5 with goal rate 45ml/hr) US Liver: No acute findings. Hepatitis profile: Hep C ab reactive. CT abdomen/pelvis: No acute abnormality observed. Colonic diverticulosis without acute inflammation. On Pepcid 10 mg IV q. 12 for GI prophylaxis. Monitor Lipase (now within normal) Heme: Leukocytosis Normocytic anemia Thrombocytopenia Monitor CBC Endo: Diabetes mellitus DKA resolved On medium SSI with Accu-Cheks before meals/at bedtime, insulin detemir 15 u BID ID: Klebsiella pneumonia Beta strep not a Healthcare associated pneumonia Fever trending down Cultures 01/09 sputum still pneumonia/beta strep not a Monitor for signs of infections( fever and WBC) 01/07 blood cultures- NGTD Continue empiric abx ( Zosyn). Given 1 dose of vanc . GI prophylaxis with famotidine and DVT prophylaxis with SCDs./Heparin drip Level II follow-up Bhupinder Chavez MD Jan 12, 2017 19:27
[2017-01-12] MEDS ORDERED: RESP: ALBUTEROL 2.5 MG/3 ML NEB (PRN) NEB (20:00)
[2017-01-12] MEDS ORDERED: INFO FOR PHARMACY/READ COMMENT ONE (20:00)
[2017-01-13] VITALS (15 sets, daily range): BP systolic 121–142; BP diastolic 64–81; PULSE 71–91; RESP 20–27; TEMP 97.6–99.8; O2SAT 94–100
[2017-01-13] MEDS: PIPERACIL-TAZO 3.375 GM PREMIX 50 ML IV SCH ×5 (00:10→22:49)
[2017-01-13] MEDS: METOPROLOL TARTRATE 50 MG TAB PO SCH ×5 (00:10→22:48)
[2017-01-13] MEDS: CHLORHEXIDINE GLUCONATE 2 % 1 PACK (2 CLOTHS) TOP SCH ×2 (03:01→22:49)
[2017-01-13] MEDS: RESP: ALBUTEROL 2.5 MG/IPRATROPIUM 0.5 MG NEB (SCH) NEB ×4 (03:54→20:55)
[2017-01-13] MEDS: SODIUM CHLORIDE 23.4% INJ 38.5 MEQ in WATER STERILE FOR INJ 1,000 ML IV SCH ×3 (04:10→21:00)
[2017-01-13] MEDS: HEPARIN-D5W 25,000 U/250 ML 250 ML IV PRN (04:33)
[2017-01-13 05:14] LABS: APTT (PATIENT) 45.3 SEC (24.3-30.1); AUTOMATED NEUTROPHIL # 9.4 TH/MM3 (1.8-7.7); BASOPHIL % 0.1 % (0.0-2.0); EOSINOPHIL # 0.1 TH/MM3 (0-0.4); EOSINOPHIL % 0.8 % (0.0-4.0); HEMATOCRIT 34.9 % (39.0-51.0); HEMO FLAGS DIFF FINAL; LYMPH % 17.3 % (9.0-44.0); LYMPHOCYTE # 2.2 TH/MM3 (1.0-4.8); MEAN CELL VOLUME 85.7 FL (80.0-100.0); MEAN CORPUSCULAR HGB CONC 33.9 % (32.0-36.0); MONO % 8.1 % (0.0-8.0); NEUT % 73.7 % (16.0-70.0); PLATELET COUNT 141 TH/MM3 (150-450); PROTHROMBIN TIME - PATIENT 10.5 SEC (9.8-11.6); RED BLOOD COUNT 4.07 MIL/MM3 (4.50-5.90); RED CELL DISTRIBUTION WIDTH 13.3 % (11.6-17.2); WHITE BLOOD COUNT 12.7 TH/MM3 (4.0-11.0)
[2017-01-13 05:43] LABS: BICARBONATE 27.3 MEQ/L (21.0-32.0); CALCIUM-PROTEIN CORRECTED 7.8 MG/DL (8.5-10.1); MAGNESIUM 2.2 MG/DL (1.5-2.5); TOTAL BILIRUBIN ADULT 0.9 MG/DL (0.2-1.0)
[2017-01-13 05:46] LABS: POTASSIUM 2.9 MEQ/L (3.5-5.1)
[2017-01-13] MEDS: POTASSIUM CHLOR 20 MEQ PREMIX 100 ML IV PRN ×2 (06:06→06:08)
[2017-01-13] MEDS: INSULIN DETEMIR 100 UNITS/ML VIAL SQ SCH ×2 (07:52→20:59)
[2017-01-13] MEDS: ASPIRIN 81 MG CHEW TAB CHEW SCH (07:52)
[2017-01-13] MEDS: DOCUSATE SODIUM 50 MG/SENNA 8.6 MG TAB PO SCH ×2 (07:53→20:58)
[2017-01-13] MEDS: INSULIN NovoLIN REGULAR SUPPLEMENTAL SCALE SQ SCH ×4 (07:55→20:59)
--- NOTE | 2017-01-13 11:05 | HHI.CCPN ---
Subjective Remarks/Hospital Course The patient is a 66-year-old male with past medical history of hypertension, peripheral vascular disease, type 2 diabetes mellitus who presented to [facility] emergency department for altered mental status. According to the patient's sister the last time she saw him was five days ago, she called the fire department today to check on him and when they arrived they saw the patient sitting in the bathroom not sure for how long and was unresponsive. The patient was altered and unable to give any history. His blood sugar at the scene was too high to register the and they started IV fluids and transferred into the emergency department. In the emergency room the patient was found to be in DKA and renal failure. His BMP showed severe hyperglycemia with a blood sugar of 1116 with severe metabolic acidosis and acute renal failure. His creatinine 5.0 with a BUN 68 in addition the patient was hyperkalemic with a potassium level 7.9 and a bicarb of 8.8. ABG showed severe metabolic acidosis with a pH of 7.12, CO2 21, pAO2 322, bicarb seven and saturation of 97%. Other significant labs on arrival showed lactic acidemia with elevated lactic acid level of 5.5 and elevated lipase level of 3507. His beta-hydroxybutyrate was measured at 11.4. Most of the history was obtained from the review of reviewing medical records and from my discussion with a sister who was present at the bedside. A chest x-ray In the emergency department showed no evidence of any acute cardiopulmonary disease. When seen in the emergency room the patient slowly responded to some the questions that was asked, He denies any abdominal pain, nausea or vomiting. In the emergency department was given 3 liters of crystalloids along with insulin 7.5 and units IV push and 1 gram of calcium chloride. He was placed on insulin drip in addition to amps of sodium bicarb was ordered. 01/06 Patient was on insulin drip 18u/hr overnight AG closed (13)this morning. Lactic acid resolved 1.1 from 5.5 on arrival. 01/07 No events overnight. Off insulin drip. Afebrile. Renal function is improving with Cr: 1.97 today, Na 150 from 155. 01/08 Patient is on 9L simple mask, renal function continue to improve with Cr: 1.52 from 1.97. MRI brain yesterday showed acute nonhemorrhagic infarction in the left superior cerebellum involving the folia measured 1.6 cm. Several small areas of infarction in the left frontal white matter in an end vessel distribution. 01/09 Patient is on 4L oxygen with good sats. T:99.9 Started on Heparin drip yesterday ( Echo showed LV apical thrombus) Repeat CT brain yesterday negative for bleed. 01/10: Mildly tachypneic today. Febrile overnight Tmax 101.6. Na 153. Cultures are pending 01/11: Appears to be in moderate respiratory distress today, difficulty with clearing secretions. Chest x-ray shows some pulmonary vascular congestion and basilar infiltrates, sputum culture with GNR. Sodium elevated at 158 increased from yesterday 153. Started 02/15 saline at 100 ML per hour, increased the water flushes. Afebrile today 01/12: Afebrile. Passed swallow evaluation today currently on a pured ADA diet. No acute issues overnight. Subjective 01/13: Resting currently in bed in no acute distress. Eating breakfast with a knife. Speech therapy recommended cognitive evaluation. Received 7 units insulin scale insulin overnight. On 3 L nasal cannula. Objective Vital Signs Date Time Temp Pulse Resp B/P (MAP) Pulse Ox O2 Delivery O2 Flow Rate FiO2 01/13/17 08:50 100 3.00 01/13/17 08:00 74 01/13/17 08:00 98.5 24 137/81 (99) 01/12/17 19:37 Nasal Cannula Intake and Output 01/13/17 01/13/17 01/14/17 08:00 16:00 00:00 Intake Total 770.6 ml Balance 770.6 ml Result Diagram: 01/13/17 0430 01/13/17 0430 Other Results Microbiology Date/Time Source Procedure Growth Status 01/09/17 11:29 Blood Peripheral Aerobic Blood Culture - Preliminary NO GROWTH IN 3 DAYS Resulted 01/09/17 11:29 Blood Peripheral Anaerobic Blood Culture - Preliminary NO GROWTH IN 3 DAYS Resulted 01/09/17 11:00 Sputum Expectorated Sputum Gram Stain - Final Complete 01/09/17 11:00 Sputum Culture - Final Klebsiella Pneumoniae Beta Strep Not Group A Complete 01/09/17 10:45 Urine Catheterized Urine Urine Culture - Final NO GROWTH IN 48 HOURS. Complete Imaging Last Impressions Chest X-Ray 01/12/17 0000 Signed Impressions: Service Date/Time: Thursday, January 12, 2017 07:30 - CONCLUSION: Unchanged bibasilar consolidations felt to relate to infectious infiltrates. Gama Rivers Jr., MD Head CT 01/08/17 0000 Signed Impressions: Service Date/Time: Sunday, January 08, 2017 16:17 - CONCLUSION: Evolving left cerebellar stroke. No evidence of hemorrhage. Nasogastric tube is coiled in the pharynx Lele Klein MD Carotid Artery Ultrasound 01/07/17 0000 Signed Impressions: Service Date/Time: Saturday, January 07, 2017 17:27 - CONCLUSION: 1. Mild visible plaque formation without hemodynamically significant stenosis. Michael Rhoades MD Brain MRI 01/07/17 0000 Signed Impressions: Service Date/Time: Saturday, January 07, 2017 13:44 - CONCLUSION: 1. Acute nonhemorrhagic infarction in the left superior cerebellum involving the folia measured 1.6 cm. 2. Several small areas of infarction in the left frontal white matter in an end vessel distribution. Gama Calderon MD Liver Ultrasound 01/06/17 0000 Signed Impressions: Service Date/Time: Friday, January 06, 2017 10:40 - CONCLUSION: 1. No acute findings. No free fluid. No gallstones or right-sided hydronephrosis. Mild fatty liver. Michael Rhoades MD Abdomen/Pelvis CT 01/05/17 0000 Signed Impressions: Service Date/Time: Thursday, January 05, 2017 16:38 - CONCLUSION: 1. No acute abnormality observed. In particular, no appreciable inflammatory process involving the pancreas. The pancreas is somewhat blurred by breathing motion artifact limiting its evaluation. 2. Colonic diverticulosis without acute inflammation. Gama Rivers Jr., MD Objective Remarks GENERAL: Patient is lying in bed on NC, no acute distress SKIN: Warm and dry. HEAD: Normocephalic. EYES: No scleral icterus. No injection or drainage. NECK: Supple, trachea midline. No JVD or lymphadenopathy. CARDIOVASCULAR: Tachycardic without murmurs, gallops, or rubs. RESPIRATORY: Breath sounds equal bilaterally. No accessory muscle use. Few basilar crackles GASTROINTESTINAL: Abdomen soft, non-tender, nondistended. MUSCULOSKELETAL: Trace bilateral lower extremity peripheral edema. Neuro: Awake, alert following commands. No focal deficits strength is equal symmetric. A/P Assessment and Plan Neuro/Psych: Left frontal/Left superior cerebellar CVA Monitor neuro status closely and avoid any sedatives. Repeat CT brain 01/08: Evolving left cerebellar stroke. No evidence of hemorrhage CT brain 01/05 -no acute intracranial process. MRI brain 01/07 showed acute nonhemorrhagic infarction in the left superior cerebellum involving the folia measured 1.6 cm. Several small areas of infarction in the left frontal white matter in an end vessel distribution. Carotid Doppler US 01/07: Mild visible plaque without significant hemodynamic stenosis Seen by neuro- Dr. Mercado. Continue with ASA and heparin drip. Okay to transition to warfarin 2.5 mg daily. Source likely left ventricular thrombus PT/OT/ST evaluate and treat Pulm: Acute respiratory insufficiency Supplemental oxygen to maintain sats above 92%. Albuterol/ipratropium aerosols every 6 hours with albuterol aerosols every 2 hours. Dyspnea. Piperacillin/tazobactam antibiotics for pneumonia Add EzPAP and a cappella Need frequent suctioning and aggressive pulmonary care CV: Hypertension Left ventricle apical thrombus 1.2 cm Systolic heart failure Peripheral vascular disease NSTEMI Monitor HR and BP and maintain MAP>65 mmHg. Cards is following- Dr. Grant, Lopressor 50mg Q6 and ASA 81mg daily. Echo showed small LV apical thrombus, EF 40-45% Continue with Heparin drip- cleared ny Neuro and on warfarin day #2 /FEN/RENAL: Hypernatremia Hypo-potassium Hypophosphatemia Acute renal injury Monitor renal function Is and Os and avoid nephrotoxins, replacement per ICU electrolyte protocol Renal has followed- Dr. Howard. 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 NPO per speech. Monitor LFT's, continue with tube feeds via NGT ( Glucerna 1.5 with goal rate 45ml/hr) US Liver: No acute findings. Hepatitis profile: Hep C ab reactive. CT abdomen/pelvis: No acute abnormality observed. Colonic diverticulosis without acute inflammation. On Pepcid 10 mg IV q. 12 for GI prophylaxis. Monitor Lipase (now within normal) Heme: Leukocytosis Normocytic anemia Thrombocytopenia Monitor CBC Endo: Diabetes mellitus DKA resolved On medium SSI with Accu-Cheks before meals/at bedtime, insulin detemir 15 u BID. 7 units sliding scale past 24 hours ID: Klebsiella pneumonia Beta strep not a Healthcare associated pneumonia Fever trending down Cultures 01/09 sputum still pneumonia/beta strep not a Monitor for signs of infections( fever and WBC) 01/07 blood cultures- NGTD Continue empiric abx (piperacillin/tazobactam). Given 1 dose of vancomycin . GI prophylaxis with famotidine and DVT prophylaxis with SCDs./Heparin drip Level II follow-up Bhupinder Chavez MD Jan 13, 2017 11:05
[2017-01-13] MEDS ORDERED: POTASSIUM PHOSPHATE/SODIUM PHOSPHATE 250 MG TAB PO ONE (11:15)
[2017-01-13] MEDS: POTASSIUM CHLORIDE 10 MEQ CONTROLLED RELEASE TAB PO SCH ×2 (13:02→20:58)
[2017-01-13] MEDS: WARFARIN SOD 2.5 MG TAB PO SCH (15:19)
[2017-01-14] VITALS (14 sets, daily range): BP systolic 105–140; BP diastolic 56–74; PULSE 67–94; RESP 20–26; TEMP 98.3–98.8; O2SAT 96–100
[2017-01-14] MEDS: HEPARIN-D5W 25,000 U/250 ML 250 ML IV PRN (01:12)
[2017-01-14 04:41] LABS: AUTOMATED NEUTROPHIL # 10.4 TH/MM3 (1.8-7.7); BASOPHIL % 0.1 % (0.0-2.0); EOSINOPHIL # 0.1 TH/MM3 (0-0.4); EOSINOPHIL % 0.9 % (0.0-4.0); HEMATOCRIT 32.5 % (39.0-51.0); HEMO FLAGS DIFF FINAL; LYMPH % 13.9 % (9.0-44.0); LYMPHOCYTE # 1.9 TH/MM3 (1.0-4.8); MEAN CELL VOLUME 85.4 FL (80.0-100.0); MEAN CORPUSCULAR HEMOGLOBIN 28.5 PG (27.0-34.0); MEAN CORPUSCULAR HGB CONC 33.3 % (32.0-36.0); MONO % 7.9 % (0.0-8.0); NEUT % 77.2 % (16.0-70.0); PLATELET COUNT 169 TH/MM3 (150-450); RED BLOOD COUNT 3.81 MIL/MM3 (4.50-5.90); RED CELL DISTRIBUTION WIDTH 13.3 % (11.6-17.2); WHITE BLOOD COUNT 13.4 TH/MM3 (4.0-11.0)
[2017-01-14] MEDS: RESP: ALBUTEROL 2.5 MG/IPRATROPIUM 0.5 MG NEB (SCH) NEB ×4 (04:41→21:36)
[2017-01-14 04:53] LABS: INTERNATIONAL NORMALIZED RATIO 1.1 RATIO; PROTHROMBIN TIME - PATIENT 10.7 SEC (9.8-11.6)
[2017-01-14 05:01] LABS: BICARBONATE 26.2 MEQ/L (21.0-32.0); MAGNESIUM 1.8 MG/DL (1.5-2.5); POTASSIUM 3.5 MEQ/L (3.5-5.1)
[2017-01-14 05:12] LABS: CALCIUM-PROTEIN CORRECTED 7.8 MG/DL (8.5-10.1)
[2017-01-14] MEDS: METOPROLOL TARTRATE 50 MG TAB PO SCH ×4 (06:19→23:13)
[2017-01-14] MEDS: PIPERACIL-TAZO 3.375 GM PREMIX 50 ML IV SCH ×4 (06:19→23:13)
[2017-01-14 06:54] LABS: APTT (PATIENT) 47.1 SEC (24.3-30.1)
[2017-01-14] MEDS: INSULIN NovoLIN REGULAR SUPPLEMENTAL SCALE SQ SCH ×4 (08:00→19:57)
[2017-01-14] MEDS: INSULIN DETEMIR 100 UNITS/ML VIAL SQ SCH ×2 (08:07→19:57)
[2017-01-14] MEDS: DOCUSATE SODIUM 50 MG/SENNA 8.6 MG TAB PO SCH ×2 (08:07→19:57)
[2017-01-14] MEDS: ASPIRIN 81 MG CHEW TAB CHEW SCH (08:07)
[2017-01-14] MEDS: SODIUM CHLORIDE 23.4% INJ 38.5 MEQ in WATER STERILE FOR INJ 1,000 ML IV SCH ×2 (09:19→23:13)
--- NOTE | 2017-01-14 13:19 | HHI.CCPN ---
Subjective Remarks/Hospital Course The patient is a 66-year-old male with past medical history of hypertension, peripheral vascular disease, type 2 diabetes mellitus who presented to [facility] emergency department for altered mental status. According to the patient's sister the last time she saw him was five days ago, she called the fire department today to check on him and when they arrived they saw the patient sitting in the bathroom not sure for how long and was unresponsive. The patient was altered and unable to give any history. His blood sugar at the scene was too high to register the and they started IV fluids and transferred into the emergency department. In the emergency room the patient was found to be in DKA and renal failure. His BMP showed severe hyperglycemia with a blood sugar of 1116 with severe metabolic acidosis and acute renal failure. His creatinine 5.0 with a BUN 68 in addition the patient was hyperkalemic with a potassium level 7.9 and a bicarb of 8.8. ABG showed severe metabolic acidosis with a pH of 7.12, CO2 21, pAO2 322, bicarb seven and saturation of 97%. Other significant labs on arrival showed lactic acidemia with elevated lactic acid level of 5.5 and elevated lipase level of 3507. His beta-hydroxybutyrate was measured at 11.4. Most of the history was obtained from the review of reviewing medical records and from my discussion with a sister who was present at the bedside. A chest x-ray In the emergency department showed no evidence of any acute cardiopulmonary disease. When seen in the emergency room the patient slowly responded to some the questions that was asked, He denies any abdominal pain, nausea or vomiting. In the emergency department was given 3 liters of crystalloids along with insulin 7.5 and units IV push and 1 gram of calcium chloride. He was placed on insulin drip in addition to amps of sodium bicarb was ordered. 01/06 Patient was on insulin drip 18u/hr overnight AG closed (13)this morning. Lactic acid resolved 1.1 from 5.5 on arrival. 01/07 No events overnight. Off insulin drip. Afebrile. Renal function is improving with Cr: 1.97 today, Na 150 from 155. 01/08 Patient is on 9L simple mask, renal function continue to improve with Cr: 1.52 from 1.97. MRI brain yesterday showed acute nonhemorrhagic infarction in the left superior cerebellum involving the folia measured 1.6 cm. Several small areas of infarction in the left frontal white matter in an end vessel distribution. 01/09 Patient is on 4L oxygen with good sats. T:99.9 Started on Heparin drip yesterday ( Echo showed LV apical thrombus) Repeat CT brain yesterday negative for bleed. 01/10: Mildly tachypneic today. Febrile overnight Tmax 101.6. Na 153. Cultures are pending 01/11: Appears to be in moderate respiratory distress today, difficulty with clearing secretions. Chest x-ray shows some pulmonary vascular congestion and basilar infiltrates, sputum culture with GNR. Sodium elevated at 158 increased from yesterday 153. Started 02/15 saline at 100 ML per hour, increased the water flushes. Afebrile today 01/12: Afebrile. Passed swallow evaluation today currently on a pured ADA diet. No acute issues overnight. Subjective 01/13: Resting currently in bed in no acute distress. Eating breakfast with a knife. Speech therapy recommended cognitive evaluation. Received 7 units insulin scale insulin overnight. On 3 L nasal cannula. 01/14: Patient oriented to name only, very confused thinks he is in [facility].. He was started on Coumadin 2.5 mg yesterday transitioning from IV heparin. Objective Vital Signs Date Time Temp Pulse Resp B/P (MAP) Pulse Ox O2 Delivery O2 Flow Rate FiO2 01/14/17 12:00 84 01/14/17 10:01 97 Nasal Cannula 2.00 01/14/17 08:00 98.4 21 125/61 (82) Intake and Output 01/14/17 01/14/17 01/15/17 08:00 16:00 00:00 Intake Total 540 ml Output Total 800 ml Balance -260 ml Result Diagram: 01/14/17 0343 01/14/17 0343 Imaging Last Impressions Chest X-Ray 01/12/17 0000 Signed Impressions: Service Date/Time: Thursday, January 12, 2017 07:30 - CONCLUSION: Unchanged bibasilar consolidations felt to relate to infectious infiltrates. Gama Rivers Jr., MD Head CT 01/08/17 0000 Signed Impressions: Service Date/Time: Sunday, January 08, 2017 16:17 - CONCLUSION: Evolving left cerebellar stroke. No evidence of hemorrhage. Nasogastric tube is coiled in the pharynx Lele Klein MD Carotid Artery Ultrasound 01/07/17 0000 Signed Impressions: Service Date/Time: Saturday, January 07, 2017 17:27 - CONCLUSION: 1. Mild visible plaque formation without hemodynamically significant stenosis. Michael Rhoades MD Brain MRI 01/07/17 0000 Signed Impressions: Service Date/Time: Saturday, January 07, 2017 13:44 - CONCLUSION: 1. Acute nonhemorrhagic infarction in the left superior cerebellum involving the folia measured 1.6 cm. 2. Several small areas of infarction in the left frontal white matter in an end vessel distribution. Gama Calderon MD Liver Ultrasound 01/06/17 0000 Signed Impressions: Service Date/Time: Friday, January 06, 2017 10:40 - CONCLUSION: 1. No acute findings. No free fluid. No gallstones or right-sided hydronephrosis. Mild fatty liver. Michael Rhoades MD Abdomen/Pelvis CT 01/05/17 0000 Signed Impressions: Service Date/Time: Thursday, January 05, 2017 16:38 - CONCLUSION: 1. No acute abnormality observed. In particular, no appreciable inflammatory process involving the pancreas. The pancreas is somewhat blurred by breathing motion artifact limiting its evaluation. 2. Colonic diverticulosis without acute inflammation. Gama Rivers Jr., MD Objective Remarks GENERAL: Patient is lying in bed on NC, no acute distress SKIN: Warm and dry. HEAD: Normocephalic. EYES: No scleral icterus. No injection or drainage. NECK: Supple, trachea midline. No JVD or lymphadenopathy. CARDIOVASCULAR: Regular rate. without murmurs, gallops, or rubs. RESPIRATORY: Breath sounds equal bilaterally. No accessory muscle use. Few basilar crackles GASTROINTESTINAL: Abdomen soft, non-tender, nondistended. MUSCULOSKELETAL: Trace bilateral lower extremity peripheral edema. Neuro: GCS14 Awake, alert following commands. No focal deficits strength is equal symmetric. A/P Assessment and Plan Neuro/Psych: Left frontal/Left superior cerebellar CVA Monitor neuro status closely and avoid any sedatives. Repeat CT brain 01/08: Evolving left cerebellar stroke. No evidence of hemorrhage CT brain 01/05 -no acute intracranial process. MRI brain 01/07 showed acute nonhemorrhagic infarction in the left superior cerebellum involving the folia measured 1.6 cm. Several small areas of infarction in the left frontal white matter in an end vessel distribution. Carotid Doppler US 01/07: Mild visible plaque without significant hemodynamic stenosis Seen by neuro- Dr. Mercado. Continue with ASA and heparin drip. Okay to transition to warfarin 2.5 mg daily (started 01/14). Source likely left ventricular thrombus PT/OT/ST evaluate and treat Pulm: Acute respiratory insufficiency Supplemental oxygen to maintain sats above 92%. Albuterol/ipratropium aerosols every 6 hours with albuterol aerosols every 2 hours. Dyspnea. Piperacillin/tazobactam antibiotics for pneumonia Add EzPAP and a cappella Need frequent suctioning and aggressive pulmonary care CV: Hypertension Left ventricle apical thrombus 1.2 cm Systolic heart failure Peripheral vascular disease NSTEMI Monitor HR and BP and maintain MAP>65 mmHg. Cards is following- Dr. Grant, Lopressor 50mg Q6 and ASA 81mg daily. Echo showed small LV apical thrombus, EF 40-45% Continue with Heparin drip- cleared by Neuro and on warfarin. INR 1.4 continue to monitor /FEN/RENAL: Hypernatremia Hypo-potassium Hypophosphatemia Acute renal injury Monitor renal function Is and Os and avoid nephrotoxins, replacement per ICU electrolyte protocol Renal has followed- Dr. Howard. Renal function creatinine normalizing 02/15 NS at 100 ml per hr discontinued 01/15 . 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 NPO per speech. Monitor LFT's, continue with tube feeds via NGT ( Glucerna 1.5 with goal rate 45ml/hr) US Liver: No acute findings. Hepatitis profile: Hep C ab reactive. CT abdomen/pelvis: No acute abnormality observed. Colonic diverticulosis without acute inflammation. On Pepcid 10 mg IV q. 12 for GI prophylaxis. Monitor Lipase (now within normal) Heme: Leukocytosis Normocytic anemia Thrombocytopenia Monitor CBC Endo: Diabetes mellitus DKA resolved On medium SSI with Accu-Cheks before meals/at bedtime, insulin detemir 15 u BID. 7 units sliding scale past 24 hours ID: Klebsiella pneumonia Beta strep not A Healthcare associated pneumonia Fever trending down Cultures 01/09 sputum still pneumonia/beta strep not a Monitor for signs of infections( fever and WBC) 01/07 blood cultures- NGTD Continue empiric abx (piperacillin/tazobactam). Given 1 dose of vancomycin . GI prophylaxis with famotidine and DVT prophylaxis with SCDs./Heparin drip Level 2 follow-up. Plan transfer to [facility] in a.m., planned transfer to [facility] floor Dispo: Case management consult for rehabilitation Physician Yancy Murray MD Jan 14, 2017 13:19
[2017-01-14] MEDS: WARFARIN SOD 2.5 MG TAB PO SCH (15:58)
[2017-01-14] MEDS: CHLORHEXIDINE GLUCONATE 2 % 1 PACK (2 CLOTHS) TOP SCH (19:58)
[2017-01-15] VITALS (14 sets, daily range): BP systolic 106–153; BP diastolic 61–78; PULSE 71–111; RESP 23–29; TEMP 97.8–98.8; O2SAT 95–100
[2017-01-15] MEDS: HEPARIN-D5W 25,000 U/250 ML 250 ML IV PRN (00:54)
[2017-01-15] MEDS: RESP: ALBUTEROL 2.5 MG/IPRATROPIUM 0.5 MG NEB (SCH) NEB ×3 (03:55→15:04)
[2017-01-15] MEDS: PIPERACIL-TAZO 3.375 GM PREMIX 50 ML IV SCH ×4 (05:28→23:28)
[2017-01-15] MEDS: METOPROLOL TARTRATE 50 MG TAB PO SCH ×5 (05:28→23:28)
[2017-01-15] MEDS: INSULIN NovoLIN REGULAR SUPPLEMENTAL SCALE SQ SCH ×4 (08:00→21:04)
[2017-01-15] MEDS: ASPIRIN 81 MG CHEW TAB CHEW SCH (08:53)
[2017-01-15] MEDS: DOCUSATE SODIUM 50 MG/SENNA 8.6 MG TAB PO SCH ×2 (08:54→21:00)
[2017-01-15] MEDS: INSULIN DETEMIR 100 UNITS/ML VIAL SQ SCH ×2 (08:54→21:04)
[2017-01-15 09:13] LABS: HEMATOCRIT 31.4 % (39.0-51.0); MEAN CELL VOLUME 84.3 FL (80.0-100.0); MEAN CORPUSCULAR HEMOGLOBIN 29.4 PG (27.0-34.0); MEAN CORPUSCULAR HGB CONC 34.9 % (32.0-36.0); PLATELET COUNT 207 TH/MM3 (150-450); RED BLOOD COUNT 3.72 MIL/MM3 (4.50-5.90); RED CELL DISTRIBUTION WIDTH 12.5 % (11.6-17.2); REVIEW FLAG FINAL; WHITE BLOOD COUNT 10.9 TH/MM3 (4.0-11.0)
[2017-01-15 09:15] LABS: APTT (PATIENT) 53.7 SEC (24.3-30.1); INTERNATIONAL NORMALIZED RATIO 1.4 RATIO; PROTHROMBIN TIME - PATIENT 14.1 SEC (9.8-11.6)
[2017-01-15 09:45] LABS: BICARBONATE 21.5 MEQ/L (21.0-32.0); MAGNESIUM 1.7 MG/DL (1.5-2.5); POTASSIUM 3.3 MEQ/L (3.5-5.1)
[2017-01-15 10:04] LABS: CALCIUM-PROTEIN CORRECTED 7.9 MG/DL (8.5-10.1)
[2017-01-15] MEDS: SODIUM CHLORIDE 23.4% INJ 38.5 MEQ in WATER STERILE FOR INJ 1,000 ML IV SCH (11:42)
[2017-01-15] MEDS: POTASSIUM CHLOR 20 MEQ PREMIX 100 ML IV PRN (11:44)
[2017-01-15] MEDS: WARFARIN SOD 2.5 MG TAB PO SCH (16:21)
[2017-01-15] MEDS: CHLORHEXIDINE GLUCONATE 2 % 1 PACK (2 CLOTHS) TOP SCH (23:29)
[2017-01-16] VITALS (14 sets, daily range): BP systolic 104–129; BP diastolic 55–68; PULSE 66–91; RESP 19–25; TEMP 97.7–98.7; O2SAT 97–100
[2017-01-16] MEDS: HEPARIN-D5W 25,000 U/250 ML 250 ML IV PRN (00:30)
[2017-01-16] MEDS: PIPERACIL-TAZO 3.375 GM PREMIX 50 ML IV SCH ×3 (05:20→16:57)
[2017-01-16] MEDS: METOPROLOL TARTRATE 50 MG TAB PO SCH ×3 (05:20→16:57)
[2017-01-16 07:09] LABS: APTT (PATIENT) 46.6 SEC (24.3-30.1); INTERNATIONAL NORMALIZED RATIO 1.5 RATIO; PROTHROMBIN TIME - PATIENT 14.7 SEC (9.8-11.6)
[2017-01-16] MEDS: INSULIN NovoLIN REGULAR SUPPLEMENTAL SCALE SQ SCH ×4 (08:00→20:24)
[2017-01-16] MEDS: DOCUSATE SODIUM 50 MG/SENNA 8.6 MG TAB PO SCH ×2 (09:00→20:24)
[2017-01-16] MEDS: INSULIN DETEMIR 100 UNITS/ML VIAL SQ SCH ×2 (09:00→20:24)
[2017-01-16] MEDS: ASPIRIN 81 MG CHEW TAB CHEW SCH (09:15)
--- NOTE | 2017-01-16 13:27 | HHI.CCPN ---
Subjective Remarks/Hospital Course NOTE INTENDED FOR 01/15/2017 The patient is a 66-year-old male with past medical history of hypertension, peripheral vascular disease, type 2 diabetes mellitus who presented to [facility] emergency department for altered mental status. According to the patient's sister the last time she saw him was five days ago, she called the fire department today to check on him and when they arrived they saw the patient sitting in the bathroom not sure for how long and was unresponsive. The patient was altered and unable to give any history. His blood sugar at the scene was too high to register the and they started IV fluids and transferred into the emergency department. In the emergency room the patient was found to be in DKA and renal failure. His BMP showed severe hyperglycemia with a blood sugar of 1116 with severe metabolic acidosis and acute renal failure. His creatinine 5.0 with a BUN 68 in addition the patient was hyperkalemic with a potassium level 7.9 and a bicarb of 8.8. ABG showed severe metabolic acidosis with a pH of 7.12, CO2 21, pAO2 322, bicarb seven and saturation of 97%. Other significant labs on arrival showed lactic acidemia with elevated lactic acid level of 5.5 and elevated lipase level of 3507. His beta-hydroxybutyrate was measured at 11.4. Most of the history was obtained from the review of reviewing medical records and from my discussion with a sister who was present at the bedside. A chest x-ray In the emergency department showed no evidence of any acute cardiopulmonary disease. When seen in the emergency room the patient slowly responded to some the questions that was asked, He denies any abdominal pain, nausea or vomiting. In the emergency department was given 3 liters of crystalloids along with insulin 7.5 and units IV push and 1 gram of calcium chloride. He was placed on insulin drip in addition to amps of sodium bicarb was ordered. 01/06 Patient was on insulin drip 18u/hr overnight AG closed (13)this morning. Lactic acid resolved 1.1 from 5.5 on arrival. 01/07 No events overnight. Off insulin drip. Afebrile. Renal function is improving with Cr: 1.97 today, Na 150 from 155. 01/08 Patient is on 9L simple mask, renal function continue to improve with Cr: 1.52 from 1.97. MRI brain yesterday showed acute nonhemorrhagic infarction in the left superior cerebellum involving the folia measured 1.6 cm. Several small areas of infarction in the left frontal white matter in an end vessel distribution. 01/09 Patient is on 4L oxygen with good sats. T:99.9 Started on Heparin drip yesterday ( Echo showed LV apical thrombus) Repeat CT brain yesterday negative for bleed. 01/10: Mildly tachypneic today. Febrile overnight Tmax 101.6. Na 153. Cultures are pending 01/11: Appears to be in moderate respiratory distress today, difficulty with clearing secretions. Chest x-ray shows some pulmonary vascular congestion and basilar infiltrates, sputum culture with GNR. Sodium elevated at 158 increased from yesterday 153. Started 02/15 saline at 100 ML per hour, increased the water flushes. Afebrile today 01/12: Afebrile. Passed swallow evaluation today currently on a pured ADA diet. No acute issues overnight. Subjective 01/13: Resting currently in bed in no acute distress. Eating breakfast with a knife. Speech therapy recommended cognitive evaluation. Received 7 units insulin scale insulin overnight. On 3 L nasal cannula. 01/14: Patient oriented to name only, very confused thinks he is in [facility].. He was started on Coumadin 2.5 mg yesterday transitioning from IV heparin. 01/15: Noted intended for 01/15. No acute events patient scheduled for transfer to [facility] discussed with family member sister present in the room. Patient continues in restraints secondary to mild confusion. Tolerating diet Objective Vital Signs Date Time Temp Pulse Resp B/P (MAP) Pulse Ox O2 Delivery O2 Flow Rate FiO2 01/16/17 12:00 70 01/16/17 12:00 98.5 25 104/56 (72) 100 01/15/17 19:47 21 01/14/17 21:39 Nasal Cannula 2.00 Intake and Output 01/16/17 01/16/17 01/17/17 08:00 16:00 00:00 Intake Total 452 ml Balance 452 ml Result Diagram: 01/15/17 0839 01/16/17 0044 Imaging Last Impressions Chest X-Ray 01/12/17 0000 Signed Impressions: Service Date/Time: Thursday, January 12, 2017 07:30 - CONCLUSION: Unchanged bibasilar consolidations felt to relate to infectious infiltrates. Gama Rivers Jr., MD Head CT 01/08/17 0000 Signed Impressions: Service Date/Time: Sunday, January 08, 2017 16:17 - CONCLUSION: Evolving left cerebellar stroke. No evidence of hemorrhage. Nasogastric tube is coiled in the pharynx Lele Klein MD Carotid Artery Ultrasound 01/07/17 0000 Signed Impressions: Service Date/Time: Saturday, January 07, 2017 17:27 - CONCLUSION: 1. Mild visible plaque formation without hemodynamically significant stenosis. Michael Rhoades MD Brain MRI 01/07/17 0000 Signed Impressions: Service Date/Time: Saturday, January 07, 2017 13:44 - CONCLUSION: 1. Acute nonhemorrhagic infarction in the left superior cerebellum involving the folia measured 1.6 cm. 2. Several small areas of infarction in the left frontal white matter in an end vessel distribution. Gama Calderon MD Liver Ultrasound 01/06/17 0000 Signed Impressions: Service Date/Time: Friday, January 06, 2017 10:40 - CONCLUSION: 1. No acute findings. No free fluid. No gallstones or right-sided hydronephrosis. Mild fatty liver. Michael Rhoades MD Abdomen/Pelvis CT 01/05/17 0000 Signed Impressions: Service Date/Time: Thursday, January 05, 2017 16:38 - CONCLUSION: 1. No acute abnormality observed. In particular, no appreciable inflammatory process involving the pancreas. The pancreas is somewhat blurred by breathing motion artifact limiting its evaluation. 2. Colonic diverticulosis without acute inflammation. Gama Rivers Jr., MD Objective Remarks GENERAL: Patient is sitting up in bed on NC, no acute distress SKIN: Warm and dry. HEAD: Normocephalic. EYES: No scleral icterus. No injection or drainage. NECK: Supple, trachea midline. No JVD or lymphadenopathy. CARDIOVASCULAR: Regular rate. without murmurs, gallops, or rubs. RESPIRATORY: Breath sounds equal bilaterally. No accessory muscle use. Few basilar crackles GASTROINTESTINAL: Abdomen soft, non-tender, nondistended. MUSCULOSKELETAL: Trace bilateral lower extremity peripheral edema. Neuro: GCS14 Awake, alert following commands. No focal deficits strength is equal symmetric. A/P Assessment and Plan Neuro/Psych: Left frontal/Left superior cerebellar CVA Monitor neuro status closely and avoid any sedatives. Repeat CT brain 01/08: Evolving left cerebellar stroke. No evidence of hemorrhage CT brain 01/05 -no acute intracranial process. MRI brain 01/07 showed acute nonhemorrhagic infarction in the left superior cerebellum involving the folia measured 1.6 cm. Several small areas of infarction in the left frontal white matter in an end vessel distribution. Carotid Doppler US 01/07: Mild visible plaque without significant hemodynamic stenosis Seen by neuro- Dr. Mercado. Continue with ASA and heparin drip. Okay to transition to warfarin 2.5 mg daily (started 01/14). Source likely left ventricular thrombus PT/OT/ST evaluate and treat Pulm: Acute respiratory insufficiency-resolved Supplemental oxygen to maintain sats above 92%. Albuterol/ipratropium aerosols every 6 hours with albuterol aerosols every 2 hours. Dyspnea. Piperacillin/tazobactam antibiotics for pneumonia Add EzPAP and a cappella Need frequent suctioning and aggressive pulmonary care CV: Hypertension Left ventricle apical thrombus 1.2 cm Systolic heart failure Peripheral vascular disease NSTEMI Monitor HR and BP and maintain MAP>65 mmHg. Cards is following- Dr. Grant, Lopressor 50mg Q6 and ASA 81mg daily. Echo showed small LV apical thrombus, EF 40-45% Continue with Heparin drip- cleared by Neuro and on warfarin. INR 1.4 continue to monitor /FEN/RENAL: Hypernatremia Hypo-potassium Hypophosphatemia Acute renal injury Monitor renal function Is and Os and avoid nephrotoxins, replacement per ICU electrolyte protocol Renal has followed- Dr. Howard. Renal function creatinine normalizing 02/15 NS at 100 ml per hr discontinued 01/15 . 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 NPO per speech. Monitor LFT's, continue with tube feeds via NGT ( Glucerna 1.5 with goal rate 45ml/hr) US Liver: No acute findings. Hepatitis profile: Hep C ab reactive. CT abdomen/pelvis: No acute abnormality observed. Colonic diverticulosis without acute inflammation. On Pepcid 10 mg IV q. 12 for GI prophylaxis. Monitor Lipase (now within normal) Heme: Leukocytosis Normocytic anemia Thrombocytopenia Monitor CBC Endo: Diabetes mellitus DKA resolved On medium SSI with Accu-Cheks before meals/at bedtime, insulin detemir 15 u BID. 7 units sliding scale past 24 hours ID: Klebsiella pneumonia Beta strep not A Healthcare associated pneumonia Fever trending down Cultures 01/09 sputum still pneumonia/beta strep not a Monitor for signs of infections( fever and WBC) 01/07 blood cultures- NGTD Continue empiric abx (piperacillin/tazobactam). Given 1 dose of vancomycin . GI prophylaxis with famotidine and DVT prophylaxis with SCDs./Heparin drip Level 2 follow-up. [facility] upon bed availability Dispo: Case management consult for [place] rehabilitation Physician Yancy Murray MD Jan 16, 2017 13:27
--- NOTE | 2017-01-16 13:35 | HHI.CCPN ---
Subjective Remarks/Hospital Course The patient is a 66-year-old male with past medical history of hypertension, peripheral vascular disease, type 2 diabetes mellitus who presented to [facility] emergency department for altered mental status. According to the patient's sister the last time she saw him was five days ago, she called the fire department today to check on him and when they arrived they saw the patient sitting in the bathroom not sure for how long and was unresponsive. The patient was altered and unable to give any history. His blood sugar at the scene was too high to register the and they started IV fluids and transferred into the emergency department. In the emergency room the patient was found to be in DKA and renal failure. His BMP showed severe hyperglycemia with a blood sugar of 1116 with severe metabolic acidosis and acute renal failure. His creatinine 5.0 with a BUN 68 in addition the patient was hyperkalemic with a potassium level 7.9 and a bicarb of 8.8. ABG showed severe metabolic acidosis with a pH of 7.12, CO2 21, pAO2 322, bicarb seven and saturation of 97%. Other significant labs on arrival showed lactic acidemia with elevated lactic acid level of 5.5 and elevated lipase level of 3507. His beta-hydroxybutyrate was measured at 11.4. Most of the history was obtained from the review of reviewing medical records and from my discussion with a sister who was present at the bedside. A chest x-ray In the emergency department showed no evidence of any acute cardiopulmonary disease. When seen in the emergency room the patient slowly responded to some the questions that was asked, He denies any abdominal pain, nausea or vomiting. In the emergency department was given 3 liters of crystalloids along with insulin 7.5 and units IV push and 1 gram of calcium chloride. He was placed on insulin drip in addition to amps of sodium bicarb was ordered. 01/06 Patient was on insulin drip 18u/hr overnight AG closed (13)this morning. Lactic acid resolved 1.1 from 5.5 on arrival. 01/07 No events overnight. Off insulin drip. Afebrile. Renal function is improving with Cr: 1.97 today, Na 150 from 155. 01/08 Patient is on 9L simple mask, renal function continue to improve with Cr: 1.52 from 1.97. MRI brain yesterday showed acute nonhemorrhagic infarction in the left superior cerebellum involving the folia measured 1.6 cm. Several small areas of infarction in the left frontal white matter in an end vessel distribution. 01/09 Patient is on 4L oxygen with good sats. T:99.9 Started on Heparin drip yesterday ( Echo showed LV apical thrombus) Repeat CT brain yesterday negative for bleed. 01/10: Mildly tachypneic today. Febrile overnight Tmax 101.6. Na 153. Cultures are pending 01/11: Appears to be in moderate respiratory distress today, difficulty with clearing secretions. Chest x-ray shows some pulmonary vascular congestion and basilar infiltrates, sputum culture with GNR. Sodium elevated at 158 increased from yesterday 153. Started 02/15 saline at 100 ML per hour, increased the water flushes. Afebrile today 01/12: Afebrile. Passed swallow evaluation today currently on a pured ADA diet. No acute issues overnight. Subjective 01/13: Resting currently in bed in no acute distress. Eating breakfast with a knife. Speech therapy recommended cognitive evaluation. Received 7 units insulin scale insulin overnight. On 3 L nasal cannula. 01/14: Patient oriented to name only, very confused thinks he is in [place] [facility].. He was started on Coumadin 2.5 mg yesterday transitioning from IV heparin. 01/15: Noted intended for 01/15. No acute events patient scheduled for transfer to [facility] discussed with family member sister present in the room. Patient continues in restraints secondary to mild confusion. Tolerating diet 01/16: Afebrile. No acute events overnight. GCS remains 14, with confusion. Patient containing continue with restraints for patient safety. Patient previously scheduled for [place] [facility] transfer now cancelled. Patient' s INR 1.5 today, patient continues on aspirin Objective Vital Signs Date Time Temp Pulse Resp B/P (MAP) Pulse Ox O2 Delivery O2 Flow Rate FiO2 01/16/17 12:00 70 01/16/17 12:00 98.5 25 104/56 (72) 100 01/15/17 19:47 21 01/14/17 21:39 Nasal Cannula 2.00 Intake and Output 01/16/17 01/16/17 01/17/17 08:00 16:00 00:00 Intake Total 452 ml Balance 452 ml Result Diagram: 01/15/17 0839 01/16/17 0044 Imaging Last Impressions Chest X-Ray 01/12/17 0000 Signed Impressions: Service Date/Time: Thursday, January 12, 2017 07:30 - CONCLUSION: Unchanged bibasilar consolidations felt to relate to infectious infiltrates. Gama Rivers Jr., MD Head CT 01/08/17 0000 Signed Impressions: Service Date/Time: Sunday, January 08, 2017 16:17 - CONCLUSION: Evolving left cerebellar stroke. No evidence of hemorrhage. Nasogastric tube is coiled in the pharynx Lele Klein MD Carotid Artery Ultrasound 01/07/17 0000 Signed Impressions: Service Date/Time: Saturday, January 07, 2017 17:27 - CONCLUSION: 1. Mild visible plaque formation without hemodynamically significant stenosis. Michael Rhoades MD Brain MRI 01/07/17 0000 Signed Impressions: Service Date/Time: Saturday, January 07, 2017 13:44 - CONCLUSION: 1. Acute nonhemorrhagic infarction in the left superior cerebellum involving the folia measured 1.6 cm. 2. Several small areas of infarction in the left frontal white matter in an end vessel distribution. Gama Calderon MD Liver Ultrasound 01/06/17 0000 Signed Impressions: Service Date/Time: Friday, January 06, 2017 10:40 - CONCLUSION: 1. No acute findings. No free fluid. No gallstones or right-sided hydronephrosis. Mild fatty liver. Michael Rhoades MD Abdomen/Pelvis CT 01/05/17 0000 Signed Impressions: Service Date/Time: Thursday, January 05, 2017 16:38 - CONCLUSION: 1. No acute abnormality observed. In particular, no appreciable inflammatory process involving the pancreas. The pancreas is somewhat blurred by breathing motion artifact limiting its evaluation. 2. Colonic diverticulosis without acute inflammation. Gama Rivers Jr., MD Objective Remarks GENERAL: Patient is sitting up in bed on NC, no acute distress eating with assistance SKIN: Warm and dry. HEAD: Normocephalic. EYES: No scleral icterus. No injection or drainage. NECK: Supple, trachea midline. No JVD or lymphadenopathy. CARDIOVASCULAR: Regular rate. without murmurs, gallops, or rubs. RESPIRATORY: Breath sounds equal bilaterally. No accessory muscle use. Clear to auscultation bilaterally GASTROINTESTINAL: Abdomen soft, non-tender, nondistended. MUSCULOSKELETAL: No peripheral edema Neuro: GCS14 Awake, alert following commands. No focal deficits strength is equal symmetric. A/P Assessment and Plan Neuro/Psych: Left frontal/Left superior cerebellar CVA Monitor neuro status closely and avoid any sedatives. Repeat CT brain 01/08: Evolving left cerebellar stroke. No evidence of hemorrhage CT brain 01/05 -no acute intracranial process. MRI brain 01/07 showed acute nonhemorrhagic infarction in the left superior cerebellum involving the folia measured 1.6 cm. Several small areas of infarction in the left frontal white matter in an end vessel distribution. Carotid Doppler US 01/07: Mild visible plaque without significant hemodynamic stenosis Seen by neuro- Dr. Mercado. Continue with ASA and heparin drip. Okay to transition to warfarin 2.5 mg daily (started 01/14). Source likely left ventricular thrombus PT/OT/ST evaluate and treat Pulm: Acute respiratory insufficiency-resolved Supplemental oxygen to maintain sats above 92%. Albuterol/ipratropium aerosols every 6 hours with albuterol aerosols every 2 hours. Dyspnea. Piperacillin/tazobactam antibiotics for pneumonia Add EzPAP and a cappella Need frequent suctioning and aggressive pulmonary care CV: Hypertension Left ventricle apical thrombus 1.2 cm Systolic heart failure Peripheral vascular disease NSTEMI Monitor HR and BP and maintain MAP>65 mmHg. Cards is following- Dr. Grant, Lopressor 50mg Q6 and ASA 81mg daily. Echo showed small LV apical thrombus, EF 40-45% Continue with Heparin drip- cleared by Neuro and on warfarin. INR 1.5 continue to monitor /FEN/RENAL: Hypernatremia Hypo-potassium Hypophosphatemia Acute renal injury Monitor renal function Is and Os and avoid nephrotoxins, replacement per ICU electrolyte protocol Renal has followed- Dr. Howard. Renal function creatinine normalizing 02/15 NS at 100 ml per hr discontinued 01/15 . 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 NPO per speech. Monitor LFT's, continue with tube feeds via NGT ( Glucerna 1.5 with goal rate 45ml/hr) US Liver: No acute findings. Hepatitis profile: Hep C ab reactive. CT abdomen/pelvis: No acute abnormality observed. Colonic diverticulosis without acute inflammation. On Pepcid 10 mg IV q. 12 for GI prophylaxis. Monitor Lipase (now within normal) Heme: Leukocytosis Normocytic anemia Thrombocytopenia Monitor CBC Endo: Diabetes mellitus DKA resolved On medium SSI with Accu-Cheks before meals/at bedtime, insulin detemir 15 u BID. 7 units sliding scale past 24 hours ID: Klebsiella pneumonia Beta strep not A Healthcare associated pneumonia Fever trending down Cultures 01/09 sputum still pneumonia/beta strep not a Monitor for signs of infections( fever and WBC) 01/07 blood cultures- NGTD Continue empiric abx (piperacillin/tazobactam). Given 1 dose of vancomycin . GI prophylaxis with famotidine and DVT prophylaxis with SCDs./Heparin drip Level 2 follow-up. [facility] planned transfer to [facility] floor upon bed availability Dispo: Case management consult for disposition now that family has refused [place] rehabilitation Physician Yancy Murray MD Jan 16, 2017 13:35
[2017-01-16] MEDS: WARFARIN SOD 2.5 MG TAB PO SCH (16:57)
[2017-01-17] VITALS: BP 137/63; PULSE 69; RESP 23; TEMP 98.9; O2SAT 100
[2017-01-17] MEDS: HEPARIN-D5W 25,000 U/250 ML 250 ML IV PRN (01:02)
[2017-01-17] MEDS: METOPROLOL TARTRATE 50 MG TAB PO SCH ×3 (01:03→10:56)
[2017-01-17 02:00] VITALS: PULSE 78
[2017-01-17] MEDS: PIPERACIL-TAZO 3.375 GM PREMIX 50 ML IV SCH ×2 (02:06→05:31)
[2017-01-17] MEDS: CHLORHEXIDINE GLUCONATE 2 % 1 PACK (2 CLOTHS) TOP SCH (03:28)
[2017-01-17 04:00] VITALS: BP 116/58; PULSE 64; RESP 18; TEMP 98.5; O2SAT 99
[2017-01-17 06:00] VITALS: PULSE 77
[2017-01-17 07:56] VITALS: O2SAT 100
[2017-01-17 08:00] VITALS: BP 108/53; PULSE 62; RESP 20; TEMP 98.7; O2SAT 100
[2017-01-17] MEDS: INSULIN NovoLIN REGULAR SUPPLEMENTAL SCALE SQ SCH (08:00)
[2017-01-17] MEDS: DOCUSATE SODIUM 50 MG/SENNA 8.6 MG TAB PO SCH (09:00)
[2017-01-17] MEDS: ASPIRIN 81 MG CHEW TAB CHEW SCH (09:02)
[2017-01-17] MEDS: INSULIN DETEMIR 100 UNITS/ML VIAL SQ SCH (09:02)
[2017-01-17 09:21] LABS: APTT (PATIENT) 60.2 SEC (24.3-30.1); INTERNATIONAL NORMALIZED RATIO 1.4 RATIO; PROTHROMBIN TIME - PATIENT 14.6 SEC (9.8-11.6)
[2017-01-17 09:25] LABS: BICARBONATE 24.5 MEQ/L (21.0-32.0); POTASSIUM 3.2 MEQ/L (3.5-5.1)
--- NOTE | 2017-01-17 09:40 | PQ ---
Physician Query Response Document PATIENT: HOLLY IYER : 1950 ADMIT DATE: 01/05/2017 3:21 PM DISCH DATE: RESPONDING PROVIDER #: manny QUERY TEXT: Present On Admission It is unclear whether a diagnosis was present on admission. Your help is needed. Please clarify the POA status: CVA Such as: -- Present on admission -- Not present on admission PLEASE CALL [facility] @ EXT [phone] The patient's Clinical Indicators include: PATIENT PRESENTS 01/05 WITH ALTERED MENTAL STATUS AND DKA CT brain -no acute intracranial process. MRI brain 01/07 showed acute nonhemorrhagic infarction in the left superior cerebellum involving the folia measured 1.6 cm. Several small areas of infarction in the left frontal white matter in an end vessel distribution. Carotid doppler US 01/07: Mild visible plaque without significant hemodynamic stenosis Query created by: Lori Espinoza on 01/15/2017 4:12 PM RESPONSE TEXT: AMS -present on admission most likely secondary to cardiac thrombus Electronically signed by: Yancy Renteria MD 01/17/2017 9:36 AM
[2017-01-17] MEDS ORDERED: WARFARIN SOD 2.5 MG TAB PO SCH (09:45)
--- NOTE | 2017-01-17 09:56 | HHI.CCPN ---
Subjective Remarks/Hospital Course The patient is a 66-year-old male with past medical history of hypertension, peripheral vascular disease, type 2 diabetes mellitus who presented to [facility] emergency department for altered mental status. According to the patient's sister the last time she saw him was five days ago, she called the fire department today to check on him and when they arrived they saw the patient sitting in the bathroom not sure for how long and was unresponsive. The patient was altered and unable to give any history. His blood sugar at the scene was too high to register the and they started IV fluids and transferred into the emergency department. In the emergency room the patient was found to be in DKA and renal failure. His BMP showed severe hyperglycemia with a blood sugar of 1116 with severe metabolic acidosis and acute renal failure. His creatinine 5.0 with a BUN 68 in addition the patient was hyperkalemic with a potassium level 7.9 and a bicarb of 8.8. ABG showed severe metabolic acidosis with a pH of 7.12, CO2 21, pAO2 322, bicarb seven and saturation of 97%. Other significant labs on arrival showed lactic acidemia with elevated lactic acid level of 5.5 and elevated lipase level of 3507. His beta-hydroxybutyrate was measured at 11.4. Most of the history was obtained from the review of reviewing medical records and from my discussion with a sister who was present at the bedside. A chest x-ray In the emergency department showed no evidence of any acute cardiopulmonary disease. When seen in the emergency room the patient slowly responded to some the questions that was asked, He denies any abdominal pain, nausea or vomiting. In the emergency department was given 3 liters of crystalloids along with insulin 7.5 and units IV push and 1 gram of calcium chloride. He was placed on insulin drip in addition to amps of sodium bicarb was ordered. 01/06 Patient was on insulin drip 18u/hr overnight AG closed (13)this morning. Lactic acid resolved 1.1 from 5.5 on arrival. 01/07 No events overnight. Off insulin drip. Afebrile. Renal function is improving with Cr: 1.97 today, Na 150 from 155. 01/08 Patient is on 9L simple mask, renal function continue to improve with Cr: 1.52 from 1.97. MRI brain yesterday showed acute nonhemorrhagic infarction in the left superior cerebellum involving the folia measured 1.6 cm. Several small areas of infarction in the left frontal white matter in an end vessel distribution. 01/09 Patient is on 4L oxygen with good sats. T:99.9 Started on Heparin drip yesterday ( Echo showed LV apical thrombus) Repeat CT brain yesterday negative for bleed. 01/10: Mildly tachypneic today. Febrile overnight Tmax 101.6. Na 153. Cultures are pending 01/11: Appears to be in moderate respiratory distress today, difficulty with clearing secretions. Chest x-ray shows some pulmonary vascular congestion and basilar infiltrates, sputum culture with GNR. Sodium elevated at 158 increased from yesterday 153. Started 02/15 saline at 100 ML per hour, increased the water flushes. Afebrile today 01/12: Afebrile. Passed swallow evaluation today currently on a pured ADA diet. No acute issues overnight. Subjective 01/13: Resting currently in bed in no acute distress. Eating breakfast with a knife. Speech therapy recommended cognitive evaluation. Received 7 units insulin scale insulin overnight. On 3 L nasal cannula. 01/14: Patient oriented to name only, very confused thinks he is in [facility].. He was started on Coumadin 2.5 mg yesterday transitioning from IV heparin. 01/15: Noted intended for 01/15. No acute events patient scheduled for transfer to [facility] discussed with family member sister present in the room. Patient continues in restraints secondary to mild confusion. Tolerating diet 01/16: Afebrile. No acute events overnight. GCS remains 14, with confusion. Patient containing continue with restraints for patient safety. Patient previously scheduled for [facility] transfer now cancelled. Patient' s INR 1.5 today, patient continues on aspirin 01/17: No acute events overnight. No change in neurological status. Coumadin dose increased to 3.5 mg daily, the targeted goal of INR 2-3. Patient scheduled for possible discharge to LTAC facility today. Objective Vital Signs Date Time Temp Pulse Resp B/P (MAP) Pulse Ox O2 Delivery O2 Flow Rate FiO2 01/17/17 07:56 100 21 01/17/17 06:00 77 01/17/17 04:00 98.5 18 116/58 (77) 01/14/17 21:39 Nasal Cannula 2.00 Intake and Output 01/17/17 01/17/17 01/18/17 08:00 16:00 00:00 Intake Total 470 ml Balance 470 ml Result Diagram: 01/15/17 0839 01/17/17 0832 Imaging Last Impressions Chest X-Ray 01/12/17 0000 Signed Impressions: Service Date/Time: Thursday, January 12, 2017 07:30 - CONCLUSION: Unchanged bibasilar consolidations felt to relate to infectious infiltrates. Gama Rivers Jr., MD Head CT 01/08/17 0000 Signed Impressions: Service Date/Time: Sunday, January 08, 2017 16:17 - CONCLUSION: Evolving left cerebellar stroke. No evidence of hemorrhage. Nasogastric tube is coiled in the pharynx Lele Klein MD Carotid Artery Ultrasound 01/07/17 0000 Signed Impressions: Service Date/Time: Saturday, January 07, 2017 17:27 - CONCLUSION: 1. Mild visible plaque formation without hemodynamically significant stenosis. Michael Rhoades MD Brain MRI 01/07/17 0000 Signed Impressions: Service Date/Time: Saturday, January 07, 2017 13:44 - CONCLUSION: 1. Acute nonhemorrhagic infarction in the left superior cerebellum involving the folia measured 1.6 cm. 2. Several small areas of infarction in the left frontal white matter in an end vessel distribution. Gama Calderon MD Liver Ultrasound 01/06/17 0000 Signed Impressions: Service Date/Time: Friday, January 06, 2017 10:40 - CONCLUSION: 1. No acute findings. No free fluid. No gallstones or right-sided hydronephrosis. Mild fatty liver. Michael Rhoades MD Abdomen/Pelvis CT 01/05/17 0000 Signed Impressions: Service Date/Time: Thursday, January 05, 2017 16:38 - CONCLUSION: 1. No acute abnormality observed. In particular, no appreciable inflammatory process involving the pancreas. The pancreas is somewhat blurred by breathing motion artifact limiting its evaluation. 2. Colonic diverticulosis without acute inflammation. Gama Rivers Jr., MD Objective Remarks GENERAL: Patient is sitting up in chair, in no acute distress eating with assistance SKIN: Warm and dry. HEAD: Normocephalic. EYES: No scleral icterus. No injection or drainage. NECK: Supple, trachea midline. No JVD or lymphadenopathy. CARDIOVASCULAR: Regular rate. without murmurs, gallops, or rubs. RESPIRATORY: Breath sounds equal bilaterally. No accessory muscle use. Clear to auscultation bilaterally GASTROINTESTINAL: Abdomen soft, non-tender, nondistended. MUSCULOSKELETAL: No peripheral edema Neuro: GCS14 Awake, alert following commands. No focal deficits strength is equal symmetric. A/P Assessment and Plan Neuro/Psych: Left frontal/Left superior cerebellar CVA Monitor neuro status closely and avoid any sedatives. Repeat CT brain 01/08: Evolving left cerebellar stroke. No evidence of hemorrhage CT brain 01/05 -no acute intracranial process. MRI brain 01/07 showed acute nonhemorrhagic infarction in the left superior cerebellum involving the folia measured 1.6 cm. Several small areas of infarction in the left frontal white matter in an end vessel distribution. Carotid Doppler US 01/07: Mild visible plaque without significant hemodynamic stenosis Seen by neuro- Dr. Mercado. Continue with ASA and heparin drip. Okay to transition to warfarin 2.5 mg daily (started 01/14). Source likely left ventricular thrombus PT/OT/ST evaluate and treat Pulm: Acute respiratory insufficiency-resolved Supplemental oxygen to maintain sats above 92%. Albuterol/ipratropium aerosols every 6 hours with albuterol aerosols every 2 hours. Dyspnea. Piperacillin/tazobactam antibiotics for pneumonia Add EzPAP and a cappella Need frequent suctioning and aggressive pulmonary care CV: Hypertension Left ventricle apical thrombus 1.2 cm Systolic heart failure Peripheral vascular disease NSTEMI Monitor HR and BP and maintain MAP>65 mmHg. Cards is following- Dr. Grant, Lopressor 50mg Q6 and ASA 81mg daily. Echo showed small LV apical thrombus, EF 40-45% Heparin infusion discontinued, and an increased to 3.5 mg/d- targeted goal INR 2-3 /FEN/RENAL: Hypernatremia Hypo-potassium Hypophosphatemia Acute renal injury Monitor renal function Is and Os and avoid nephrotoxins, replacement per ICU electrolyte protocol Renal has followed- Dr. Howard. Renal function creatinine normalizing 02/15 NS at 100 ml per hr discontinued 01/15 . 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 NPO per speech. Monitor LFT's, continue with tube feeds via NGT ( Glucerna 1.5 with goal rate 45ml/hr) US Liver: No acute findings. Hepatitis profile: Hep C ab reactive. CT abdomen/pelvis: No acute abnormality observed. Colonic diverticulosis without acute inflammation. On Pepcid 10 mg IV q. 12 for GI prophylaxis. Monitor Lipase (now within normal) Heme: Leukocytosis Normocytic anemia Thrombocytopenia Monitor CBC Endo: Diabetes mellitus DKA resolved On medium SSI with Accu-Cheks before meals/at bedtime, insulin detemir 15 u BID. 7 units sliding scale past 24 hours ID: Klebsiella pneumonia Beta strep not A Healthcare associated pneumonia Fever trending down Cultures 01/09 sputum still pneumonia/beta strep not a Monitor for signs of infections( fever and WBC) 01/07 blood cultures- NGTD Discontinued (piperacillin/tazobactam) 01/17 . GI prophylaxis with famotidine and DVT prophylaxis with SCDs./Heparin drip Level 2 follow-up. Land discharged to LTAC facility today Physician Yancy Murray MD Jan 17, 2017 09:56
--- NOTE | 2017-01-17 10:07 | HHI.DS ---
Discharge Summary Admission Date Jan 05, 2017 at 15:21 Admitting Diagnosis DKA, hyperkalemia, acute renal failure, pancreatitis CBC/BMP: 01/15/17 0839 01/17/17 0832 Significant Findings Laboratory Tests Test 01/15/17 08:39 01/16/17 00:44 01/16/17 05:20 01/17/17 08:32 Red Blood Count 3.72 MIL/MM3 (4.50-5.90) Hemoglobin 10.9 GM/DL (13.0-17.0) Hematocrit 31.4 % (39.0-51.0) Prothrombin Time 14.1 SEC (9.8-11.6) 14.7 SEC (9.8-11.6) 14.6 SEC (9.8-11.6) Activated Partial Thromboplast Time 53.7 SEC (24.3-30.1) 46.6 SEC (24.3-30.1) 60.2 SEC (24.3-30.1) Total Protein 6.0 GM/DL (6.4-8.2) Calcium Level 7.3 MG/DL (8.5-10.1) 7.5 MG/DL (8.5-10.1) Potassium Level 3.3 MEQ/L (3.5-5.1) 3.2 MEQ/L (3.5-5.1) Chloride Level 111 MEQ/L (98-107) 111 MEQ/L (98-107) Protein Corrected Calcium 7.9 MG/DL (8.5-10.1) Random Glucose 59 MG/DL (74-106) Imaging Last Impressions Chest X-Ray 01/12/17 0000 Signed Impressions: Service Date/Time: Thursday, January 12, 2017 07:30 - CONCLUSION: Unchanged bibasilar consolidations felt to relate to infectious infiltrates. Gama Rivers Jr., MD Head CT 01/08/17 0000 Signed Impressions: Service Date/Time: Sunday, January 08, 2017 16:17 - CONCLUSION: Evolving left cerebellar stroke. No evidence of hemorrhage. Nasogastric tube is coiled in the pharynx Lele Klein MD Carotid Artery Ultrasound 01/07/17 0000 Signed Impressions: Service Date/Time: Saturday, January 07, 2017 17:27 - CONCLUSION: 1. Mild visible plaque formation without hemodynamically significant stenosis. Michael Rhoades MD Brain MRI 01/07/17 0000 Signed Impressions: Service Date/Time: Saturday, January 07, 2017 13:44 - CONCLUSION: 1. Acute nonhemorrhagic infarction in the left superior cerebellum involving the folia measured 1.6 cm. 2. Several small areas of infarction in the left frontal white matter in an end vessel distribution. Gama Calderon MD Liver Ultrasound 01/06/17 0000 Signed Impressions: Service Date/Time: Friday, January 06, 2017 10:40 - CONCLUSION: 1. No acute findings. No free fluid. No gallstones or right-sided hydronephrosis. Mild fatty liver. Michael Rhoades MD Abdomen/Pelvis CT 01/05/17 0000 Signed Impressions: Service Date/Time: Thursday, January 05, 2017 16:38 - CONCLUSION: 1. No acute abnormality observed. In particular, no appreciable inflammatory process involving the pancreas. The pancreas is somewhat blurred by breathing motion artifact limiting its evaluation. 2. Colonic diverticulosis without acute inflammation. Gama Rivers Jr., MD PE at Discharge GENERAL: No developed well-nourished male, pleasant and confused, cooperative SKIN: Warm and dry. HEAD: Atraumatic. Normocephalic. EYES: Pupils equal and round. No scleral icterus. No injection or drainage. ENT: No nasal bleeding or discharge. Mucous membranes pink and moist. NECK: Trachea midline. No JVD. CARDIOVASCULAR: Normal rate, regular rhythm. RESPIRATORY: No accessory muscle use. Clear to auscultation. Breath sounds equal bilaterally. GASTROINTESTINAL: Abdomen soft, non-tender, nondistended. No guarding. MUSCULOSKELETAL: Extremities without clubbing, cyanosis, or edema. No obvious deformities. NEUROLOGICAL: GCS 14. Awake and alert. RASS 0. No gross focal/sensory deficits. Follows commands in all 4 extremities. Hospital Course The patient is a 66-year-old male with past medical history of hypertension, peripheral vascular disease, type 2 diabetes mellitus who presented to [facility] emergency department for altered mental status. According to the patient's sister the last time she saw him was five days ago, she called the fire department today to check on him and when they arrived they saw the patient sitting in the bathroom not sure for how long and was unresponsive. The patient was altered and unable to give any history. His blood sugar at the scene was too high to register the and they started IV fluids and transferred into the emergency department. In the emergency room the patient was found to be in DKA and renal failure. His BMP showed severe hyperglycemia with a blood sugar of 1116 with severe metabolic acidosis and acute renal failure. His creatinine 5.0 with a BUN 68 in addition the patient was hyperkalemic with a potassium level 7.9 and a bicarb of 8.8. ABG showed severe metabolic acidosis with a pH of 7.12, CO2 21, pAO2 322, bicarb seven and saturation of 97%. Other significant labs on arrival showed lactic acidemia with elevated lactic acid level of 5.5 and elevated lipase level of 3507. His beta-hydroxybutyrate was measured at 11.4. Most of the history was obtained from the review of reviewing medical records and from my discussion with a sister who was present at the bedside. A chest x-ray In the emergency department showed no evidence of any acute cardiopulmonary disease. When seen in the emergency room the patient slowly responded to some the questions that was asked, He denies any abdominal pain, nausea or vomiting. In the emergency department was given 3 liters of crystalloids along with insulin 7.5 and units IV push and 1 gram of calcium chloride. He was placed on insulin drip in addition to amps of sodium bicarb was ordered. 01/06 Patient was on insulin drip 18u/hr overnight AG closed (13)this morning. Lactic acid resolved 1.1 from 5.5 on arrival. 01/07 No events overnight. Off insulin drip. Afebrile. Renal function is improving with Cr: 1.97 today, Na 150 from 155. 01/08 Patient is on 9L simple mask, renal function continue to improve with Cr: 1.52 from 1.97. MRI brain yesterday showed acute nonhemorrhagic infarction in the left superior cerebellum involving the folia measured 1.6 cm. Several small areas of infarction in the left frontal white matter in an end vessel distribution. 01/09 Patient is on 4L oxygen with good sats. T:99.9 Started on Heparin drip yesterday ( Echo showed LV apical thrombus) Repeat CT brain yesterday negative for bleed. 01/10: Mildly tachypneic today. Febrile overnight Tmax 101.6. Na 153. Cultures are pending 01/11: Appears to be in moderate respiratory distress today, difficulty with clearing secretions. Chest x-ray shows some pulmonary vascular congestion and basilar infiltrates, sputum culture with GNR. Sodium elevated at 158 increased from yesterday 153. Started 02/15 saline at 100 ML per hour, increased the water flushes. Afebrile today 01/12: Afebrile. Passed swallow evaluation today currently on a pured ADA diet. No acute issues overnight. Subjective 01/13: Resting currently in bed in no acute distress. Eating breakfast with a knife. Speech therapy recommended cognitive evaluation. Received 7 units insulin scale insulin overnight. On 3 L nasal cannula. 01/14: Patient oriented to name only, very confused thinks he is in [facility].. He was started on Coumadin 2.5 mg yesterday transitioning from IV heparin. 01/15: Noted intended for 01/15. No acute events patient scheduled for transfer to [facility] discussed with family member sister present in the room. Patient continues in restraints secondary to mild confusion. Tolerating diet 01/16: Afebrile. No acute events overnight. GCS remains 14, with confusion. Patient containing continue with restraints for patient safety. Patient previously scheduled for [facility] transfer now cancelled. Patient' s INR 1.5 today, patient continues on aspirin 01/17: No acute events overnight. No change in neurological status. Coumadin dose increased to 3.5 mg daily, the targeted goal of INR 2-3. Patient scheduled for possible discharge to LTAC facility today. Pt Condition on Discharge: Stable Discharge Disposition: Discharge to SNF Discharge Instructions DIET: Follow Instructions for: Heart Healthy Diet Speech Therapy-Diet Recommends: Regular Activities you can perform: See Additionl Instruction Other Activity Instructions: Of bed to chair with assistance, assistance with eating. Patient's GCS 14 confused will need assistance. Currently patient has soft wrist restraints for patient safety. Medication Profile: Unable to Obtain Active Prescriptions or Reported Meds Additional Information Closely Monitor INR, with targeted goal 2-3. Coumadin increased 01/17/17 to 3.5 mg daily CCT 20 mins Yancy Renteria MD Jan 17, 2017 10:07
--- NOTE | 2017-01-17 12:33 | PD.WCN.NOT ---
Wound Consult Additional Information: Attempted to see patient around 1145. Patient is being discharged to SNF. Spoke with nurse regarding R buttock wound management consult. Patient has no open wounds just denuded irritated skin. Jessica Pennington [facility] Jan 17, 2017 12:33
[2017-01-17] MEDS ORDERED: WARFARIN SOD 1 MG TAB PO SCH (16:00)
[2017-01-18 03:50] LABS: HCV RNA PCR IU/ML 831000 IU/mL (0-14); HCV RNA PCR LOGIU/ML 5.92 (0-1.18)
[2017-01-18 15:50] LABS: HEPATITIS C RNA GENOTYPE 1a (NOT DETECTD)
== END 2017-01-17 12:50 | DRG 637 ==
LOC: NEPE 13:22 → EDBD 15:21 → NEDA 15:21 → HIMW 17:08 → HIME 01-06 10:08
PROVIDERS: ADMIT Internal Medicine Critical Care Medicine; ATTEND Internal Medicine Critical Care Medicine
DX: E11.10 Type 2 diabetes mellitus with ketoacidosis without coma (principal); I21.4 Non-ST elevation (NSTEMI) myocardial infarction; I63.9 Cerebral infarction, unspecified; I11.0 Hypertensive heart disease with heart failure; N17.9 Acute kidney failure, unspecified; E87.0 Hyperosmolality and hypernatremia; J15.0 Pneumonia due to Klebsiella pneumoniae; I50.20 Unspecified systolic (congestive) heart failure; E87.1 Hypo-osmolality and hyponatremia; I51.3 Intracardiac thrombosis, not elsewhere classified; E11.51 Type 2 diabetes mellitus with diabetic peripheral angiopathy without gangrene; Z79.4 Long term (current) use of insulin; E87.5 Hyperkalemia; D48.1 Neoplasm of uncertain behavior of connective and other soft tissue; Z86.73 Personal history of transient ischemic attack (TIA), and cerebral infarction without residual deficits; Y95 Nosocomial condition; Z78.1 Physical restraint status; Z87.891 Personal history of nicotine dependence; Z90.3 Acquired absence of stomach [part of]
CPT/HCPCS: 36600; 70450; 70551; 71010; 74176; 76705; 76937; 80048; 80053; 80074; 80307; 81001; 81002; 82010; 82140; 82550; 82552; 82805; 82947; 82948; 83605; 83690; 83735; 83880; 84100; 84132; 84155; 84484; 85007; 85025; 85027; 85610; 85730; 87040; 87070; 87077; 87086; 87186; 87205; 87493; 87522; 87641; 87902; 93005; 93306; 93880; 94150; 94640; 94664; 94667; 96361; 96374; J0360; J1644; J1815; J1817; J1940; J2543; J3370; J3480; J7030; J7042; J7050; J7070